=== PATIENT | male | born 1965 | race Caucasian/White ===

== ENCOUNTER 2023-05-14 12:41 | Outpatient (OUT) | payer OTHER, SELFPAY ==
[2023-05-14 12:50] LABS: Basophils Absolute Auto 0.1 10^3/uL (0.0-0.1); Eosinophils Absolute Auto 0.2 10^3/uL (0.0-0.7); Eosinophils Percent Auto 2.7 % (0.9-7.0); Hematocrit 35.5 % (42.0-54.0); Immature Granulocytes Abs Auto 0.01 10^3/uL (0.00-0.03); Immature Granulocytes Pct Auto 0.1 % (0.0-0.5); Lymphocytes Absolute Auto 2.5 10^3/uL (1.2-3.8); Lymphocytes Percent Auto 32.6 % (20.5-60.0); Mean Corpuscular Hemoglobin 24.7 pg (25.9-34.0); Mean Corpuscular Volume 79.6 fL (80.0-94.0); Mean Platelet Volume 9.4 fL (9.5-13.5); Monocytes Absolute Auto 0.9 10^3/uL (0.3-0.8); Monocytes Percent Auto 11.7 % (1.7-12.0); Neutrophils Absolute Auto 4.1 10^3/uL (1.4-6.5); Neutrophils Percent Auto 51.9 % (43.0-75.0); Platelet Count 313 10^3/uL (150-450); Red Blood Count 4.46 10^6/uL (4.70-6.10); Red Cell Distribution Width 18.4 % (11.0-15.0); White Blood Count 7.8 10^3/uL (4.0-11.0)
[2023-05-14 13:48] LABS: Alanine Aminotransferase 63 U/L (16-63); Albumin Level 3.6 g/dL (3.4-5.0); Alkaline Phosphatase 57 U/L (46-116); Anion Gap 9.1; Aspartate Amino Transferase 36 U/L (15-37); Bilirubin Total 0.4 mg/dL (0.2-1.0); Calcium 9.4 mg/dL (8.5-10.1); Carbon Dioxide 30.9 mmol/L (21.0-32.0); Chloride 102 mmol/L (98-107); Chol HDL Ratio 2.3; Cholesterol 114 mg/dL (<=200); Estimated GFR (African America >60 (>=60); Estimated GFR (Non-African Ame 57 (>=60); Globulin 3.7 g/dL; Glucose 104 mg/dL (74-106); HDL Cholesterol 50 mg/dL (40-60); Sodium 138 mmol/L (136-145); Total Protein 7.3 g/dL (6.4-8.2); Triglycerides 60 mg/dL (<=150)
== END 2023-05-14 12:42 | disposition home or self-care (01) ==
LOC: LAB 12:41
PROVIDERS: PCP Family Medicine; Visit Provider Nurse Practitioner Acute Care
DX: I25.10 Atherosclerotic heart disease of native coronary artery without angina pectoris (principal); I73.9 Peripheral vascular disease, unspecified
CPT/HCPCS: 36415; 80053; 80061; 85025

== ENCOUNTER 2023-06-03 07:36 | Outpatient (OUT) | payer OTHER, SELFPAY ==
--- NOTE | 2023-06-03 08:43 | CA_ITS ---
The [facility] Test Date: 2023-06-03 Pat Name: YOGI SPEARS Department: Room: - Gender: Male Hand Grinder: Shaniqua Allen : 1965 Requested By: [id number] Order Number: [id number] Reading MD: AIRAM BAPTISTE Interpretive Statements Biphasic doppler waveforms PVR waveforms with delayed upstroke, blunted amplitude and loss of dicrotic notch Right: - no significant pressure gradient between cuffs - abnormal KEISHA Left: - significant pressure gradient between the thigh and calf cuff - abnormal KEISHA Impression - significant arterial disease of the right lower extremity with mild hemodynamic impairment of the right lower extremity at rest (right KEISHA 0.94) - significant left femoropopliteal arterial disease with mild hemodynamic impairment of the left lower extremity at rest (left KEISHA 0.94) Electronically Signed On 06-04-2023 7:28:13 EDT by AIRAM BAPTISTE
== END 2023-06-03 07:37 | disposition home or self-care (01) ==
LOC: CARD 07:37
PROVIDERS: PCP Family Medicine; Visit Provider Nurse Practitioner Acute Care
DX: I73.9 Peripheral vascular disease, unspecified (principal)
CPT/HCPCS: 93924

== ENCOUNTER 2023-06-24 08:59 | Outpatient (OUT) | payer OTHER, SELFPAY ==
[2023-06-24 09:14] LABS: Estimated GFR (African America 59 (>=60); Estimated GFR (Non-African Ame 48 (>=60)
--- NOTE | 2023-06-24 10:00 | CT_ITS ---
The [address] [address] Patient Name: YOGI SPEARS MRN: [id number] date: 1965 Sex: M Assigned Patient Location: LAB Current Patient Location: LAB Accession/Order Number: [id number] Exam Date: 06/24/2023 09:35 Report Date: 06/24/2023 11:36 At the request of: TUYET LANGSTON Procedure: CT angio LE BI CT angio LE BI, 06/24/2023 9:35 AM EDT INDICATION: Peripheral Vacular Disease I73.9 COMPARISON: CT of chest and abdomen and pelvis of the same date. Technique: Axial images of 2 millimeters are obtained from the hepatic dome to feet with IV injection with MIP sagittal and coronal reconstructions. 3-D images were obtained with MIP reconstructions. Dose reduction techniques were achieved by using automated exposure control and/or adjustment of mA and/or kV according to patient size and/or use of iterative reconstruction technique. FINDINGS: Lung: The base of lungs are clear. No pleural effusion is noted. Liver and gallbladder: Unremarkable Kidneys and urinary bladder: Unremarkable The adrenal glands, pancreas, and spleen are unremarkable. Aorta: Mild atherosclerotic changes within the aorta with no significant stenosis. The celiac SMA and DIEGO and renal arteries are patent. There is one renal artery for each kidney. On the right: Moderate atherosclerotic changes within the right iliac arteries with no significant stenosis. The right common femoral shows mild stenosis. The stent within the proximal portion of the right superficial femoral artery is noted. There is mild focal stenosis in the distal right superficial femoral artery. The popliteal artery shows moderate focal stenosis in the distal portion. There is three-vessel runoff to the ankle. On the left: Mild atherosclerotic changes within the left iliac arteries. There is a focal stenosis in the midportion of the left external iliac artery. The left common femoral artery is unremarkable. There is a stent within the left superficial femoral artery. Moderate focal stenosis distal to the stent in the left superficial femoral artery is noted. There is mild focal stenosis in the proximal left popliteal artery. There is three-vessel runoff to the left ankle. Lymph node: There is no free fluid or lymph node enlargement by size criteria in the abdomen and pelvis. Bowel: No abnormality of small or large bowel is noted. Bone: There is no suspicious osteolytic or osteoblastic lesion. Mild soft tissue swelling within the both calves. IMPRESSION: 1. Mild focal stenosis in the distal right superficial femoral artery. Moderate focal stenosis in the distal left popliteal artery. 2. Mild focal stenosis within the mid left external iliac artery. Mild focal stenosis within the distal left superficial femoral artery. Bilateral three-vessel runoff to the ankles. Arterial stenosis reference: Mild = <50% stenosis. Moderate = 50-69% stenosis. Severe = >70% stenosis. Electronically authenticated by: FAYE WEN Date: 06/24/2023 11:36
== END 2023-06-24 09:00 | disposition home or self-care (01) ==
LOC: LAB 08:59
PROVIDERS: PCP Family Medicine; Visit Provider Family Medicine
DX: I73.9 Peripheral vascular disease, unspecified (principal)
CPT/HCPCS: 36415; 73706; 82565; Q9967

== ENCOUNTER 2023-11-01 14:00 | Outpatient (OUT) | payer OTHER, SELFPAY ==
[2023-11-01 14:33] LABS: Basophils Absolute Auto 0.1 10^3/uL (0.0-0.1); Basophils Percent Auto 0.4 % (0.2-2.0); Eosinophils Absolute Auto 0.2 10^3/uL (0.0-0.7); Eosinophils Percent Auto 1.2 % (0.9-7.0); Hematocrit 34.1 % (42.0-54.0); Hemoglobin 10.2 g/dL (14.0-18.0); Immature Granulocytes Abs Auto 0.05 10^3/uL (0.00-0.03); Immature Granulocytes Pct Auto 0.3 % (0.0-0.5); Lymphocytes Absolute Auto 3.5 10^3/uL (1.2-3.8); Lymphocytes Percent Auto 21.4 % (20.5-60.0); Mean Corpuscular HGB Conc 29.9 g/dL (29.9-35.2); Mean Corpuscular Hemoglobin 23.2 pg (25.9-34.0); Mean Corpuscular Volume 77.7 fL (80.0-94.0); Mean Platelet Volume 9.7 fL (9.5-13.5); Monocytes Absolute Auto 1.4 10^3/uL (0.3-0.8); Monocytes Percent Auto 8.5 % (1.7-12.0); Neutrophils Absolute Auto 11.2 10^3/uL (1.4-6.5); Neutrophils Percent Auto 68.2 % (43.0-75.0); Platelet Count 305 10^3/uL (150-450); Red Blood Count 4.39 10^6/uL (4.70-6.10); Red Cell Distribution Width 21.1 % (11.0-15.0); White Blood Count 16.4 10^3/uL (4.0-11.0)
[2023-11-01 14:45] LABS: Estimated Average Glucose 134 mg/dL; Glycohemoglobin A1C 6.3 % (4.5-6.2)
[2023-11-01 15:24] LABS: Prostate Specific Antigen Scrn 0.49 ng/mL (<=4.00)
[2023-11-01 15:28] LABS: Alanine Aminotransferase 23 U/L (16-63); Albumin Globulin Ratio 0.8; Albumin Level 3.1 g/dL (3.4-5.0); Alkaline Phosphatase 59 U/L (46-116); Aspartate Amino Transferase 11 U/L (15-37); BUN Creatinine Ratio 26.1; Bilirubin Total 0.4 mg/dL (0.2-1.0); Calcium 8.8 mg/dL (8.5-10.1); Carbon Dioxide 26.5 mmol/L (21.0-32.0); Chloride 106 mmol/L (98-107); Chol HDL Ratio 2.2; Cholesterol 123 mg/dL (<=200); Estimated GFR (African America >60 (>=60); Estimated GFR (Non-African Ame >60 (>=60); Free T3 1.65 pg/mL (2.18-3.98); Globulin 3.9 g/dL; Glucose 96 mg/dL (74-106); HDL Cholesterol 55 mg/dL (40-60); LDL Cholesterol Calculated 60.8 mg/dL; Potassium 4.5 mmol/L (3.5-5.1); Sodium 139 mmol/L (136-145); Triglycerides 36 mg/dL (<=150); VLDL CHOLESTEROL 7.2 mg/dL
== END 2023-11-01 14:01 | disposition home or self-care (01) ==
LOC: LAB 14:01
PROVIDERS: PCP Family Medicine; Visit Provider Family Medicine
DX: Z00.00 Encounter for general adult medical examination without abnormal findings (principal); I10 Essential (primary) hypertension
CPT/HCPCS: 36415; 80053; 80061; 83036; 84436; 84443; 84481; 85025; G0103

== ENCOUNTER 2024-01-04 09:52 | Outpatient (OUT) | payer OTHER, SELFPAY ==
--- NOTE | 2024-01-04 10:36 | CT_ITS ---
[address] [address] Patient Name: YOGI SPEARS MRN: [id number] date: 1965 Sex: M Assigned Patient Location: CT Current Patient Location: CARD Accession/Order Number: [id number] Exam Date: 01/04/2024 10:40 Report Date: 01/04/2024 15:34 At the request of: TUYET LANGSTON Procedure: CT lung screening low-dose EXAMINATION: CT lung screening low-dose HISTORY: Nicotine Dependence F17.200 COMPARISON: No relevant comparison available. TECHNIQUE: Multi-planar CT images were obtained without and/or with IV contrast as indicated by examination type. Axial, Coronal, and Sagittal images. Dose reduction techniques were achieved by using automated exposure control and/or adjustment of mA and/or kV according to patient size and/or use of iterative reconstruction technique. FINDINGS: LUNGS: Large calcified granuloma within right lung. No appreciable infiltrates or suspicious mass. PLEURA: No mass, effusion, or pneumothorax. VASCULATURE: No abnormality. FELICIA: A few calcified lymph nodes suggestive of chronic granulomatous disease. MEDIASTINUM: A few calcified lymph nodes. CARDIAC: No enlargement, pericardial thickening, or significant calcification. Coronary artery calcifications: Mild. AORTA: No aneurysm or dissection. CHEST WALL: No mass or axillary adenopathy. BONES: No bone lesion or fracture. LIMITED ABDOMEN: No suspicious findings Limited images of the upper abdomen. OTHER: Negative. CT/CT lung screening low-dose IMPRESSION: 1. Lung-RADS Category 1 Negative. No nodules and definitely benign nodules. Continue annual screening with LDCT in 12 months. Electronically authenticated by: ROSEY GATES Date: 01/04/2024 15:34
== END 2024-01-04 09:53 | disposition home or self-care (01) ==
LOC: CT 09:53
PROVIDERS: PCP Family Medicine; Visit Provider Family Medicine
DX: J20.9 Acute bronchitis, unspecified (principal); F17.200 Nicotine dependence, unspecified, uncomplicated
CPT/HCPCS: 71271

== ENCOUNTER 2024-01-04 09:54 | Outpatient (OUT) | payer OTHER, SELFPAY ==
--- NOTE | 2024-01-04 10:00 | CA_ITS ---
Patient Name: YOGI SPEARS MR#: [id number] : 1965 Exam Date: 01/04/2024 Ordering Doctor: DR LEANNE MAIN M.D. ECHOCARDIOGRAM REPORT PROCEDURE: CA ECHO DOPPLER COMPLETE INDICATIONS: Edema, smoker, hypertension, diabetes, h/o CVA, COMPARISON: None. DESCRIPTION: COMPLETE ECHOCARDIOGRAM Real-time transthoracic echocardiography with 2D, M-mode, spectral and color flow Doppler performed. QUALITY: Technical quality was good. 64 , 175#, BSA 1.85 m2, BP 112/70 LEFT VENTRICLE: Normal chamber size. Normal left ventricular wall thickness. LV EF: Global left ventricular systolic function is normal; visually estimated ejection fraction is 60 to 65%. No obvious wall motion abnormalities. DIASTOLIC: Normal diastolic function. ATRIAL SEPTUM: Visually appears intact. LEFT ATRIUM: Normal chamber size. RIGHT ATRIUM: Normal chamber size. RIGHT VENTRICLE: Normal chamber size. Normal right ventricular systolic function. TRICUSPID VALVE: Normal mobility and thickness. No stenosis with trivial regurgitation. Unable to assess right-sided pressures due to lack of measurable tricuspid regurgitation. MITRAL VALVE: Normal mobility and thickness. No evidence of mitral valve stenosis. There is no mitral annular calcification. No mitral regurgitation. AORTIC VALVE: Normal trileaflet appearance. No visible sclerosis. Normal leaflet mobility. No evidence of aortic valve stenosis. No aortic regurgitation. AORTIC ROOT: Normal diameter and appearance. Ascending aorta is normal in size. PULMONIC VALVE: Normal thickness and mobility. No stenosis. No regurgitation. PERICARDIUM: No evidence of pericardial effusion. IVC: Collapses with inspirations. IVC is normal in size. CONCLUSION: 1. Global left ventricular systolic function is normal; visually estimated ejection fraction is 60 to 65% 2. Normal right ventricular size and systolic function 3. Normal diastolic function 4. No significant valvular abnormalities Adult Echocardiography Procedure Report Left Ventricle LVEDD (3.7 - 5.6 cm): 4.40 cm LVESD (2.2 - 4.0 cm): 3.41 cm LVIVS thickness (0.6 - 1.2 cm): 1.01 cm LVPW thickness (0.5 - 1.0 cm): 0.94 cm e': 0.11 m/s E - e': 7.28 LVOT Max Gradient: 2.40 mm[Hg], 2.47 mm[Hg] LVOT Area (cm2): 0.78 m/s Peak Velocity (LVOT): 0.77 m/s, 0.79 m/s Mean Velocity (LVOT): 0.55 m/s LVOT Diameter 2.48 cm Left Atrium LA Volume Index (2D A2C): 36.07 ml/m2 Left Atrium Systolic Dimension: 3.66 cm Mitral Valve MV E to A Ratio: 1.14 Mitral Valve A-Wave Peak Velocity: 0.69 m/s Mitral Valve E-Wave Peak Velocity: 0.79 m/s Right Ventricle Aorta AO Root Diam: 3.35 cm Ascending Ao Diam: 2.62 cm Aortic Valve AoV Area (Peak Ehsan): 3.02 cm2, 2.99 cm2 AoV Area (VTI): 3.04 cm2, 2.92 cm2 Peak Velocity(Antegrade Flow): 1.25 m/s Peak Gradient(Antegrade Flow): 6.23 mm[Hg] Mean Velocity(Antegrade Flow): 0.89 m/s Mean Gradient(Antegrade Flow): 3.52 mm[Hg] Velocity Time Integral: 31.69 cm Tricuspid Valve Pulmonic Valve Mean Gradient: 1.75 mm[Hg] Mean Velocity: 0.63 m/s Peak Velocity: 0.84 m/s, 0.83 m/s Peak Gradient: 2.77 mm[Hg], 2.80 mm[Hg] Right Atrium Right Atrium Systolic Pressure: 30.28 ml, 30.28 ml Dictated by: Leanne Main M.D. on 01/04/2024 at 14:12 Approved by: Leanne Main M.D. on 01/04/2024 at 14:14
== END 2024-01-04 09:55 | disposition home or self-care (01) ==
LOC: CARD 09:55
PROVIDERS: PCP Family Medicine; Visit Provider Internal Medicine Interventional Cardiology
DX: R60.0 Localized edema (principal); J20.9 Acute bronchitis, unspecified; F17.200 Nicotine dependence, unspecified, uncomplicated
CPT/HCPCS: 71271; 93306

== ENCOUNTER 2024-11-29 13:20 | Outpatient (OUT) | payer OTHER, SELFPAY ==
[2024-11-29 14:20] LABS: Basophils Absolute Auto 0.1 10^3/uL (0.0-0.1); Basophils Percent Auto 0.9 % (0.2-2.0); Eosinophils Absolute Auto 0.3 10^3/uL (0.0-0.7); Eosinophils Percent Auto 3.4 % (0.9-7.0); Hematocrit 36.4 % (42.0-54.0); Hemoglobin 11.2 g/dL (14.0-18.0); Immature Granulocytes Abs Auto 0.03 10^3/uL (0.00-0.03); Immature Granulocytes Pct Auto 0.4 % (0.0-0.5); Lymphocytes Absolute Auto 2.6 10^3/uL (1.2-3.8); Lymphocytes Percent Auto 32.3 % (20.5-60.0); Mean Corpuscular HGB Conc 30.8 g/dL (29.9-35.2); Mean Corpuscular Hemoglobin 22.7 pg (25.9-34.0); Mean Corpuscular Volume 73.8 fL (80.0-94.0); Monocytes Absolute Auto 0.9 10^3/uL (0.3-0.8); Monocytes Percent Auto 10.8 % (1.7-12.0); Neutrophils Absolute Auto 4.3 10^3/uL (1.4-6.5); Neutrophils Percent Auto 52.2 % (43.0-75.0); Platelet Count 263 10^3/uL (150-450); Red Blood Count 4.93 10^6/uL (4.70-6.10); Red Cell Distribution Width 20.4 % (11.0-15.0); White Blood Count 8.1 10^3/uL (4.0-11.0)
[2024-11-29 14:49] LABS: Alanine Aminotransferase 46 U/L (16-63); Albumin Globulin Ratio 0.9; Albumin Level 3.4 g/dL (3.4-5.0); Alkaline Phosphatase 63 U/L (46-116); Anion Gap 10.2; Aspartate Amino Transferase 29 U/L (15-37); BUN Creatinine Ratio 15.6; Bilirubin Total 0.4 mg/dL (0.2-1.0); Chloride 104 mmol/L (98-107); Chol HDL Ratio 2.2; Cholesterol 102 mg/dL (<=200); Estimated GFR (African America >60 (>=60 mL/min/1.73m^2); Estimated GFR (Non-African Ame >60 (>=60 mL/min/1.73m^2); Free T3 2.64 pg/mL (2.18-3.98); Globulin 3.8 g/dL; Glucose 95 mg/dL (74-106); HDL Cholesterol 46 mg/dL (40-60); LDL Cholesterol Calculated 47.4 mg/dL; Potassium 4.2 mmol/L (3.5-5.1); Sodium 140 mmol/L (136-145); Thyroid Stimulating Hormone 1.176 uIU/mL (0.358-3.740); Total Protein 7.2 g/dL (6.4-8.2); Triglycerides 43 mg/dL (<=150); VLDL CHOLESTEROL 8.6 mg/dL
[2024-11-29 15:08] LABS: Estimated Average Glucose 128 mg/dL; Glycohemoglobin A1C 6.1 % (4.5-6.2)
== END 2024-11-29 13:21 | disposition home or self-care (01) ==
LOC: LAB 13:21
PROVIDERS: PCP Family Medicine; Visit Provider Family Medicine
DX: Z00.00 Encounter for general adult medical examination without abnormal findings (principal)
CPT/HCPCS: 36415; 80053; 80061; 83036; 84436; 84443; 84481; 85025; G0103

== ENCOUNTER 2024-11-30 12:59 | Outpatient (REF) | payer OTHER, SELFPAY ==
[2024-11-30 14:43] LABS: Internal Control Within Normal Limits; Occult Blood Negative
== END 2024-11-30 13:00 | disposition home or self-care (01) ==
LOC: LAB 12:59
PROVIDERS: PCP Family Medicine; Visit Provider Family Medicine
DX: Z00.00 Encounter for general adult medical examination without abnormal findings (principal)
CPT/HCPCS: G0328

== ENCOUNTER 2024-12-28 13:13 | Outpatient (OUT) | payer OTHER, SELFPAY ==
[2024-12-28 14:44] LABS: Free T3 2.36 pg/mL (2.18-3.98); Thyroid Stimulating Hormone 1.726 uIU/mL (0.358-3.740)
== END 2024-12-28 13:14 | disposition home or self-care (01) ==
LOC: LAB 13:14
PROVIDERS: PCP Family Medicine; Visit Provider Family Medicine
DX: E05.90 Thyrotoxicosis, unspecified without thyrotoxic crisis or storm (principal)
CPT/HCPCS: 36415; 84436; 84443; 84481

== ENCOUNTER 2024-12-29 12:58 | Outpatient (OUT) | payer OTHER, SELFPAY ==
--- NOTE | 2024-12-29 13:00 | CT_ITS ---
The [address] [address] Patient Name: YOGI SPEARS MRN: [id number] date: 1965 Sex: M Assigned Patient Location: CT Current Patient Location: CT Accession/Order Number: [id number] Exam Date: 12/29/2024 14:37 Report Date: 12/29/2024 14:40 At the request of: TUYET LANGSTON MD Procedure: CT chest wo con CT CHEST WITHOUT IV CONTRAST: CLINICAL HISTORY: Aspiration Pneumonia COMPARISON: CT chest 01/04/2024 TECHNIQUE: Spiral images were obtained through the chest without IV contrast. This CT exam was performed using one or more following dose reduction techniques: Automated exposure control, adjustment of the mA and/or kV according to patient size, or use of iterative reconstruction technique. FINDINGS: Mediastinum:Thoracic aorta is normal in caliber. Pulmonary trunk appears nondilated. No pericardial effusion. Partially calcified mediastinal and hilar lymph nodes. The esophagus is grossly unremarkable. Lungs:Emphysema. No consolidation pneumothorax or pleural effusion. Calcified granuloma right upper lobe. Abd:Splenic granulomas. Soft tissues/Bones: No acute findings. Osseous structures demonstrate degenerative change. CT/CT chest wo con IMPRESSION: No acute findings. Impression dictated by: Altaf Vega Jr., D.O. 12/29/2024 2:40 PM Dictation Location: [place] [address] Electronically authenticated by: [id number] Y Date: 12/29/2024 14:40
== END 2024-12-29 12:59 | disposition home or self-care (01) ==
LOC: CT 12:58
PROVIDERS: PCP Family Medicine; Visit Provider Family Medicine
DX: J69.0 Pneumonitis due to inhalation of food and vomit (principal)
CPT/HCPCS: 71250

== ENCOUNTER 2025-03-13 10:37 | Outpatient (OUT) | payer OTHER, SELFPAY ==
--- NOTE | 2025-03-13 10:45 | NM_ITS ---
Patient Name: YOGI SPEARS MR#: [id number] : 1965 Exam Date: 03/13/2025 Ordering Doctor: DR LEANNE MELO M.D. RADIOLOGY REPORT PROCEDURE: NM TARIK PERF SPECT REST STR COMPARISON: None. INDICATIONS: CORONARY ARTERY DISEASE, SILENT MYOCARDIAL ISCHEMIA TECHNIQUE: Exam Description: Stress/Rest one day protocol gated SPECT Rest Imagin.9 mCi Tc-99m Cardiolite IV on 03/13/2025 Stress Imaging 30.9 mCi Tc-99m Cardiolite IV on 03/13/2025 Exercise Protocol: 0.4 mg Lexiscan given IV Heart Rate (bpm): Rest: 90 Max: 114 PMHR: 70 Blood Pressure: Rest: 140/86 Max: 144/82 Symptoms: Rest and peak stress ECG findings were pending and the EKG portion of the study was pending per attending physician [facility] [[email or web address]] . For more details please see separate cardiac stress test report. FINDINGS: QUALITY OF STUDY: Good PERFUSION DEFECT: LOCATION: Inferolateral SIZE: Small SEVERITY: Mild TYPE: Reversible WALL MOTION: LV SIZE: End-diastolic volume 105 mL. TID / TCD: 1.0 LVEF: Calculated EF 57%. SUMMARY: Abnormal myocardial perfusion imaging study CONCLUSION: Abnormal myocardial perfusion stress test showing small area of mild inferolateral ischemia Normal left ventricle systolic function, ejection fraction 57% No evidence of transient ischemic dilatation, TID 1.0 EKG portion of stress test is reported separately Dictated by: Ventura Pierce MD on 03/13/2025 at 18:58 Approved by: Ventura Pierce MD on 03/13/2025 at 19:02
[2025-03-13] MEDS: REGADENOSON 0.4 MG/5 ML SYRINGE IV (13:10)
--- NOTE | 2025-03-13 17:00 | PM.STRESS ---
Stress Test Stress Test Requesting physician: Benedicto Main Procedure: <del>Vasodilator</del> <del>stress</del> <del>test</del> General Information: Reason for Stress Test: [Chest pain] Cardiac History and Risk Factors: [Tobacco use, prior history of stroke, family history of CAD, hypertension] Resting 12 - Lead Electrocardiogram: Baseline resting EKG showed sinus rhythm with normal intervals normal R wave progression Stress Test: Protocol: [Lexiscan] Blood Pressure Response: Blood pressure is noted to be 140/86 mmHg at baseline and increased to 144 over 82 mm with infusion of vasodilator Rhythm: Baseline rhythm was sinus rhythm and the patient remained in sinus with heart rate increasing up to 114 bpm which is notable at 70% of expected heart rate for the age. ST - Response: No evidence of ischemia noted Patient Response: Patient stated some heaviness that resolved within 3 minutes Interpretation: 1. No EKG evidence of ischemia seen 2. Baseline EKG reveals sinus rhythm with a rate infusion no arrhythmias were noted 3. Nuclear portion of the study to be dictated separately by radiology
== END 2025-03-13 10:38 | disposition home or self-care (01) ==
LOC: NM 10:38
PROVIDERS: PCP Family Medicine; Visit Provider Internal Medicine Interventional Cardiology
DX: I25.10 Atherosclerotic heart disease of native coronary artery without angina pectoris (principal); I25.6 Silent myocardial ischemia
CPT/HCPCS: 78452; 93017; A9500; J2785

== ENCOUNTER 2025-04-03 14:19 | Outpatient (OUT) | payer OTHER, SELFPAY ==
--- OUTSIDE RECORDS SUMMARY | 2025-04-03 14:37 | XMS_ITS | CCD ---
Author Organization [facility] Care Team Providers Care Perl Developer Name Role Phone ELTAHAWY, EHAB A Admitting Unavailable ELTAHAWY, EHAB A Attending Unavailable SELF, REFERRED Referring Unavailable TUYET BURNS Primary Care Unavailable ELTAHAWY, EHAB A Admitting Unavailable ELTAHAWY, EHAB A Attending Unavailable SELF, REFERRED Referring Unavailable TUYET BURNS Primary Care Unavailable ELTAHAWY, EHAB A Admitting Unavailable ELTAHAWY, EHAB A Attending Unavailable TUYET BURNS Primary Care Unavailable SELF, REFERRED Referring Unavailable YAJAIRA, DR ROSEY Gregg Consulting Unavailable KATELYNN .JENNIFER Attending Unavailable KATELYNN ., JENNIFER Admitting Unavailable HOY ., DR BENZ Primary Care Unavailable KATELYNN ., JENNIFER Consulting Unavailable KATY ., DR BENZ Primary Care Unavailable KATELYNN ., JENNIFER Admitting Unavailable RICARDO WAGNER Consulting Unavailable KATELYNN ., JENNIFER Attending Unavailable KATELYNN ., JENNIFER Consulting Unavailable MARY EDWARD Consulting Unavailable TRUDI LAGOS Consulting Unavailable JOE, DR DAVID Martínez Attending Unavailbishop DIAZ, DR DAVID Martínez Admitting Unavailbishop e STEVE .ANKUSH Consulting Unavailable KATY ., DR BENZ Primary Care Unavailable PAULIE NEWMAN Consulting Unavailable KATY ., DR BENZ Primary Care Unavailable NILL ., DR HERNANDEZ Consulting Unavailable NILL ., DR HERNANDEZ Attending Unavailable NILL ., DR HERNANDEZ Admitting Unavailable NANI II, GIL Consulting Unavailable ALONDRA VALENTE Consulting Unavailable KATY ., DR BENZ Attending Unavailable HOY ., DR BENZ Admitting Unavailable HOY ., DR BENZ Primary Care Unavailable KATY ., DR BENZ Consulting Unavailable TAYLOR .DR INÉS Consulting Unavailable WM, DR TRUDI Hector Consulting Unavailable YAJAIRA, DR ROSEY Gregg Consulting Unavailable LINCOLN RADER Consulting Unavailable SARA HERNANDEZ Consulting Unavailable ANN MARIE ALAVRADO Consulting Unavailable KATELYNN ., JENNIFER Attending Unavailable KATELYNN ., JENNIFER Admitting Unavailable KATELYNN ., JENNIFER Consulting Unavailable HOY ., DR BENZ Primary Care Unavailable HOY ., DR BENZ Consulting Unavailable HOY ., DR BENZ Attending Unavailable HOY ., DR BENZ Admitting Unavailable HOY ., DR BENZ Primary Care Unavailable HOY ., DR BENZ Primary Care Unavailable MISC, DOCTOR Consulting Unavailable MISC, DOCTOR Attending Unavailable MISC, DOCTOR Admitting Unavailable HOY ., DR BENZ Consulting Unavailable HOY ., DR BENZ Attending Unavailable HOY ., DR BENZ Admitting Unavailable HOY ., DR BENZ Primary Care Unavailable HOY ., DR BENZ Consulting Unavailable HOY ., DR BENZ Attending Unavailable HOY ., DR BENZ Admitting Unavailable HOY ., DR BENZ Primary Care Unavailable ZIEBER, DR ROSEY Gregg Consulting Unavailable NILL, Mary R Attending Unavailable Hoy, Tuyet Referring Unavailable NILL, Mary R Attending Unavailable ELTAHAWY, EHAB Attending Unavailable Problems Active Problems Problem Classification Problem Date Documented Date Episodic/Chronic Acute and unspecified renal failure (3 sources) Acute kidney failure, unspecified; Translations: [ACUTE KIDNEY FAILURE UNSPECIFIED] Onset: 3 Episodic Anxiety disorders (1 source) Anxiety disorder, unspecified; Translations: [ANXIETY DISORDER UNSPECIFIED] Onset: 3 Chronic Asthma (1 source) Unspecified asthma with status asthmaticus; Translations: [UNS ASTHMA W/STATUS ASTHMATICUS] Onset: 3 Chronic Coronary atherosclerosis and other heart disease (6 sources) Atherosclerotic heart disease of [place] coronary artery without angina pectoris; Translations: [Old myocardial infarction] Onset: 3 Chronic Diabetes mellitus without complication (1 source) Type 2 diabetes mellitus without complications; Translations: [TYPE 2 DM WITHOUT COMPLICATIONS] Onset: 3 Chronic Disorders of lipid metabolism (1 source) Pure hypercholesterolemia, unspecified; Translations: [PURE HYPERCHOLESTEROLEMIA UNSPEC] Onset: 3 Chronic Diverticulosis and diverticulitis (2 sources) Diverticulosis of large intestine without perforation or abscess without bleeding; Translations: [Diverticulitis of large intestine without perforation or abscess without bleeding] Onset: 3 Chronic Esophageal disorders (1 source) Gastro-esophageal reflux disease without esophagitis; Translations: [GERD WITHOUT ESOPHAGITIS] Onset: 3 Chronic Essential hypertension (3 sources) Essential (primary) hypertension; Translations: [ESSENTIAL PRIMARY HYPERTENSION] Onset: 2 Chronic Fluid and electrolyte disorders (1 source) Hypo-osmolality and hyponatremia; Translations: [HYPO-OSMOLALITY AND HYPONATREMIA] Onset: 3 Episodic Hypertension with complications and secondary hypertension (1 source) Hypertensive heart disease without heart failure; Translations: [HTN HEART DISEASE W/O HEART FAIL] Onset: 3 Chronic Influenza (1 source) Influenza due to other identified influenza virus with other respiratory manifestations; Translations: [FLU D/T OTH ID FLU VIR OTH RSP MANF] Onset: 3 Episodic Melanomas of skin (1 source) Personal history of malignant melanoma of skin; Translations: [PERSONAL HX MALIGNANT MELANOMA SKIN] Onset: 3 Episodic Menopausal disorders (1 source) Hormone replacement therapy; Translations: [HORMONE REPLACEMENT THERAPY] Onset: 3 Episodic Miscellaneous mental health disorders (1 source) Psychophysiologic insomnia; Translations: [PSYCHOPHYSIOLOGIC INSOMNIA] Onset: 3 Chronic Other aftercare (1 source) ferry terminal supervisor (current) use of aspirin; Translations: [BIOFUELS MANAGER CURRENT USE OF ASPIRIN] Onset: 3 Episodic Other aftercare (1 source) [facility] (current) use of oral hypoglycemic drugs; Translations: [CORRECTION USE ORAL HYPOGLYCEMIC DX] Onset: 3 Episodic Other aftercare (1 source) Other assistant terminal manager (current) drug therapy; Translations: [OTH CORRECTION CURRENT DRUG THERAPY] Onset: 3 Episodic Other aftercare (1 source) [facility] (current) use of antithrombotics/antiplate lets; Translations: [CORRECTION ANTITHROMBOT/ANTIPLATLETS ] Onset: 3 Episodic Other circulatory disease (3 sources) Personal history of transient ischemic attack (TIA), and cerebral infarction without residual deficits; Translations: [PERS HX TIA AND CI NO RESID DEFICIT] Onset: 3 Episodic Other circulatory disease (1 source) Hypotension, unspecified; Translations: [HYPOTENSION UNSPECIFIED] Onset: 3 Episodic Other injuries and conditions due to external causes (4 sources) Encounter for examination and observation following transport accident; Translations: [ENC EXAM AND OBSERV FLW TRANSPORT ACC] Onset: 3 Episodic Other nervous system disorders (1 source) Other chronic pain; Translations: [OTHER CHRONIC PAIN] Onset: 3 Chronic Other screening for suspected conditions (not mental disorders or infectious disease) (5 sources) Encounter for screening for malignant neoplasm of colon; Translations: [Encounter for screening for malignant neoplasm of prostate] Onset: 2 Episodic Joseline-; endo-; and myocarditis; cardiomyopathy (except that caused by tuberculosis or sexually transmitted disease) (1 source) Cardiomyopathy in diseases classified elsewhere; Translations: [CARDIOMYOPATHY DZ CLASSIFIED ELSW] Onset: 3 Chronic Peripheral and visceral atherosclerosis (7 sources) Peripheral vascular disease, unspecified; Translations: [PERIPHERAL VASCULAR DISEASE UNS] Onset: 3 Chronic Residual codes; unclassified (1 source) Family history of diabetes mellitus; Translations: [FAMILY HISTORY OF DIABETES MELLITUS] Onset: 3 Episodic Residual codes; unclassified (1 source) Family history of ischemic heart disease and other diseases of the circulatory system; Translations: [FAM HX ISCHEMIC HRT DZ OTH DZ CIRC] Onset: 3 Episodic Substance-related disorders (3 sources) Nicotine dependence, cigarettes, uncomplicated; Translations: [Nicotine dependence, unspecified, uncomplicated] Onset: 3 Chronic Substance-related disorders (1 source) Poisoning by heroin, accidental (unintentional), initial encounter; Translations: [POISON HEROIN ACCIDENTAL INIT ENC] Onset: 3 Episodic Thyroid disorders (1 source) Hypothyroidism, unspecified; Translations: [HYPOTHYROIDISM UNSPECIFIED] Onset: 3 Chronic Unclassified (4 sources) LOW BACK PAIN, UNSPECIFIED; Translations: [LOW BACK PAIN, UNSPECIFIED] Onset: 2 Unclassified (1 source) CONTACT W/AND (SUSP) EXPOS COVID-19; Translations: [CONTACT W/AND (SUSP) EXPOS COVID-19] Onset: 3 Past or Other Problems Problem Classification Problem Date Documented Da te Episodic/Chronic Genitourinary symptoms and ill-defined conditions (1 source) Other difficulties with micturition; Translations: [OTHER DIFFICULTIES WITH MICTURITION] Onset: 07-06-2022 Episodic Other gastrointestinal disorders (4 sources) Diarrhea, unspecified; Translations: [DIARRHEA UNSPECIFIED] Onset: 06-22-2022 Episodic Other injuries and conditions due to external causes (1 source) History of falling; Translations: [HISTORY OF FALLING] Onset: 06-16-2022 Episodic Other nervous system disorders (1 source) Paresthesia of skin; Translations: [PARESTHESIA OF SKIN] Onset: 06-16-2022 Episodic Unclassified (1 source) LOW BACK PAIN, UNSPECIFIED; Translations: [LOW BACK PAIN, UNSPECIFIED] Onset: 07-02-2022 Urinary tract infections (4 sources) Urinary tract infection, site not specified; Translations: [UTI SITE NOT SPECIFIED] Onset: 07-06-2022 Episodic Results Test Name Value Interpretation Reference Range Facility Orders Onlyon 03-16-2025 Orders Only [id number] George Mclean F 1965 Date Provider Department Center 03/16/2025 [id number], DAYNA Marte Family History Problem Relation Age of Onset Diabetes Mother Heart attack Father Family Status - Relation Status Age at Mother Alive Father [facility] 36on 03-15-[address]'s office. Per Dr. Burns's nurse he is wanting to know what we are doing with Yogi due to his stress testing being abnormal. Stress test was reviewed by Connie Hi CNP, per Connie set patient up with a heart cath. Advised Dr. Burns's office we would be setting patient up with a cath. Order placed for cardiac cath. Advised patient of stress testing findings and he would need a cath, advised patient CA will be calling him to schedule cath. Advised patient Dr. Burns is aware that we are setting him up with a cath. Patient verbalized understanding and agreed with plan of care [facility] Orders Onlyon 03-15-2025 Orders Only [id number] George Mclean F 1965 Provider Department Center 03/15/2025 [id number] Family History Problem Relation Age of Onset Diabetes Mother Heart attack Father Family Status - Relation Status Age at Mother Alive Father [facility] Office Visiton 02-22-2025 Follow-up visit [id number] George Mclean 1965 M Date Provider Department Center 02/22/2025 [facility] Family History Problem Relation Age of Onset Diabetes Mother Heart attack Father Family Status - Relation Status Age at Mother Alive Father Level of Service:62323 [place] OFFICE/OUTPATIENT ESTABLISHED MOD MDM 30 MIN Normal [facility] Group Home Documentson 03-31-2023 Group Home Documents [id number] 1.00CD:127 Normal [facility] Outside Colonoscopyon 2022 Outside Colonoscopy [id number] .00CD:127 [facility] Reminderson 11-26-2022 Reminders - From: Erma Glass LPN To: GSN - Clinical; Sent: 11/26/2022 14:02:54 EDT Show up: 10/25/2032 07:00:00 EST Subject: colonoscopy recall Due Date/Time: 11/25/2032 07:00:00 EDT Reminder/Recall Patient is due for screening colonoscopy 11/25/2032. Normal [facility] POINT OF CARE GLUCOSEon Glucose [Mass/Vol] 130 mg/dL Critically high 74-106 [facility] Comment on above: Performed By: #### P OCGLUC #### [facility] [address] [address] [address] Brianda Renee Facesheeton 11-03-2022 Facesheet [id number] .00CD:127 [facility] Consent for Procedure/Surger yon 11-02-2022 Consent for Procedure/Surgery [id number] .00CD:127 [facility] Ambulatory Visit Summaryon 0 10-30-2022 Ambulatory Visit Summary YOGI MCLEAN :1965 Visit Date:10/30/2022 Ambulatory Visit Instructions Your Diagnosis Screening for malignant neoplasm of colon Tobacco abuse Your Care Team Attending Physician - ISABEL GRIMM, Mary Gregg Primary Care Physician - Katy GRIMM, Tyuet Referring Physician - Tuyet Burns MD This Is Your Medications List Contact prescribing physician if questions or concerns aspirin (aspirin 81 mg Chew Tab) atorvastatin (atorvastatin 80 mg Tab) carvedilol (carvedilol 25 mg Tab) clonidine (cloNIDine 0.1 mg tab) clopidogrel (Plavix 75 mg Tab) diltiazem (diltiazem 120 mg oral capsule, extended release) empagliflozin (Jardiance 10 mg oral tablet) hydrochlorothiazide-v alsartan (hydrochlorothiazide- valsartan 12.5 mg-320 mg oral tablet) levothyroxine (levothyroxine 75 mcg (0.075 mg) Tab) metformin (metformin 500 mg Tab) pantoprazole (Pantoprazole [address] Tab) pioglitazone (Actos 30 mg Tab) polyethylene glycol 3350 (MiraLax) quetiapine (quetiapine 50 mg oral tablet) temazepam (Restoril 15 mg Cap) trazodone (traZODONE 100 mg Tab) Procedures Performed Excision of malignant neoplasm (08/31/2019), Umbilical hernia (05/03/2017), Cardiac catheterization, Insertion of stent into femoral artery, orif rt great and second toes. Discharge Vitals Heart Rate (Peripheral) 70 Respiratory Rate 16 Blood Pressure 118/66 Height 162.5 cm Height 64 in Weight 70.8 kg Weight 155.76 lb BMI 26.81 Medications What How Much When Instructions Unchanged aspirin (aspirin 81 mg Chew Tab) 1 Tablets Chewed Every day Contact prescribing physician if questions or concerns Unchanged atorvastatin (atorvastatin 80 mg Tab) 1 Tablets By Mouth Every day Contact prescribing physician if questions or concerns Unchanged carvedilol (carvedilol 25 mg Tab) 1 Tablets By Mouth 2 times a day Contact prescribing physician if questions or concerns Unchanged clonidine (cloNIDine 0.1 mg tab) 1 Tablets By Mouth 2 times a day Contact prescribing physician if questions or concerns Unchanged clopidogrel (Plavix 75 mg Tab) 1 Tablets By Mouth Every day Contact prescribing physician if questions or concerns Unchanged diltiazem (diltiazem 120 mg oral capsule, extended release) 1 Capsules By Mouth Every day Contact prescribing physician if questions or concerns Unchanged empagliflozin (Jardiance 10 mg oral tablet) 1 Tablets By Mouth Once a day (in the morning) Contact prescribing physician if questions or concerns Unchanged hydrochlorothiazide-v alsartan (hydrochlorothiazide- valsartan 12.5 mg-320 mg oral tablet) 1 Tablets By Mouth Every day Contact prescribing physician if questions or concerns Unchanged levothyroxine (levothyroxine 75 mcg (0.075 mg) Tab) 1 Tablets By Mouth Every day Contact prescribing physician if questions or concerns Unchanged metformin (metformin 500 mg Tab) 1 Tablets By Mouth 2 times a day Contact prescribing physician if questions or concerns Unchanged pantoprazole (Pantoprazole [address] Tab) 1 Tablets By Mouth 2 times a day Contact prescribing physician if questions or concerns Unchanged pioglitazone (Actos 30 mg Tab) 1 Tablets By Mouth Every day Contact prescribing physician if questions or concerns Unchanged polyethylene glycol 3350 (MiraLax) 17 Gram By Mouth Every day Contact prescribing physician if questions or concerns Unchanged quetiapine (quetiapine 50 mg oral tablet) 1 Tablets By Mouth At bedtime Contact prescribing physician if questions or concerns Unchanged temazepam (Restoril 15 mg Cap) 1 Capsules By Mouth Once a day (at bedtime) Contact prescribing physician if questions or concerns Unchanged trazodone (traZODONE 100 mg Tab) 1 Tablets By Mouth Once a day (at bedtime) Contact prescribing physician if questions or concerns Medications and Immunizations Administered Not Given influenza virus vaccine, inactivated, Patient Refuses Allergies No Known Allergies Problems Ongoing - Any problem that you are currently receiving treatment for. Anxiety BMI 26.0-26.9,adult CAD (coronary artery disease) Cardiomyopathy Chronic low back pain Chronic pharyngitis Diabetes Dysplastic nevus of trunk Embolic stroke Erectile dysfunction Essential hypertension Gastroesophageal reflux disease Heroin abuse Hyperlipidemia Hypertensive disorder Hypothyroidism Insomnia Jaundice Laryngopharyngeal reflux Lumbar radiculopathy Lung mass LVH (left ventricular hypertrophy) Malignant melanoma Malignant melanoma of flank PVD (peripheral vascular disease) Screening for malignant neoplasm of colon Smoker Tachycardia Tobacco abuse Historical - Any problem that you are no longer receiving treatment for. HTN (hypertension) Hypercholesteremia Thyroid Normal [facility] CBC AUTO DIFFon 10-19-2022 BASO # 0.1 103/ul Normal 0.0-0.1 [facility] Comment on above: Performed By: #### C MP #### [facility] [address] [address] [address] Brianda Renee Basophils/100 WBC (Bld) 0.6 % Normal 0.2-2.0 [facility] Comment on above: Performed By: #### C MP #### [facility] [address] [address] [address] Brianda Renee EO # 0.1 103/ul Normal 0.0-0.7 [facility] Comment on above: Performed By: #### C MP #### [facility] [address] [address] [address] Brianda Renee Eosinophils/100 WBC (Bld) 1.3 % Normal 0.9-7.0 [facility] Comment on above: Performed By: #### C MP #### [facility] [address] [place] [address] Dr. Brianda Renee Erythrocyte distribution width (RBC) [Ratio] 15.9 % Critically high 11.0-15.0 [facility] Comment on above: Performed By: #### C MP #### [facility] [address] [place] [address] Dr. Brianda Renee Hematocrit (Bld) [Volume fraction] 35.2 % Critically low 42.0-54.0 [facility] Comment on above: Performed By: #### C MP #### [facility] [address] [place] [address] Dr. Brianda Renee Hemoglobin (Bld) [Mass/Vol] 11.5 g/dL Critically low 14.0-18.0 [facility] Comment on above: Performed By: #### C MP #### [facility] [address] [place] [address] Dr. Brianda Renee IG # 0.05 10e3/ul Critically high 0.00-0.03 [facility] Comment on above: Performed By: #### C MP #### [facility] [address] [place] [address] Dr. Brianda Renee IG % 0.6 % Critically high 0.0-0.5 [facility] Comment on above: Performed By: #### C MP #### [facility] [address] [place] [address] Dr. Brianda Renee LYMPH # 2.6 103/ul Normal 1.2-3.8 [facility] Comment on above: Performed By: #### C MP #### [facility] [address] [place] [address] Dr. Brianda Renee Lymphocytes/100 WBC (Bld) 28.7 % Normal 20.5-60.0 [facility] Comment on above: Performed By: #### C MP #### [facility] [address] [place] [address] Dr. Brianda Renee MANUAL DIFF REQ NO Normal [facility] Comment on above: Performed By: #### C MP #### [facility] [address] [place] [address] Dr. Brianda Renee MCH (RBC) [Entitic mass] 30.3 pg Normal 25.9-34.0 [facility] Comment on above: Performed By: #### C MP #### [facility] [address] [place] [address] Dr. Brianda Renee MCHC (RBC) [Mass/Vol] 32.7 g/dL Normal 29.9-35.2 [facility] Comment on above: Performed By: #### C MP #### [facility] [address] [place] [address] Dr. Brianda Renee MCV (RBC) [Entitic vol] 92.6 fL Normal 80.0-94.0 [facility] Comment on above: Performed By: #### C MP #### [facility] [address] [place] [address] Dr. Brianda Renee MONO # 0.8 103/ul Normal 0.3-0.8 [facility] Comment on above: Performed By: #### C MP #### [facility] [address] [place] [address] Dr. Brianda Renee Monocytes/100 WBC (Bld) 8.6 % Normal 1.7-12.0 [facility] Comment on above: Performed By: #### C MP #### [facility] [address] [place] [address] Dr. Brianda Renee NEUT # 5.5 103/ul Normal 1.4-6.5 [facility] Comment on above: Performed By: #### C MP #### [facility] [address] [place] [address] Dr. Brianda Renee Neutrophils/100 WBC (Bld) 60.2 % Normal 43.0-75.0 [facility] Comment on above: Performed By: #### C MP #### [facility] [address] [place] [address] Dr. Brianda Renee Platelet mean volume (Bld) [Entitic vol] 9.0 fL Critically low 9.5-13.5 [facility] Comment on above: Performed By: #### C MP #### [facility] [address] [place] [address] Dr. Brianda Renee PLT 246 103/ul Normal 150-450 [facility] Comment on above: Performed By: #### C MP #### [facility] [address] [place] [address] Dr. Brianda Renee RBC 3.80 106/ul Critically low 4.70-6.10 [facility] Comment on above: Performed By: #### C MP #### [facility] [address] [place] [address] Dr. Brianda Renee WBC 9.1 103/ul Normal 4.0-11.0 [facility] Comment on above: Performed By: #### C MP #### [facility] [address] [place] [address] Dr. Brianda Renee LIPID PROFILEon 10-19-2022 CHOL-HDL RATIO NORM SEE BELOW Normal [facility] Comment on above: Result Comment: 3.3 - 4.4 LOW RISK 4.4 - 7.1 AVERAGE RISK 7.1 - 11.0 MODERATE RISK >11.0 HIGH RISK Performed By: #### C MP #### [facility] [address] [place] [address] Dr. Brianda Renee Cholesterol [Mass/Vol] 130 mg/dL Normal <=200 [facility] Comment on above: Performed By: #### C MP #### [facility] [address] [address] [address] Brianda Renee Cholesterol in HDL [Mass/Vol] 50 mg/dL Normal 40-60 [facility] Comment on above: Performed By: #### C MP #### [facility] [address] [address] [address] Brianda Renee Cholesterol in LDL [Mass/Vol] 65.8 mg/dL Normal [facility] Comment on above: Performed By: #### C MP #### [facility] [address] [address] [address] Brianda Renee Cholesterol.total/Ch olesterol in HDL [Mass ratio] 2.6 {ratio} Normal [facility] Comment on above: Performed By: #### C MP #### [facility] [address] [address] [address] Brianda Renee HDL NORMAL > or = 60 mg/dl - LO W CARDIOVASCULAR RISK <40 mg/dl - HIGH CARDIOVASCULAR RISK Normal [facility] Comment on above: Performed By: #### C MP #### [facility] [address] [address] [address] Brianda Renee LDL CALC NORMAL SEE BELOW Normal [facility] Comment on above: Result Comment: <100 mg/dl OPTIMAL 100 - 129 mg/dl NEAR OR ABOVE OPTIMAL 130 - 159 mg/dl BORDERLINE HIGH 160 - 189 mg/dl HIGH >190 mg/dl VERY HIGH Performed By: #### C MP #### [facility] [address] [address] [address] Brianda Renee Triglyceride [Mass/Vol] 71 mg/dL Normal <=150 [facility] Comment on above: Performed By: #### C MP #### [facility] [address] [address] [address] Brianda Renee VLDL CALC 14.2 mg/dL Normal [facility] Comment on above: Performed By: #### C MP #### [facility] [address] [address] [address] Brianda Renee PROF 14(COMP METB)on 023 Albumin [Mass/Vol] 3.4 g/dL Normal 3.4-5.0 [facility] Comment on above: Performed By: #### C MP #### [facility] [address] [address] [address] Brianda Renee Albumin/Globulin [Mass ratio] 1.1 {ratio} Normal [facility] Comment on above: Performed By: #### C MP #### [facility] [address] [address] Dr. Brianda Renee ALP [Catalytic activity/Vol] 63 U/L Normal 46-116 [facility] Comment on above: Performed By: #### C MP #### [facility] [address] [address] [address] Brianda Renee ALT [Catalytic activity/Vol] 98 U/L Critically high 16-63 [facility] Comment on above: Performed By: #### C MP #### [facility] [address] [place] [address] Dr. Brianda Renee Anion gap [Moles/Vol] 10.5 mmol/L Normal [facility] Comment on above: Performed By: #### C MP #### [facility] [address] [address] [address] Brianda Renee AST [Catalytic activity/Vol] 41 U/L Critically high 15-37 [facility] Comment on above: Performed By: #### C MP #### [facility] [address] [address] [address] Brianda Renee Bilirubin [Mass/Vol] 0.3 mg/dL Normal 0.2-1.0 [facility] Comment on above: Performed By: #### C MP #### [facility] [address] [address] [address] Brianda Renee Calcium [Mass/Vol] 9.3 mg/dL Normal 8.5-10.1 [facility] Comment on above: Performed By: #### C MP #### [facility] [address] [address] [address] Brianda Renee Chloride [Moles/Vol] 105 mmol/L Normal 98-107 [facility] Comment on above: Performed By: #### C MP #### [facility] [address] [address] [address] Brianda Renee CO2 [Moles/Vol] 29.8 mmol/L Normal 21.0-32.0 [facility] Comment on above: Performed By: #### C MP #### [facility] [address] [address] [address] Brianda Renee Creatinine [Mass/Vol] 1.15 mg/dL Normal 0.70-1.30 [facility] Comment on above: Performed By: #### C MP #### [facility] [address] [address] [address] Brianda Renee EGFR-AF INDIAN >60 Normal >=60 [facility] Comment on above: Performed By: #### C MP #### [facility] [address] [place] [address] Dr. Brianda Renee EGFR-NON AF INDIAN >60 Normal >=60 [facility] Comment on above: Performed By: #### C MP #### [facility] [address] [place] [address] Dr. Brianda Renee Globulin (S)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 MARMOLEJO UMICRO #### [facility] [address] [place] [address] Dr. Brianda Renee Neutrophils/100 WBC (Bld) 83.7 % Critically high 43.0-75.0 [facility] Comment on above: Performed By: #### ARRON DARLINGRO #### [facility] [address] [place] [address] Dr. Brianda Renee Platelet mean volume (Bld) [Entitic vol] 9.9 fL Normal 9.5-13.5 [facility] Comment on above: Performed By: #### ARRON DARLINGRO #### [facility] [address] [place] [address] Dr. Brianda Renee PLT 243 103/ul Normal 150-450 [facility] Comment on above: Performed By: #### JUNIOR DARLINGICRO #### [facility] [address] [place] [address] Dr. Brianda Renee RBC 3.50 106/ul Critically low 4.70-6.10 [facility] Comment on above: Performed By: #### ARRON DARLINGRO #### [facility] [address] [place] [address] Dr. Brianda Renee WBC 11.6 103/ul Critically high 4.0-11.0 [facility] Comment on above: Performed By: #### ARRON DARLINGRO #### [facility] [address] [place] [address] Dr. Brianda Renee POINT OF CARE GLUCOSEon Glucose [Mass/Vol] 210 mg/dL Critically high 74-106 [facility] Comment on above: Performed By: #### C MP #### [facility] [address] [place] [address] Dr. Brianda Renee PROF CHEM 8 (BAS METB)on Anion gap [Moles/Vol] 13.9 mmol/L Normal [facility] Comment on above: Performed By: #### C MP #### [facility] [address] [place] [address] Dr. Brianda Renee Calcium [Mass/Vol] 8.9 mg/dL Normal 8.5-10.1 [facility] Comment on above: Performed By: #### C MP #### [facility] [address] [place] [address] Dr. Brianda Renee Chloride [Moles/Vol] 100 mmol/L Normal 98-107 [facility] Comment on above: Performed By: #### C MP #### [facility] [address] [address] [address] Brianda Renee CO2 [Moles/Vol] 26.3 mmol/L Normal 21.0-32.0 [facility] Comment on above: Performed By: #### C MP #### [facility] [address] [address] [address] Brianda Renee Creatinine [Mass/Vol] 1.07 mg/dL Normal 0.70-1.30 [facility] Comment on above: Performed By: #### C MP #### [facility] [address] [address] [address] Brianda Renee EGFR-AF INDIAN >60 Normal >=60 [facility] Comment on above: Performed By: #### C MP #### [facility] [address] [address] [address] Brianda Renee EGFR-NON AF INDIAN >60 Normal >=60 [facility] Comment on above: Performed By: #### C MP #### [facility] [address] [address] [address] Brianda Renee Glucose [Mass/Vol] 176 mg/dL Critically high 74-106 [facility] Comment on above: Performed By: #### C MP #### [facility] [address] [address] [address] Brianda Renee Potassium [Moles/Vol] 3.2 mmol/L Critically low 3.5-5.1 [facility] Comment on above: Performed By: #### C MP #### [facility] [address] [address] [address] Brianda Renee Sodium [Moles/Vol] 137 mmol/L Normal 136-145 [facility] Comment on above: Performed By: #### C MP #### [facility] [address] [address] [address] Brianda Renee Urea nitrogen [Mass/Vol] 39.0 mg/dL Critically high 7.0-18.0 [facility] Comment on above: Performed By: #### C MP #### [facility] [address] [place] [address] Dr. Brianda Renee Urea nitrogen/Creatinine [Mass ratio] 36.4 mg/mg Normal [facility] Comment on above: Performed By: #### C MP #### [facility] [address] [place] [address] Dr. Brianda Renee CBC AUTO DIFFon 08-26-2022 BASO # 0.0 103/ul Normal 0.0-0.1 [facility] Comment on above: Performed By: #### P SASC #### [facility] [address] [place] [address] Dr. Brianda Renee Basophils/100 WBC (Bld) 0.1 % Critically low 0.2-2.0 [facility] Comment on above: Performed By: #### P SASC #### [facility] [address] [place] [address] Dr. Brianda Renee EO # 0.0 103/ul Normal 0.0-0.7 [facility] Comment on above: Performed By: #### P SASC #### [facility] [address] [place] [address] Dr. Brianda Renee Eosinophils/100 WBC (Bld) 0.0 % Critically low 0.9-7.0 [facility] Comment on above: Performed By: #### P SASC #### [facility] [address] [place] [address] Dr. Brianda Renee Erythrocyte distribution width (RBC) [Ratio] 15.9 % Critically high 11.0-15.0 [facility] Comment on above: Performed By: #### P SASC #### [facility] [address] [place] [address] Dr. Brianda Renee Hematocrit (Bld) [Volume fraction] 30.9 % Critically low 42.0-54.0 [facility] Comment on above: Performed By: #### P SASC #### [facility] [address] [place] [address] Dr. Brianda Renee Hemoglobin (Bld) [Mass/Vol] 10.5 g/dL Critically low 14.0-18.0 [facility] Comment on above: Performed By: #### P SASC #### [facility] [address] [place] [address] Dr. Brianda Renee IG # 0.03 10e3/ul Normal 0.00-0.03 [facility] Comment on above: Performed By: #### P SASC #### [facility] [address] [place] [address] Dr. Brianda Renee IG % 0.4 % Normal 0.0-0.5 [facility] Comment on above: Performed By: #### P SASC #### [facility] [address] [place] [address] Dr. Brianda Renee LYMPH # 0.7 103/ul Critically low 1.2-3.8 [facility] Comment on above: Performed By: #### P SASC #### [facility] [address] [place] [address] Dr. Brianda Renee Lymphocytes/100 WBC (Bld) 9.5 % Critically low 20.5-60.0 [facility] Comment on above: Performed By: #### P SASC #### [facility] [address] [place] [address] Dr. Brianda Renee MANUAL DIFF REQ NO Normal [facility] Comment on above: Performed By: #### P SASC #### [facility] [address] [place] [address] Dr. Brianda Renee MCH (RBC) [Entitic mass] 30.1 pg Normal 25.9-34.0 [facility] Comment on above: Performed By: #### P SASC #### [facility] [address] [address] [address] Brianda Renee MCHC (RBC) [Mass/Vol] 34.0 g/dL Normal 29.9-35.2 [facility] Comment on above: Performed By: #### P SASC #### [facility] [address] [place] [address] Dr. Brianda Renee MCV (RBC) [Entitic vol] 88.5 fL Normal 80.0-94.0 [facility] Comment on above: Performed By: #### P SASC #### [facility] [address] [place] [address] Dr. Brianda Renee MONO # 0.3 103/ul Normal 0.3-0.8 [facility] Comment on above: Performed By: #### P SASC #### [facility] [address] [place] [address] Dr. Brianda Renee Monocytes/100 WBC (Bld) 4.4 % Normal 1.7-12.0 [facility] Comment on above: Performed By: #### P SASC #### [facility] [address] [place] [address] Dr. Brianda Renee NEUT # 6.0 103/ul Normal 1.4-6.5 [facility] Comment on above: Performed By: #### P SASC #### [facility] [address] [place] [address] Dr. Brianda Renee Neutrophils/100 WBC (Bld) 85.6 % Critically high 43.0-75.0 [facility] Comment on above: Performed By: #### P SASC #### [facility] [address] [place] [address] Dr. Brianda Renee Platelet mean volume (Bld) [Entitic vol] 9.9 fL Normal 9.5-13.5 [facility] Comment on above: Performed By: #### P SASC #### [facility] [address] [place] [address] Dr. Brianda Renee PLT 215 103/ul Normal 150-450 [facility] Comment on above: Performed By: #### P SASC #### [facility] [address] [address] [address] Brianda Renee RBC 3.49 106/ul Critically low 4.70-6.10 [facility] Comment on above: Performed By: #### P SASC #### [facility] [address] [place] [address] Dr. Brianda Renee WBC 7.0 103/ul Normal 4.0-11.0 [facility] Comment on above: Performed By: #### P SASC #### [facility] [address] [address] [address] Brianda Renee POINT OF CARE GLUCOSEon Glucose [Mass/Vol] 298 mg/dL Critically high 74-106 [facility] Comment on above: Performed By: #### P OCGLUC #### [facility] [address] [place] [address] Dr. Brianda Renee Glucose [Mass/Vol] 277 mg/dL Critically high -106 [facility] Comment on above: Performed By: #### P OCGLUC #### [facility] [address] [place] [address] Dr. Brianda Renee Glucose [Mass/Vol] 315 mg/dL Critically high -106 [facility] Comment on above: Performed By: #### C MP #### [facility] [address] [place] [address] Dr. Brianda Renee PROF CHEM 8 (BAS METB)on Anion gap [Moles/Vol] 14.8 mmol/L Normal [facility] Comment on above: Performed By: #### C MP #### [facility] [address] [place] [address] Dr. Brianda Renee Calcium [Mass/Vol] 8.6 mg/dL Normal 8.5-10.1 [facility] Comment on above: Performed By: #### C MP #### [facility] [address] [place] [address] Dr. Brianda Renee Chloride [Moles/Vol] 100 mmol/L Normal 98-107 [facility] Comment on above: Performed By: #### C MP #### [facility] [address] [place] [address] Dr. Brianda Renee CO2 [Moles/Vol] 24.8 mmol/L Normal 21.0-32.0 [facility] Comment on above: Performed By: #### C MP #### [facility] [address] [place] [address] Dr. Brianda Renee Creatinine [Mass/Vol] 1.07 mg/dL Normal 0.70-1.30 [facility] Comment on above: Performed By: #### C MP #### [facility] [address] [address] [address] Brianda Renee EGFR-AF INDIAN >60 Normal >=60 [facility] Comment on above: Performed By: #### C MP #### [facility] [address] [address] [address] Brianda Renee EGFR-NON AF INDIAN >60 Normal >=60 [facility] Comment on above: Performed By: #### C MP #### [facility] [address] [address] [address] Brianda Renee Glucose [Mass/Vol] 205 mg/dL Critically high 74-106 [facility] Comment on above: Performed By: #### C MP #### [facility] [address] [place] [address] Dr. Brianda Renee Potassium [Moles/Vol] 3.6 mmol/L Normal 3.5-5.1 [facility] Comment on above: Performed By: #### C MP #### [facility] [address] [address] [address] Brianda Renee Sodium [Moles/Vol] 136 mmol/L Normal 136-145 [facility] Comment on above: Performed By: #### C MP #### [facility] [address] [place] [address] Dr. Brianda Renee Urea nitrogen [Mass/Vol] 28.0 mg/dL Critically high 7.0-18.0 [facility] Comment on above: Performed By: #### C MP #### [facility] [address] [address] [address] Brianda Renee Urea nitrogen/Creatinine [Mass ratio] 26.2 mg/mg Normal [facility] Comment on above: Performed By: #### C MP #### [facility] [address] [place] [address] Dr. Brianda Renee CULTURE SPUTUMon 08-25-2022 CULTURE SPUTUM Isolate 1 Marti albicans Light growth of Normal [facility] Comment on above: Performed By: #### O BSCRN #### [facility] [address] [place] [address] Dr. Brianda Renee D-DIMERon 08-25-2022 D-DIMER 1.63 mg/L FEU Critically high <=0.59 [facility] Comment on above: Performed By: #### E ARRON MARMOLEJORO #### [facility] [address] [place] [address] Dr. Brianda Renee D-DIMER COMMENTS SEE BELOW Normal [facility] Comment on above: Result Comment: Incr eases in D-Dimer concentration observed with thromboembolic events can be variable due to localization, size, and age of the thrombus. Therefore, a thromboembolic event cannot be diagnosed with certainty on the basis of the reference range. D-Dimers may also be elevated for a variety of disorders including: advanced age, , coronary disease, cancer, liver disease, infection, inflammation, hematoma, DIC, trauma, post-surgery, diabetes, thrombolytic or anticoagulant therapy, stress, and generalized hospitalization. Performed By: #### E KARIN MARMOLEJO #### [facility] [address] [place] [address] Dr. Brianda Renee GLYCOHEMOGLOBIN A1Con 2022 ADA RECOMMENDATION SEE BELOW Normal [facility] Comment on above: Result Comment: ADA RECOMMENDED LIMIT 4.0 - 6.0 ADA THERAPEUTIC TARGET < 7.0 ACTION SUGGESTED > 7.0 Performed By: #### C MP #### [facility] [address] [place] [address] Dr. Brianda Renee Glucose [Mass/Vol] 143 mg/dL Normal [facility] Comment on above: Performed By: #### C MP #### [facility] [address] [place] [address] Dr. Brianda Renee HbA1c (Bld) [Mass fraction] 6.6 % Critically high 4.5-6.2 [facility] Comment on above: Performed By: #### C MP #### [facility] [address] [place] [address] Dr. Brianda Renee NM LUNG VENT_PERFon 08-25-19 23 NM LUNG VENT_PERF EXAMINATION: NM LUNG VENT_PERF HISTORY: SHORTNESS OF BREATH ; history of DVT COMPARISON: No relevant comparison available. TECHNIQUE: After obtaining the patient's consent, a ventilation/perfusion scan was obtained in the usual manner. FINDINGS: VENTILATION: Numerous subsegmental defects throughout the lungs. PERFUSION: Numerous subsegmental defects throughout the lungs, but better than seen during ventilation imaging. V/Q MISMATCH: None significant. IMPRESSION: 1. No significant ventilation/perfusion mismatch to suggest pulmonary embolism, however, there is extensive subsegmental defects throughout the lungs; ventilation more pronounced than perfusion. While this suggests chronic lung disease or acute infiltrates, yesterday's chest x-ray does not demonstrate significant infiltrates. Probability of pulmonary embolism is low to moderate. Ultrasound of lower extremities for deep vein thrombus is recommended. Electronically authenticated by: ROSEY GATES Date: 2022-08-25 07:56 Normal [facility] POINT OF CARE GLUCOSEon Glucose [Mass/Vol] 320 mg/dL Critically high [address] [place] [address] Comment on above: Performed By: #### E KARIN MARMOLEJO #### [facility] [address] [place] [address] Dr. Brianda Renee Glucose [Mass/Vol] 257 mg/dL Critically high [address] [place] [address] Comment on above: Performed By: #### O BSCRN #### [facility] [address] [place] [address] Dr. Brianda Renee Glucose [Mass/Vol] 263 mg/dL Critically high [address] [place] [address] Comment on above: Performed By: #### C MP #### [facility] [address] [place] [address] Dr. Brianda Renee Glucose [Mass/Vol] 229 mg/dL Critically high [address] [place] [address] Comment on above: Performed By: #### P SASC #### [facility] [address] [place] [address] Dr. Brianda Renee PROF CHEM 8 (BAS METB)on Anion gap [Moles/Vol] 10.0 mmol/L Normal [facility] Comment on above: Performed By: #### C MP #### [facility] [address] [address] [address] Brianda Renee Calcium [Mass/Vol] 8.1 mg/dL Critically low 8.5-10.1 [facility] Comment on above: Performed By: #### C MP #### [facility] [address] [address] [address] Brianda Renee Chloride [Moles/Vol] 101 mmol/L Normal 98-107 [facility] Comment on above: Performed By: #### C MP #### [facility] [address] [address] [address] Brianda Renee CO2 [Moles/Vol] 26.9 mmol/L Normal 21.0-32.0 [facility] Comment on above: Performed By: #### C MP #### [facility] [address] [address] [address] Brianda Renee Creatinine [Mass/Vol] 1.47 mg/dL Critically high 0.70-1.30 [facility] Comment on above: Performed By: #### C MP #### [facility] [address] [address] [address] Brianda Renee EGFR-AF INDIAN 60 mL/min/1.73m2 Normal >=60 [facility] Comment on above: Performed By: #### C MP #### [facility] [address] [address] [address] Brianda Renee EGFR-NON AF INDIAN 50 mL/min/1.73m2 Critically low >=60 [facility] Comment on above: Performed By: #### C MP #### [facility] [address] [address] [address] Brianda Renee Glucose [Mass/Vol] 179 mg/dL Critically high 74-106 [facility] [facility] Comment on above: Performed By: #### C MP #### [facility] [address] [address] [address] Brianda Renee Potassium [Moles/Vol] 3.9 mmol/L Normal 3.5-5.1 [facility] Comment on above: Performed By: #### C MP #### [facility] [address] [place] [address] Dr. Brianda Renee Sodium [Moles/Vol] 134 mmol/L Critically low 136-145 [facility] Comment on above: Performed By: #### C MP #### [facility] [address] [place] [address] Dr. Brianda Renee Urea nitrogen [Mass/Vol] 37.0 mg/dL Critically high 7.0-18.0 [facility] Comment on above: Performed By: #### C MP #### [facility] [address] [place] [address] Dr. Brianda Renee Urea nitrogen/Creatinine [Mass ratio] 25.2 mg/mg Normal [facility] Comment on above: Performed By: #### C MP #### [facility] [address] [place] [address] Dr. Brianda Renee RESPIRATORY PANEL PLUSon Adenovirus Not detected Normal NOT DETECTED [facility] Comment on above: Performed By: #### P SASC #### [facility] [address] [place] [address] Dr. Brianda Renee B. Parapertusis Not detected Normal NOT DETECTED [facility] Comment on above: Performed By: #### P SASC #### [facility] [address] [place] [address] Dr. Brianda Malhotra. Pertussis Not detected Normal NOT DETECTED The [facility] Comment on above: Performed By: #### P SASC #### [facility] [address] [place] [address] Dr. Brianda Renee Chlamydia Pneumoniae Not detected Normal NOT DETECTED [facility] Comment on above: Performed By: #### P SASC #### [facility] [address] [place] [address] Dr. Brianda Renee Coronavirus 229E Not detected Normal NOT DETECTED [facility] Comment on above: Performed By: #### P SASC #### [facility] [address] [place] [address] Dr. Brianda Renee Coronavirus HKU1 Not detected Normal NOT DETECTED [facility] Comment on above: Performed By: #### P SASC #### [facility] [address] [address] [address] Brianda Renee Coronavirus NL63 Not detected Normal NOT DETECTED [facility] Comment on above: Performed By: #### P SASC #### [facility] [address] [address] [address] Brianda Renee Coronavirus OC43 Not detected Normal NOT DETECTED [facility] Comment on above: Performed By: #### P SASC #### [facility] [address] [address] [address] Brianda Renee Influenza A H1 2009 Not detected Normal NOT DETECTED [facility] Comment on above: Performed By: #### P SASC #### [facility] [address] [address] [address] Brianda Renee Influenza A H3 Detected Abnormal NOT DETECTED The [facility] Comment on above: Performed By: #### P SASC #### [facility] [address] [address] [address] Brianda Renee Influenza B Not detected Normal NOT DETECTED [facility] Comment on above: Performed By: #### P SASC #### [facility] [address] [address] [address] Brianda Renee Metapneumovirus Not detected Normal NOT DETECTED [facility] Comment on above: Performed By: #### P SASC #### [facility] [address] [address] [address] Brianda Renee Mycoplas. Pneumoniae Not detected Normal NOT DETECTED [facility] Comment on above: Performed By: #### P SASC #### [facility] [address] [address] [address] Brianda Renee Parainfluenza 1 Not detected Normal NOT DETECTED [facility] Comment on above: Performed By: #### P SASC #### [facility] [address] [address] [address] Brianda Renee Parainfluenza 2 Not detected Normal NOT DETECTED [facility] Comment on above: Performed By: #### P SASC #### [facility] [address] [address] [address] Brianda Renee Parainfluenza 3 Not detected Normal NOT DETECTED [facility] Comment on above: Performed By: #### P SASC #### [facility] [address] [place] [address] Dr. Brianda Renee Parainfluenza 4 Not detected Normal NOT DETECTED [facility] Comment on above: Performed By: #### P SASC #### [facility] [address] [place] [address] Dr. Brianda Renee Rhino/Enterovirus Not detected Normal NOT DETECTED [facility] Comment on above: Performed By: #### P SASC #### [facility] [address] [place] [address] Dr. Brianda Renee RP2 Header 1 RESPIRATORY PANEL: VIRUSES Normal [facility] Comment on above: Performed By: #### P SASC #### [facility] [address] [place] [address] Dr. Brianda Renee RP2 Header 2 RESPIRATORY PANEL: BACTERIA Normal [facility] Comment on above: Performed By: #### P SASC #### [facility] [address] [place] [address] Dr. Brianda Renee RSV Not detected Normal NOT DETECTED [facility] Comment on above: Performed By: #### P SASC #### [facility] [address] [place] [address] Dr. Brianda Renee SARS-CoV-2 (COVID-19) RNA JEREMIAH+probe Ql (Unsp spec) Not detected Normal NOT DETECTED [facility] Comment on above: Performed By: #### P SASC #### [facility] [address] [place] [address] Dr. Brianda Renee TSHon 08-25-2022 TSH 0.226 uIU/mL Critically low 0.358-3.740 [facility] Comment on above: Performed By: #### C MP #### [facility] [address] [place] [address] Dr. Brianda Renee UA RANDOM W/MICROSCOPICon BACTERIA TRACE Abnormal NONE SEEN [facility] Comment on above: Performed By: #### P SASC #### [facility] [address] [address] [address] Brianda Renee Bilirubin Ql (U) Negative Normal NEGATIVE [facility] Comment on above: Performed By: #### P SASC #### [facility] [address] [address] [address] Brianda Renee CAST NONE SEEN Normal NONE SEEN [facility] Comment on above: Performed By: #### P SASC #### [facility] [address] [address] [address] Brianda Renee Clarity (U) CLEAR Normal CLEAR [facility] Comment on above: Performed By: #### P SASC #### [facility] [address] [address] [address] Brianda Renee Color (U) LT. YELLOW Normal YELLOW [facility] Comment on above: Performed By: #### P SASC #### [facility] [address] [address] [address] Brianda Renee Crystals LM Nom (Urine sed) NONE SEEN Normal NONE SEEN [facility] Comment on above: Performed By: #### P SASC #### [facility] [address] [address] [address] Brianda Renee Epithelial cells LM Ql (Urine sed) NONE SEEN Normal NONE SEEN /RARE [facility] Comment on above: Performed By: #### P SASC #### [facility] [address] [address] [address] Brianda Renee Glucose Ql (U) 500 mg/dl Abnormal NEGATIVE [facility] Comment on above: Performed By: #### P SASC #### [facility] [address] [address] [address] Brianda Renee Hemoglobin Ql (U) SMALL Abnormal NEGATIVE [facility] Comment on above: Performed By: #### P SASC #### [facility] [address] [address] [address] Brianda Renee Ketones Ql (U) Negative Normal NEGATIVE [facility] Comment on above: Performed By: #### P SASC #### [facility] [address] [address] [address] Brianda Renee LEUKOCYTES Negative Normal NEGATIVE [facility] Comment on above: Performed By: #### P SASC #### [facility] [address] [address] [address] Brianda Renee MUCOUS NONE SEEN Normal NONE SEEN [facility] Comment on above: Performed By: #### P SASC #### [facility] [address] [address] [address] Brianda Renee Nitrite Ql (U) Negative Normal NEGATIVE [facility] Comment on above: Performed By: #### P SASC #### [facility] [address] [address] [address] Brianda Renee pH (U) 5.5 [pH] Normal 5-9 [facility] Comment on above: Performed By: #### P SASC #### [facility] [address] [place] [address] Dr. Brianda Renee RBC 0-2 Normal 0-2 [facility] Comment on above: Performed By: #### P SASC #### [facility] [address] [place] [address] Dr. Brianda Renee SPEC GRAVITY 1.025 Normal 1.005-<=1.025 [facility] Comment on above: Performed By: #### P SASC #### [facility] [address] [place] [address] Dr. Brianda Renee UA PROTEIN 30 mg/dl Abnormal NEGATIVE/ TRACE [facility] Comment on above: Performed By: #### P SASC #### [facility] [address] [place] [address] Dr. Brianda Renee Urobilinogen Qn (U) 1.0 {Anisa'U}/dL Normal 0.2 - 1. 0 [facility] Comment on above: Performed By: #### P SASC #### [facility] [address] [place] [address] Dr. Brianda Renee WBC NONE SEEN Normal NONE SEEN [facility] Comment on above: Performed By: #### P SASC #### [facility] [address] [address] [address] Brianda Renee US REJI DOP LEG BILon 023 US REJI DOP LEG ROBERTO EXAMINATION: US REJI DOP LEG ROBERTO HISTORY: SHORTNESS OF BREATH , bilateral leg pain COMPARISON: No relevant comparison available. FINDINGS: REGION: Bilateral lower extremities THROMBI: None. COMPRESSIBILITY: Normal compressibility. FLOW: Normal waveform and antegrade flow between 5 and 20 cm/s. OTHER: None. IMPRESSION: 1. No deep vein thrombus within the right or left lower extremity. Electronically authenticated by: ROSEY GATES Date: 2022-08-25 07:58 Normal [facility] XR CHEST 2 Von 08-25-2022 XR CHEST 2 V EXAMINATION: XR CHES T 2 V HISTORY: Dyspnea COMPARISON: XR chest 08/24/2022, nuclear medicine lung ventilation-perfusion scan on 323 FINDINGS: LUNGS: Mild haziness and stranding within medial right lung base. VASCULATURE: No increased pulmonary vasculature. PLEURA: No pneumothorax, effusion, or pleural thickening. CARDIAC: No cardiomegaly or cardiac silhouette abnormality. MEDIASTINUM: No visible mass or adenopathy. BONES: No fracture or visible bone lesion. OTHER: Negative. IMPRESSION: 1. Trace amount of right basilar infiltrates versus atelectasis; new since prior study. Electronically authenticated by: ROSEY GATES Date: 2022-08-25 09:22 Normal [facility] BNPon 08-24-2022 Natriuretic peptide B (Bld) [Mass/Vol] 1118.0 pg/mL Critically high <=900.0 [facility] Comment on above: Performed By: #### KARIN DARLING #### [facility] [address] [address] [address] Brianda Renee CBC AUTO DIFFon 08-24-2022 BASO # 0.0 103/ul Normal 0.0-0.1 [facility] Comment on above: Performed By: #### KARIN DARLING #### [facility] [address] [address] [address] Brianda Renee Basophils/100 WBC (Bld) 0.4 % Normal 0.2-2.0 [facility] Comment on above: Performed By: #### KARIN DARLING #### [facility] [address] [place] [address] Dr. Brianda Renee EO # 0.0 103/ul Normal 0.0-0.7 [facility] Comment on above: Performed By: #### ARRON DARLINGRO #### [facility] [address] [place] [address] Dr. Brianda Renee Eosinophils/100 WBC (Bld) 0.2 % Critically low 0.9-7.0 [facility] Comment on above: Performed By: #### ARRON DARLINGRO #### [facility] [address] [place] [address] Dr. Brianda Renee Erythrocyte distribution width (RBC) [Ratio] 16.0 % Critically high 11.0-15.0 [facility] Comment on above: Performed By: #### ARRON DARLINGRO #### [facility] [address] [place] [address] Dr. Brianda Renee Hematocrit (Bld) [Volume fraction] 35.2 % Critically low 42.0-54.0 [facility] Comment on above: Performed By: #### ARRON DARLINGRO #### [facility] [address] [place] [address] Dr. Brianda Renee Hemoglobin (Bld) [Mass/Vol] 11.7 g/dL Critically low 14.0-18.0 [facility] Comment on above: Performed By: #### ARRON DARLINGRO #### [facility] [address] [place] [address] Dr. Brianda Renee IG # 0.03 10e3/ul Normal 0.00-0.03 [facility] Comment on above: Performed By: #### ARRON DARLINGRO #### [facility] [address] [place] [address] Dr. Brianda Renee IG % 0.3 % Normal 0.0-0.5 [facility] Comment on above: Performed By: #### ARRON DARLINGRO #### [facility] [address] [place] [address] Dr. Brianda Renee LYMPH # 0.9 103/ul Critically low 1.2-3.8 [facility] Comment on above: Performed By: #### ARRON DARLINGRO #### [facility] [address] [place] [address] Dr. Brianda Renee Lymphocytes/100 WBC (Bld) 9.1 % Critically low 20.5-60.0 [facility] Comment on above: Performed By: #### ARRON DARLINGRO #### [facility] [address] [place] [address] Dr. Brianda Renee MANUAL DIFF REQ NO Normal [facility] Comment on above: Performed By: #### ARRON DARLINGRO #### [facility] [address] [place] [address] Dr. Brianda Renee MCH (RBC) [Entitic mass] 29.9 pg Normal 25.9-34.0 [facility] Comment on above: Performed By: #### ARRON DARLINGRO #### [facility] [address] [place] [address] Dr. Brianda Renee MCHC (RBC) [Mass/Vol] 33.2 g/dL Normal 29.9-35.2 [facility] Comment on above: Performed By: #### ARRON DARLINGRO #### [facility] [address] [place] [address] Dr. Brianda Renee MCV (RBC) [Entitic vol] 90.0 fL Normal 80.0-94.0 [facility] Comment on above: Performed By: #### ARRON DARLINGRO #### [facility] [address] [place] [address] Dr. Brianda Renee MONO # 0.8 103/ul Normal 0.3-0.8 [facility] Comment on above: Performed By: #### ARRON DARLINGRO #### [facility] [address] [place] [address] Dr. Brianda Renee Monocytes/100 WBC (Bld) 7.6 % Normal 1.7-12.0 [facility] Comment on above: Performed By: #### Mariela MARMOLEJO UMICRO #### [facility] [address] [place] [address] Dr. Brianda Renee NEUT # 8.4 103/ul Critically high 1.4-6.5 [facility] Comment on above: Performed By: #### E FRANCIE, UMICRO #### [facility] [address] [place] [address] Dr. Brianda Renee Neutrophils/100 WBC (Bld) 82.4 % Critically high 43.0-75.0 [facility] Comment on above: Performed By: #### E FRANCIE UMICRO #### [facility] [address] [place] [address] Dr. Brianda Renee Platelet mean volume (Bld) [Entitic vol] 9.4 fL Critically low 9.5-13.5 [facility] Comment on above: Performed By: #### Mariela MARMOLEJO UMICRO #### [facility] [address] [place] [address] Dr. Brianda Renee PLT 215 103/ul Normal 150-450 [facility] Comment on above: Performed By: #### Mariela MARMOLEJO UMICRO #### [facility] [address] [place] [address] Dr. Brianda Renee RBC 3.91 106/ul Critically low 4.70-6.10 [facility] Comment on above: Performed By: #### Mariela MARMOLEJO UMICRO #### [facility] [address] [place] [address] Dr. Brianda Renee WBC 10.1 103/ul Normal 4.0-11.0 [facility] Comment on above: Performed By: #### Mariela MARMOLEJO, UMICRO #### [facility] [address] [place] [address] Dr. Brianda Renee Covid-19 PCR ([facility])on SARS-CoV-2 (COVID-19) RNA JEREMIAH+probe Ql (Unsp spec) Not detected Normal NOT DETECTED [facility] Comment on above: Result Comment: When diagnostic testing is negative, the possibility of a false negative should be considered in the context of a patient's recent exposures and the presence of clinical signs and symptoms consistent with SARS-CoV-2. This test is not yet approved or cleared by the [place] FDA. When there are no FDA-approved or cleared tests available, and other criteria are met, FDA can make tests available under an emergency access mechanism called an Emergency Use Authorization (EUA). The EUA for this test is supported by the [place] of Health and Human Service's declaration that circumstances exist to justify the emergency use of in vitro diagnostics for the detection and/or diagnosis of the virus that causes COVID-19. This EUA will remain in effect for the duration of the COVID-19 declaration justifying emergency of IVDs, unless it is terminated or revoked by the FDA (after which the test may no longer be used). Performed By: #### C MP #### [facility] [address] [place] [address] Dr. Brianda Renee INFLUENZA A AND B [facility] 08-24 [facility] SEE BELOW Normal [facility] Comment on above: Result Comment: Nega tive for Flu A protein angiten. Infection due to Flu A cannot be ruled out. Flu A angiten in the sample may be below the detection limit of the test. Performed By: #### P SASC #### [facility] [address] [place] [address] Dr. Brianda Renee [facility] SEE BELOW Normal [facility] Comment on above: Result Comment: Nega tive for Flu B protein antigen. Infection due to Flu B cannot be ruled out. Flu B antigen in the sample may be below the detection limit of the test. Performed By: #### P SASC #### [facility] [address] [place] [address] Dr. Brianda Renee INFLUENZA A AG Negative Normal NEGATIVE SEE COMMENT [facility] Comment on above: Performed By: #### P SASC #### [facility] [address] [place] [address] Dr. Brianda Renee INFLUENZA B AG Negative Normal NEGATIVE SEE COMMENT [facility] Comment on above: Performed By: #### P SASC #### [facility] [address] [place] [address] Dr. Brianda Renee PROF CHEM 8 (BAS METB)on Anion gap [Moles/Vol] 10.9 mmol/L Normal [facility] Comment on above: Performed By: #### Mariela MARMOLEJO UMICRO #### [facility] [address] [address] [address] Brianda Renee Calcium [Mass/Vol] 8.9 mg/dL Normal 8.5-10.1 [facility] Comment on above: Performed By: #### Mariela MARMOLEJO, UMICRO #### [facility] [address] [address] [address] Brianda Renee Chloride [Moles/Vol] 95 mmol/L Critically low 98-107 [facility] Comment on above: Performed By: #### Mariela MARMOLEJO, UMICRO #### [facility] [address] [address] [address] Brianda Renee CO2 [Moles/Vol] 29.3 mmol/L Normal 21.0-32.0 [facility] Comment on above: Performed By: #### Mariela MARMOLEJO, UMICRO #### [facility] [address] [address] [address] Brianda Renee Creatinine [Mass/Vol] 2.48 mg/dL Critically high 0.70-1.30 [facility] Comment on above: Performed By: #### Mariela MARMOLEJO, UMICRO #### [facility] [address] [address] [address] Brianda Renee EGFR-AF INDIAN 33 mL/min/1.73m2 Critically low >=60 [facility] Comment on above: Performed By: #### Mariela MARMOLEJO, UMICRO #### [facility] [address] [address] [address] Brianda Renee EGFR-NON AF INDIAN 27 mL/min/1.73m2 Critically low >=60 [facility] Comment on above: Performed By: #### Mariela MARMOLEJO, UMICRO #### [facility] [address] [address] [address] Brianda Renee Glucose [Mass/Vol] 180 mg/dL Critically high 74-106 [facility] Comment on above: Performed By: #### ARRON DARLINGRO #### [facility] [address] [address] [address] Brianda Renee Potassium [Moles/Vol] 4.2 mmol/L Normal 3.5-5.1 [facility] Comment on above: Performed By: #### ARRON DARLINGRO #### [facility] [address] [place] [address] Dr. Brianda Renee Sodium [Moles/Vol] 131 mmol/L Critically low 136-145 [facility] Comment on above: Performed By: #### ARRON DARLINGRO #### [facility] [address] [place] [address] Dr. Brianda Renee Urea nitrogen [Mass/Vol] 55.0 mg/dL Critically high 7.0-18.0 [facility] Comment on above: Performed By: #### ARRON DARLINGRO #### [facility] [address] [place] [address] Dr. Brianda Renee Urea nitrogen/Creatinine [Mass ratio] 22.2 mg/mg Normal [facility] Comment on above: Performed By: #### ARRON DARLINGRO #### [facility] [address] [place] [address] Dr. Brianda Renee TROPONIN, HIGH SENSITIVITYon 08-24-2022 HSTROP 11.6 pg/mL Normal 4.0-76.1 [facility] Comment on above: Result Comment: CUT- OFF POINTS HAVE BEEN ESTABLISHED BASED ON THE FOURTH UNIVERSAL DEFINITIONS OF MYOCARDIAL INFARCTION. THE UPPER REFERENCE LIMIT (URL) OF TROPONIN, DEFINED THE 99TH PERCENTILE OF cTnI DISTRIBUTION IN A REFERENCE POPULATION, HAS BEEN CONFIRMED THE DECISION THRESHOLD FOR MD DIAGNOSIS. Performed By: #### ARRON DARLINGRO #### [facility] [address] [place] [address] Dr. Brianda Renee XR CHEST 1 Von 08-24-2022 XR CHEST 1 V EXAMINATION: XR CHES T 1 V HISTORY: SHORTNESS OF BREATH COMPARISON: 06/17/2022 TECHNIQUE: AP portable erect FINDINGS: LUNGS: No significant pulmonary parenchymal abnormalities. Stable right mid lung nodule, granuloma is favored VASCULATURE: No increased pulmonary vasculature. PLEURA: No pneumothorax, effusion, or pleural thickening. CARDIAC: No cardiomegaly or cardiac silhouette abnormality. MEDIASTINUM: No visible mass or adenopathy. BONES: No fracture or visible bone lesion. OTHER: Negative. IMPRESSION: No acute disease. Electronically authenticated by: TRUDI BURK Date: 2022-08-24 16:42 Normal [facility] CULTURE URINEon 07-06-2022 CULTURE URINE Culture Observations : NO GROWTH. Normal [facility] Comment on above: Performed By: #### O BSCRN #### [facility] [address] [place] [address] Dr. Brianda Renee UA RANDOM W/MICROSCOPICon BACTERIA NONE SEEN Normal NONE SEEN [facility] Comment on above: Performed By: #### U AMIC #### [facility] [address] [place] [address] Dr. Brianda Renee Bilirubin Ql (U) Negative Normal NEGATIVE [facility] Comment on above: Performed By: #### U AMIC #### [facility] [address] [place] [address] Dr. Brianda Renee CAST NONE SEEN Normal NONE SEEN [facility] Comment on above: Performed By: #### U AMIC #### [facility] [address] [place] [address] Dr. Brianda Renee Clarity (U) CLEAR Normal CLEAR [facility] Comment on above: Performed By: #### U AMIC #### [facility] [address] [place] [address] Dr. Brianda Renee Color (U) YELLOW Normal YELLOW [facility] Comment on above: Performed By: #### U AMIC #### [facility] [address] [place] [address] Dr. Brianda Renee Crystals LM Nom (Urine sed) NONE SEEN Normal NONE SEEN [facility] Comment on above: Performed By: #### U AMIC #### [facility] [address] [place] [address] Dr. Brianda Renee Epithelial cells LM Ql (Urine sed) NONE SEEN Normal NONE SEEN /RARE [facility] Comment on above: Performed By: #### U AMIC #### [facility] [address] [address] [address] Brianda Renee Glucose Ql (U) Negative Normal NEGATIVE [facility] Comment on above: Performed By: #### U AMIC #### [facility] [address] [address] [address] Brianda Renee Hemoglobin Ql (U) Negative Normal NEGATIVE The [facility] Comment on above: Performed By: #### U AMIC #### [facility] [address] [address] [address] Brianda Renee Ketones Ql (U) Negative Normal NEGATIVE [facility] Comment on above: Performed By: #### U AMIC #### [facility] [address] [address] [address] Brianda Renee LEUKOCYTES Negative Normal NEGATIVE [facility] Comment on above: Performed By: #### U AMIC #### [facility] [address] [address] [address] Brainda Renee MUCOUS NONE SEEN Normal NONE SEEN [facility] Comment on above: Performed By: #### U AMIC #### [facility] [address] [address] [address] Brianda Renee Nitrite Ql (U) Negative Normal NEGATIVE [facility] Comment on above: Performed By: #### U AMIC #### [facility] [address] [address] [address] Brianda Renee pH (U) 5.5 [pH] Normal 5-9 [facility] Comment on above: Performed By: #### U AMIC #### [facility] [address] [address] [address] Brianda Renee RBC NONE SEEN Abnormal 0-2 [facility] Comment on above: Performed By: #### U AMIC #### [facility] [address] [address] [address] Brianda Renee SPEC GRAVITY 1.030 Abnormal 1.005-<=1.025 The [facility] Comment on above: Performed By: #### U AMIC #### [facility] [address] [address] [address] Brianda Renee UA PROTEIN TRACE Normal NEGATIVE/ TRACE [facility] Comment on above: Performed By: #### U AMIC #### [facility] [address] [address] [address] Brianda Renee Urobilinogen Qn (U) 0.2 {Anisa'U}/dL Normal 0.2 - 1. 0 [facility] Comment on above: Performed By: #### U AMIC #### [facility] [address] [address] [address] Brianda Renee WBC 0-2 Abnormal NONE SEEN [facility] Comment on above: Performed By: #### U AMIC #### [facility] [address] [address] [address] Brianda Renee XR KUB 1 VIEWon 07-03-2022 XR KUB 1 VIEW EXAMINATION: XR KUB 1 VIEW HISTORY: Low back pain ; difficulty urinating COMPARISON: XR abdomen with PA chest 06/17/2022 FINDINGS: KIDNEY/URETER - RIGHT: No visible renal or ureteral calcifications. KIDNEY/URETER - LEFT: No visible renal or ureteral calcifications. PELVIS: No visible ureteral stones. BOWEL: No abnormal dilation or deviation. BONES: No acute abnormality. OTHER: Negative. No abnormal gaseous collections. IMPRESSION: 1. No visible urinary tract calculi. 2. Normal bowel gas pattern. No suspicious findings. Electronically authenticated by: ROSEY GATES Date: 2022-07-03 06:53 Normal [facility] XR LSPINE MIN 4 VIEWSon 06-23 XR LSPINE MIN 4 VIEWS EXAMINATION: XR LSPINE MIN 4 VIEWS HISTORY: Low back pain , acute since falling one week ago COMPARISON: XR L-spine 08/05/2020 FINDINGS: BONES: No significant spondylosis, scoliosis, fracture, or visible bony lesion. DISC SPACES: Moderate narrowing L5-S1. PARASPINOUS: Negative. No paraspinous abnormality is seen. OTHER: Negative. IMPRESSION: 1. L5-S1 moderate degenerative disc disease; stable to minimally progressed compared to 08/05/2020. 2. No appreciable acute abnormality. Electronically authenticated by: ROSEY GATES Date: 2022-07-03 06:55 Normal [facility] GI PANEL (PCR)on 06-19-2022 Adenovirus F 40/41 Not detected Normal NOT DETECTED [facility] Comment on above: Performed By: #### O BSCRN #### [facility] [address] [place] [address] Dr. Brianda Renee Astrovirus Not detected Normal NOT DETECTED [facility] Comment on above: Performed By: #### O BSCRN #### [facility] [address] [place] [address] Dr. Brianda Renee C. Diff toxin A/B Not detected Normal NOT DETECTED [facility] Comment on above: Performed By: #### O BSCRN #### [facility] [address] [place] [address] Dr. Brianda Reene Campylobacter Not detected Normal NOT DETECTED [facility] Comment on above: Performed By: #### O BSCRN #### [facility] [address] [place] [address] Dr. Brianda Renee Cryptosporidium Not detected Normal NOT DETECTED [facility] Comment on above: Performed By: #### O BSCRN #### [facility] [address] [place] [address] Dr. Brianda Renee Cyclos. Cayetanensis Not detected Normal NOT DETECTED [facility] Comment on above: Performed By: #### O BSCRN #### [facility] [address] [place] [address] Dr. Brianda Renee E. Coli O157 Not Applicable Normal Not Applicable [facility] Comment on above: Performed By: #### O BSCRN #### [facility] [address] [place] [address] Dr. Brianda Renee E. histolytica Not detected Normal NOT DETECTED The [facility] Comment on above: Performed By: #### O BSCRN #### [facility] [address] [place] [address] Dr. Brianda Renee EAEC Not detected Normal NOT DETECTED [facility] Comment on above: Performed By: #### O BSCRN #### [facility] [address] [place] [address] Dr. Brianda Renee EIEC Not detected Normal NOT DETECTED [facility] Comment on above: Performed By: #### O BSCRN #### [facility] [address] [place] [address] Dr. Brianda Renee EPEC Detected Abnormal NOT DETECTED [facility] Comment on above: Performed By: #### O BSCRN #### [facility] [address] [address] [address] Brianda Renee ETEC Not detected Normal NOT DETECTED [facility] Comment on above: Performed By: #### O BSCRN #### [facility] [address] [place] [address] Dr. Brianda Bhardwajlievita Not detected Normal NOT DETECTED [facility] Comment on above: Performed By: #### O BSCRN #### [facility] [address] [place] [address] Dr. Brianda FERRELL CONTROLS PASSED Normal The [facility] Comment on above: Performed By: #### O BSCRN #### [facility] [address] [place] [address] Dr. Brianda COSTA ROSA MARIA HEADER GI PANEL BACTERIA Normal [facility] Comment on above: Performed By: #### O BSCRN #### [facility] [address] [place] [address] Dr. Brianda GRAJEDA ECOLI GI PANEL DIARRHEAGENIC E.COLI / SHIGELLA Normal [facility] Comment on above: Performed By: #### O BSCRN #### [facility] [address] [place] [address] Dr. Brianda GRAJEDA INFO SEE BELOW Normal [facility] Comment on above: Result Comment: EAEC - Enteroaggregative E. Coli EPEC- Enteropathogenic E. Coli ETEC- Enterotoxigenic E. Coli lt/st STEC- Shigella-like toxin-producing E. Coli stx1/stx2 EIEC- Shigella/Enteroinvasive E. Coli Performed By: #### O BSCRN #### [facility] [address] [place] [address] Dr. Brianda GRAJEDA PARASITES GI PANEL PARASITES Normal [facility] Comment on above: Performed By: #### O BSCRN #### [facility] [address] [address] [address] Brianda GRAJEDA VIRUS GI PANEL VIRUSES Normal [facility] Comment on above: Performed By: #### O BSCRN #### [facility] [address] [address] [address] Brianda Renee Norovirus GI/GII Not detected Normal NOT DETECTED [facility] Comment on above: Performed By: #### O BSCRN #### [facility] [address] [address] [address] Brianda Renee P. Shigelloides Not detected Normal NOT DETECTED [facility] Comment on above: Performed By: #### O BSCRN #### [facility] [address] [address] [address] Brianda Renee Rotavirus A Not detected Normal NOT DETECTED [facility] Comment on above: Performed By: #### O BSCRN #### [facility] [address] [address] [address] Brianda Renee Salmonella Not detected Normal NOT DETECTED [facility] Comment on above: Performed By: #### O BSCRN #### [facility] [address] [address] [address] Brianda Renee Sapovirus Not detected Normal NOT DETECTED [facility] Comment on above: Performed By: #### O BSCRN #### [facility] [address] [address] [address] Brianda Renee STEC Not detected Normal NOT DETECTED [facility] Comment on above: Performed By: #### O BSCRN #### [facility] [address] [address] [address] Brianda Renee Vibrio Not detected Normal NOT DETECTED [facility] Comment on above: Performed By: #### O BSCRN #### [facility] [address] [address] [address] Brianda Renee Vibrio Cholera Not detected Normal NOT DETECTED [facility] Comment on above: Performed By: #### O BSCRN #### [facility] [address] [place] [address] Dr. Brianda Renee Y. Enterocolitica Not detected Normal NOT DETECTED [facility] Comment on above: Performed By: #### O BSCRN #### [facility] [address] [place] [address] Dr. Brianda Renee AMYLASEon 06-17-2022 Amylase [Catalytic activity/Vol] 78 U/L Normal 25-115 [facility] Comment on above: Performed By: #### C MP #### [facility] [address] [place] [address] Dr. Brianda Renee CBC AUTO DIFFon 06-17-2022 BASO # 0.1 103/ul Normal 0.0-0.1 [facility] Comment on above: Performed By: #### O BSCRN #### [facility] [address] [place] [address] Dr. Brianda Renee Basophils/100 WBC (Bld) 0.4 % Normal 0.2-2.0 [facility] Comment on above: Performed By: #### O BSCRN #### [facility] [address] [place] [address] Dr. Brianda Renee EO # 0.2 103/ul Normal 0.0-0.7 [facility] Comment on above: Performed By: #### O BSCRN #### [facility] [address] [place] [address] Dr. Brianda Renee Eosinophils/100 WBC (Bld) 1.6 % Normal 0.9-7.0 [facility] Comment on above: Performed By: #### O BSCRN #### [facility] [address] [place] [address] Dr. Brianda Renee Erythrocyte distribution width (RBC) [Ratio] 13.7 % Normal 11.0-15.0 [facility] Comment on above: Performed By: #### O BSCRN #### [facility] [address] [place] [address] Dr. Brianda Rneee Hematocrit (Bld) [Volume fraction] 42.2 % Normal 42.0-54.0 [facility] Comment on above: Performed By: #### O BSCRN #### [facility] [address] [place] [address] Dr. Brianda Renee Hemoglobin (Bld) [Mass/Vol] 14.2 g/dL Normal 14.0-18.0 [facility] Comment on above: Performed By: #### O BSCRN #### [facility] [address] [place] [address] Dr. Brianda Renee IG # 0.16 10e3/ul Critically high 0.00-0.03 [facility] Comment on above: Performed By: #### O BSCRN #### [facility] [address] [place] [address] Dr. Brianda Renee IG % 1.2 % Critically high 0.0-0.5 [facility] Comment on above: Performed By: #### O BSCRN #### [facility] [address] [place] [address] Dr. Brianda Renee LYMPH # 4.0 103/ul Critically high 1.2-3.8 [facility] Comment on above: Performed By: #### O BSCRN #### [facility] [address] [place] [address] Dr. Brianda Renee Lymphocytes/100 WBC (Bld) 29.8 % Normal 20.5-60.0 [facility] Comment on above: Performed By: #### O BSCRN #### [facility] [address] [place] [address] Dr. Brianda Renee MANUAL DIFF REQ NO Normal [facility] Comment on above: Performed By: #### O BSCRN #### [facility] [address] [place] [address] Dr. Brianda Renee MCH (RBC) [Entitic mass] 30.0 pg Normal 25.9-34.0 [facility] Comment on above: Performed By: #### O BSCRN #### [facility] [address] [place] [address] Dr. Brianda Renee MCHC (RBC) [Mass/Vol] 33.6 g/dL Normal 29.9-35.2 [facility] Comment on above: Performed By: #### O BSCRN #### [facility] [address] [place] [address] Dr. Brianda Renee MCV (RBC) [Entitic vol] 89.2 fL Normal 80.0-94.0 [facility] Comment on above: Performed By: #### O BSCRN #### [facility] [address] [place] [address] Dr. Brianda Renee MONO # 1.4 103/ul Critically high 0.3-0.8 [facility] Comment on above: Performed By: #### O BSCRN #### [facility] [address] [place] [address] Dr. Brianda Renee Monocytes/100 WBC (Bld) 10.4 % Normal 1.7-12.0 [facility] Comment on above: Performed By: #### O BSCRN #### [facility] [address] [place] [address] Dr. Brianda Renee NEUT # 7.5 103/ul Critically high 1.4-6.5 [facility] Comment on above: Performed By: #### O BSCRN #### [facility] [address] [place] [address] Dr. Brianda Renee Neutrophils/100 WBC (Bld) 56.6 % Normal 43.0-75.0 [facility] Comment on above: Performed By: #### O BSCRN #### [facility] [address] [place] [address] Dr. Brianda Renee Platelet mean volume (Bld) [Entitic vol] 9.2 fL Critically low 9.5-13.5 [facility] Comment on above: Performed By: #### O BSCRN #### [facility] [address] [place] [address] Dr. Brianda Renee PLT 316 103/ul Normal 150-450 [facility] Comment on above: Performed By: #### O BSCRN #### [facility] [address] [place] [address] Dr. Brianda Renee RBC 4.73 106/ul Normal 4.70-6.10 [facility] Comment on above: Performed By: #### O BSCRN #### [facility] [address] [place] [address] Dr. Brianda Renee WBC 13.3 103/ul Critically high 4.0-11.0 [facility] Comment on above: Performed By: #### O BSCRN #### [facility] [address] [place] [address] Dr. Brianda Renee ER URINE PROFILEon 2 Bilirubin Ql (U) Negative Normal NEGATIVE [facility] Comment on above: Performed By: #### C MP #### [facility] [address] [place] [address] Dr. Brianda Renee Clarity (U) CLEAR Normal CLEAR [facility] Comment on above: Performed By: #### C MP #### [facility] [address] [place] [address] Dr. Brianda Renee Color (U) YELLOW Normal YELLOW [facility] Comment on above: Performed By: #### C MP #### [facility] [address] [place] [address] Dr. Brianda HEIN A micrscopic examination will be performed if indicated. Normal [facility] Comment on above: Performed By: #### C MP #### [facility] [address] [place] [address] Dr. Brianda Renee Glucose Ql (U) 100 mg/dl Abnormal NEGATIVE [facility] Comment on above: Performed By: #### C MP #### [facility] [address] [place] [address] Dr. Brianda Renee Hemoglobin Ql (U) Negative Normal NEGATIVE [facility] Comment on above: Performed By: #### C MP #### [facility] [address] [place] [address] Dr. Brianda Renee Ketones Ql (U) Negative Normal NEGATIVE [facility] Comment on above: Performed By: #### C MP #### [facility] [address] [place] [address] Dr. Brianda Renee LEUKOCYTES Negative Normal NEGATIVE [facility] Comment on above: Performed By: #### C MP #### [facility] [address] [place] [address] Dr. Brianda Renee Nitrite Ql (U) Negative Normal NEGATIVE [facility] Comment on above: Performed By: #### C MP #### [facility] [address] [place] [address] Dr. Brianda Renee pH (U) 5.5 [pH] Normal 5-9 [facility] Comment on above: Performed By: #### C MP #### [facility] [address] [place] [address] Dr. Brianda Renee SPEC GRAVITY 1.025 Normal 1.005-<=1.025 [facility] Comment on above: Performed By: #### C MP #### [facility] [address] [place] [address] Dr. Brianda Renee UA PROTEIN Negative Normal NEGATIVE/ TRACE [facility] Comment on above: Performed By: #### C MP #### [facility] [address] [place] [address] Dr. Brianda Renee UR MICRO IND NOT INDICATED Normal [facility] Comment on above: Performed By: #### C MP #### [facility] [address] [place] [address] Dr. Brianda Renee Urobilinogen Qn (U) 0.2 {Anisa'U}/dL Normal 0.2 - 1. 0 [facility] Comment on above: Performed By: #### C MP #### [facility] [address] [place] [address] Dr. Brianda Renee LIPASEon 06-17-2022 Lipase [Catalytic activity/Vol] 185.0 U/L Normal 73.0-393.0 [facility] Comment on above: Performed By: #### C MP #### [facility] [address] [place] [address] Dr. Brianda Renee PROF 14(COMP METB)on 022 Albumin [Mass/Vol] 3.4 g/dL Normal 3.4-5.0 [facility] Comment on above: Performed By: #### C MP #### [facility] [address] [address] [address] Brianda Renee Albumin/Globulin [Mass ratio] 0.8 {ratio} Normal [facility] Comment on above: Performed By: #### C MP #### [facility] [address] [address] [address] Brianda Renee ALP [Catalytic activity/Vol] 87 U/L Normal 46-116 [facility] Comment on above: Performed By: #### C MP #### [facility] [address] [address] [address] Brianda Renee ALT [Catalytic activity/Vol] 179 U/L Critically high 16-63 [facility] Comment on above: Performed By: #### C MP #### [facility] [address] [place] [address] Dr. Brianda Renee Anion gap [Moles/Vol] 9.6 mmol/L Normal [facility] Comment on above: Performed By: #### C MP #### [facility] [address] [place] [address] Dr. Brianda Renee AST [Catalytic activity/Vol] 78 U/L Critically high 15-37 [facility] Comment on above: Performed By: #### C MP #### [facility] [address] [place] [address] Dr. Brianda Renee Bilirubin [Mass/Vol] 0.3 mg/dL Normal 0.2-1.0 [facility] Comment on above: Performed By: #### C MP #### [facility] [address] [place] [address] Dr. Brianda Renee Calcium [Mass/Vol] 9.4 mg/dL Normal 8.5-10.1 [facility] Comment on above: Performed By: #### C MP #### [facility] [address] [place] [address] Dr. Brianda Renee Chloride [Moles/Vol] 99 mmol/L Normal 98-107 [facility] Comment on above: Performed By: #### C MP #### [facility] [address] [place], [place] [id number] Dr. Brianda Renee CO2 [Moles/Vol] 30.6 mmol/L Normal 21.0-32.0 [facility] Comment on above: Performed By: #### C MP #### [facility] [address] [place] [address] Dr. Brianda Renee Creatinine [Mass/Vol] 1.56 mg/dL Critically high 0.70-1.30 [facility] Comment on above: Performed By: #### C MP #### [facility] [address] [place] [address] Dr. Brianda Renee EGFR-AF INDIAN 56 mL/min/1.73m2 Critically low >=60 [facility] Comment on above: Performed By: #### C MP #### [facility] [address] [place] [address] Dr. Brianda Renee EGFR-NON AF INDIAN 46 mL/min/1.73m2 Critically low >=60 [facility] Comment on above: Performed By: #### C MP #### [facility] [address] [place] [address] Dr. Brianda Renee Globulin (S) [Mass/Vol] 4.4 g/dL Normal [facility] Comment on above: Performed By: #### C MP #### [facility] [address] [place] [address] Dr. Brianda Renee Glucose [Mass/Vol] 118 mg/dL Critically high 74-106 [facility] Comment on above: Performed By: #### C MP #### [facility] [address] [address] [address] Brianda Renee Potassium [Moles/Vol] 4.2 mmol/L Normal 3.5-5.1 [facility] Comment on above: Performed By: #### C MP #### [facility] [address] [place] [address] Dr. Brianda Renee Protein [Mass/Vol] 7.8 g/dL Normal 6.4-8.2 [facility] Comment on above: Performed By: #### C MP #### [facility] [address] [place] [address] Dr. Brianda Renee Sodium [Moles/Vol] 135 mmol/L Critically low 136-145 [facility] Comment on above: Performed By: #### C MP #### [facility] [address] [address] [address] Brianda Renee Urea nitrogen [Mass/Vol] 44.0 mg/dL Critically high 7.0-18.0 [facility] Comment on above: Performed By: #### C MP #### [facility] [address] [address] [address] Brianda Renee Urea nitrogen/Creatinine [Mass ratio] 28.2 mg/mg Normal [facility] Comment on above: Performed By: #### C MP #### [facility] [address] [address] [address] Brianda Renee XR ABD FLAT UP_PA González 06-17 XR ABD FLAT UP_PA CH EXAMINATION: XR ABD FLAT UP_PA CH HISTORY: Pain , acute diarrhea COMPARISON: XR chest 03/11/2021, 2016 FINDINGS: LUNGS: Stable chronic calcified granuloma within right upper lung. No acute infiltrates or suspicious findings. MEDIASTINUM: No abnormal widening. BOWEL GAS PATTERN: Multiple fluid levels throughout the colon without abnormal dilation. Unremarkable small bowel. FREE AIR: None. CALCIFICATIONS: None significant. BONES: No fracture or visible bone lesion. OTHER: Negative. IMPRESSION: 1. No acute cardiopulmonary process. 2. Findings compatible with history of diarrhea. No bowel obstruction or suspicious findings. Electronically authenticated by: ROSYE GATES Date: 2022-06-17 10:06 Normal [facility] CBC AUTO DIFFon 06-14-2022 BASO # 0.0 103/ul Normal 0.0-0.1 [facility] Comment on above: Performed By: #### KARIN DARLING #### [facility] [address] [address] [address] Brianda Renee Basophils/100 WBC (Bld) 0.4 % Normal 0.2-2.0 [facility] Comment on above: Performed By: #### KARIN DARLING #### [facility] [address] [address] [address] Brianda Renee EO # 0.1 103/ul Normal 0.0-0.7 [facility] Comment on above: Performed By: #### ARRON DARLINGRO #### [facility] [address] [place] [address] Dr. Brianda Renee Eosinophils/100 WBC (Bld) 1.5 % Normal 0.9-7.0 [facility] Comment on above: Performed By: #### ARRON DARLINGRO #### [facility] [address] [place] [address] Dr. Brianda Renee Erythrocyte distribution width (RBC) [Ratio] 13.6 % Normal 11.0-15.0 [facility] Comment on above: Performed By: #### ARRON DARLINGRO #### [facility] [address] [place] [address] Dr. Brianda Renee Hematocrit (Bld) [Volume fraction] 41.1 % Critically low 42.0-54.0 [facility] Comment on above: Performed By: #### ARRON DARLINGRO #### [facility] [address] [place] [address] Dr. Brianda Renee Hemoglobin (Bld) [Mass/Vol] 14.0 g/dL Normal 14.0-18.0 [facility] Comment on above: Performed By: #### JUNIOR DARLINGICRO #### [facility] [address] [place] [address] Dr. Brianda Renee IG # 0.03 10e3/ul Normal 0.00-0.03 [facility] Comment on above: Performed By: #### Mariela MARMOLEJO UMICRO #### [facility] [address] [place] [address] Dr. Brianda Renee IG % 0.4 % Normal 0.0-0.5 [facility] Comment on above: Performed By: #### Mariela MARMOLEJO UMICRO #### [facility] [address] [place] [address] Dr. Brianda Renee LYMPH # 1.9 103/ul Normal 1.2-3.8 [facility] Comment on above: Performed By: #### JUNIOR DARLINGICRO #### [facility] [address] [place] [address] Dr. Brianda Renee Lymphocytes/100 WBC (Bld) 24.4 % Normal 20.5-60.0 [facility] Comment on above: Performed By: #### Mariela MARMOLEJO UMICRO #### [facility] [address] [place] [address] Dr. Brianda Renee MANUAL DIFF REQ NO Normal [facility] Comment on above: Performed By: #### Mariela MARMOLEJO UMICRO #### [facility] [address] [place] [address] Dr. Brianda Renee MCH (RBC) [Entitic mass] 29.9 pg Normal 25.9-34.0 [facility] Comment on above: Performed By: #### Mariela MARMOLEJO UMICRO #### [facility] [address] [place] [address] Dr. Brianda Renee MCHC (RBC) [Mass/Vol] 34.1 g/dL Normal 29.9-35.2 [facility] Comment on above: Performed By: #### Mariela MARMOLEJO UMICRO #### [facility] [address] [place] [address] Dr. Brianda Renee MCV (RBC) [Entitic vol] 87.6 fL Normal 80.0-94.0 [facility] Comment on above: Performed By: #### JUNIOR DARLINGICRO #### [facility] [address] [place] [address] Dr. Brianda Renee MONO # 0.8 103/ul Normal 0.3-0.8 [facility] Comment on above: Performed By: #### JUNIOR DARLINGICRO #### [facility] [address] [place] [address] Dr. Brianda Renee Monocytes/100 WBC (Bld) 10.4 % Normal 1.7-12.0 [facility] Comment on above: Performed By: #### Mariela MARMOLEJO UMICRO #### [facility] [address] [place] [address] Dr. Brianda Renee NEUT # 5.0 103/ul Normal 1.4-6.5 [facility] Comment on above: Performed By: #### ARRON DARLINGRO #### [facility] [address] [address] [address] Brianda Renee Neutrophils/100 WBC (Bld) 62.9 % Normal 43.0-75.0 [facility] Comment on above: Performed By: #### ARRON DARLINGRO #### [facility] [address] [address] [address] Brianda Renee Platelet mean volume (Bld) [Entitic vol] 9.5 fL Normal 9.5-13.5 [facility] Comment on above: Performed By: #### ARRON DARLINGRO #### [facility] [address] [address] [address] Brianda Renee PLT 297 103/ul Normal 150-450 [facility] Comment on above: Performed By: #### ARRON DARLINGRO #### [facility] [address] [address] [address] Brianda Renee RBC 4.69 106/ul Critically low 4.70-6.10 [facility] Comment on above: Performed By: #### ARRON DARLINGRO #### [facility] [address] [address] [address] Brianda Renee WBC 7.9 103/ul Normal 4.0-11.0 [facility] Comment on above: Performed By: #### ARRON DARLINGRO #### [facility] [address] [place] [address] LSPINE WO CONon 2 [address] LSPINE WO CON CT LUMBAR SPINE WITHOUT CONTRAST. HISTORY: DORSALGIA, UNSPECIFIED COMPARISON: X-ray lumbar spine dated 08/05/2020 TECHNIQUE: CT of the lumbar spine without contrast. Sagittal and coronal reformatted images created. FINDINGS: BONY ALIGNMENT: There is normal lumbar lordosis. No spondylolisthesis. VERTEBRAL BODY: No acute fracture of the lumbar vertebral bodies. There is mild to moderate L5-S1 degenerative spondylosis. CENTRAL CANAL/NEURAL FORAMINA: There is moderate to severe L5-S1 central canal stenosis and effacement of the bilateral lateral recesses, left greater than right, secondary to disc osteophyte complex.. There is a residual thecal sac diameter of approximately 6 mm. There is mild bilateral L5-S1 neural foraminal stenosis. SOFT TISSUE: No mass or inflammation. VISUALIZED ABDOMEN/PELVIS: Right nephrolithiasis. IMPRESSION: 1. Moderate to severe L5-S1 central canal stenosis and effacement of the bilateral lateral recesses secondary to disc osteophyte complex.. Correlate for bilateral S1 radiculopathy, left greater than right. Consider MRI lumbar spine. 2. No acute osseous abnormality of the lumbar spine. 3. Mild to moderate L5-S1 degenerative spondylosis. Electronically authenticated by: PAULIE NEWMAN Date: 2022-06-14 19:54 Normal [facility] Covid-19 PCR (CVDTBH)on 05-24 SARS-CoV-2 (COVID-19) RNA JEREMIAH+probe Ql (Unsp spec) Not detected Normal NOT DETECTED [facility] Comment on above: Result Comment: When diagnostic testing is negative, the possibility of a false negative should be considered in the context of a patient's recent exposures and the presence of clinical signs and symptoms consistent with SARS-CoV-2. This test is not yet approved or cleared by the [place] FDA. When there are no FDA-approved or cleared tests available, and other criteria are met, FDA can make tests available under an emergency access mechanism called an Emergency Use Authorization (EUA). The EUA for this test is supported by the Administrative Representative of Health and Human Service's declaration that circumstances exist to justify the emergency use of in vitro diagnostics for the detection and/or diagnosis of the virus that causes COVID-19. This EUA will remain in effect for the duration of the COVID-19 declaration justifying emergency of IVDs, unless it is terminated or revoked by the FDA (after which the test may no longer be used). Performed By: #### C MP #### [facility] [address] [place] [address] Dr. Brianda ERNANDEZ URINE PROFILEon 2 Bilirubin Ql (U) Negative Normal NEGATIVE [facility] Comment on above: Performed By: #### Mariela MARMOLEJO UMICRO #### [facility] [address] [place] [address] Dr. Brianda Renee Clarity (U) CLEAR Normal CLEAR [facility] Comment on above: Performed By: #### Mariela MARMOLEJO UMICRO #### [facility] [address] [place] [address] Dr. Brianda Renee Color (U) LT. YELLOW Normal YELLOW [facility] Comment on above: Performed By: #### Mariela MARMOLEJO UMICRO #### [facility] [address] [place] [address] Dr. Brianda HEIN A micrscopic examination will be performed if indicated. Normal [facility] Comment on above: Performed By: #### Mariela MARMOLEJO UMICRO #### [facility] [address] [place] [address] Dr. Brianda Renee Glucose Ql (U) >1000 Abnormal NEGATIVE [facility] Comment on above: Performed By: #### Mariela MARMOLEJO UMICRO #### [facility] [address] [place] [address] Dr. Brianda Renee Hemoglobin Ql (U) TRACE-INTACT Abnormal NEGATIVE [facility] Comment on above: Performed By: #### Mariela MARMOLEJO UMICRO #### [facility] [address] [place] [address] Dr. Brianda Renee Ketones Ql (U) Negative Normal NEGATIVE [facility] Comment on above: Performed By: #### JUNIOR DARLINGICRO #### [facility] [address] [place] [address] Dr. Brianda Renee LEUKOCYTES Negative Normal NEGATIVE [facility] Comment on above: Performed By: #### Mariela MARMOLEJO UMICRO #### [facility] [address] [place] [address] Dr. Brianda Renee Nitrite Ql (U) Negative Normal NEGATIVE [facility] Comment on above: Performed By: #### Mariela MARMOLEJO UMICRO #### [facility] [address] [place] [address] Dr. Brianda Renee pH (U) 6.0 [pH] Normal 5-9 [facility] Comment on above: Performed By: #### ARRON DARLINGRO #### [facility] [address] [place] [address] Dr. Brianda Renee SPEC GRAVITY 1.015 Normal 1.005-<=1.025 [facility] Comment on above: Performed By: #### JUNIOR DARLINGICRO #### [facility] [address] [place] [address] Dr. Brianda Renee UA PROTEIN Negative Normal NEGATIVE/ TRACE [facility] Comment on above: Performed By: #### ARRON DARLINGRO #### [facility] [address] [place] [address] Dr. Brianda Renee UR MICRO IND INDICATED Normal [facility] Comment on above: Performed By: #### ARRON DARLINGRO #### [facility] [address] [place] [address] Dr. Brianda Renee Urobilinogen Qn (U) 0.2 {Anisa'U}/dL Normal 0.2 - 1. 0 [facility] Comment on above: Performed By: #### ARRON DARLINGRO #### [facility] [address] [place] [address] Dr. Brianda Renee PROF 14(COMP METB)on 022 Albumin [Mass/Vol] 3.1 g/dL Critically low 3.4-5.0 [facility] Comment on above: Performed By: #### C MP #### [facility] [address] [place] [address] Dr. Brianda Renee Albumin/Globulin [Mass ratio] 0.7 {ratio} Normal [facility] Comment on above: Performed By: #### C MP #### [facility] [address] [place] [address] Dr. Brianda Renee ALP [Catalytic activity/Vol] 75 U/L Normal 46-116 [facility] Comment on above: Performed By: #### C MP #### [facility] [address] [place] [address] Dr. Brianda Renee ALT [Catalytic activity/Vol] 259 U/L Critically high 16-63 [facility] Comment on above: Performed By: #### C MP #### [facility] [address] [address] [address] Brianda Renee Anion gap [Moles/Vol] 8.9 mmol/L Normal [facility] Comment on above: Performed By: #### C MP #### [facility] [address] [address] [address] Brianda Renee AST [Catalytic activity/Vol] 161 U/L Critically high 15-37 [facility] Comment on above: Performed By: #### C MP #### [facility] [address] [address] [address] Brianda Renee Bilirubin [Mass/Vol] 0.4 mg/dL Normal 0.2-1.0 [facility] Comment on above: Performed By: #### C MP #### [facility] [address] [place] [address] Dr. Brianda Renee Calcium [Mass/Vol] 9.6 mg/dL Normal 8.5-10.1 [facility] Comment on above: Performed By: #### C MP #### [facility] [address] [address] [address] Brianda Renee Chloride [Moles/Vol] 96 mmol/L Critically low 98-107 [facility] Comment on above: Performed By: #### C MP #### [facility] [address] [address] [address] Brianda Renee CO2 [Moles/Vol] 31.8 mmol/L Normal 21.0-32.0 [facility] Comment on above: Performed By: #### C MP #### [facility] [address] [place] [address] Dr. Brianda Renee Creatinine [Mass/Vol] 2.05 mg/dL Critically high 0.70-1.30 [facility] Comment on above: Performed By: #### C MP #### [facility] [address] [place] [address] Dr. Brianda Renee EGFR-AF INDIAN 41 mL/min/1.73m2 Critically low >=60 [facility] Comment on above: Performed By: #### C MP #### [facility] [address] [address] [address] Brianda Renee EGFR-NON AF INDIAN 34 mL/min/1.73m2 Critically low >=60 [facility] Comment on above: Performed By: #### C MP #### [facility] [address] [address] [address] Brianda Renee Globulin (S) [Mass/Vol] 4.5 g/dL Normal [facility] Comment on above: Performed By: #### C MP #### [facility] [address] [address] [address] Brianda Renee Glucose [Mass/Vol] 267 mg/dL Critically high 74-106 [facility] Comment on above: Performed By: #### C MP #### [facility] [address] [address] [address] Brianda Renee Potassium [Moles/Vol] 3.7 mmol/L Normal 3.5-5.1 [facility] Comment on above: Performed By: #### C MP #### [facility] [address] [address] [address] Brianda Renee Protein [Mass/Vol] 7.6 g/dL Normal 6.4-8.2 [facility] Comment on above: Performed By: #### C MP #### [facility] [address] [address] [address] Brianda Renee Sodium [Moles/Vol] 133 mmol/L Critically low 136-145 [facility] Comment on above: Performed By: #### C MP #### [facility] [address] [address] [address] Brianda Renee Urea nitrogen [Mass/Vol] 58.0 mg/dL Critically high 7.0-18.0 [facility] Comment on above: Performed By: #### C MP #### [facility] [address] [address] [address] Brianda Renee Urea nitrogen/Creatinine [Mass ratio] 28.3 mg/mg Normal [facility] Comment on above: Performed By: #### C MP #### [facility] [address] [place] [address] Dr. Brianda Renee URINE MICROSCOPIC ONLYon BACTERIA TRACE Abnormal NONE SEEN [facility] Comment on above: Performed By: #### E RUR, UMICRO #### [facility] [address] [place] [address] Dr. Brianda Renee Bacteria identified Cx Nom (U) NOT INDICATED Normal [facility] Comment on above: Performed By: #### E RUR, UMICRO #### [facility] [address] [place] [address] Dr. Brianda Renee CAST SEEN Abnormal NONE SEEN [facility] Comment on above: Performed By: #### E RUR, UMICRO #### [facility] [address] [place] [address] Dr. Brianda Renee Crystals LM Nom (Urine sed) NONE SEEN Normal NONE SEEN [facility] Comment on above: Performed By: #### E RUR, UMICRO #### [facility] [address] [place] [address] Dr. Brianda Renee Epithelial cells LM Ql (Urine sed) RARE Normal NONE SEEN /RARE [facility] Comment on above: Performed By: #### E RUR, UMICRO #### [facility] [address] [place] [address] Dr. Brianda Renee HYALINE CAST RARE Normal [facility] Comment on above: Performed By: #### E RUR, UMICRO #### [facility] [address] [place] [address] Dr. Brianda Renee MUCOUS NONE SEEN Normal NONE SEEN [facility] Comment on above: Performed By: #### E RUR, UMICRO #### [facility] [address] [place] [address] Dr. Brianda Renee RBC 0-2 Normal 0-2 [facility] Comment on above: Performed By: #### E RUR, UMICRO #### [facility] [address] [place] [address] Dr. Brianda Renee WBC 0-2 Abnormal NONE SEEN [facility] Comment on above: Performed By: #### ARRON DARLINGRO #### [facility] [address] [place] [address] Dr. Brianda Renee CBC AUTO DIFFon 02-11-2022 BASO # 0.1 103/ul Normal 0.0-0.1 [facility] Comment on above: Performed By: #### ARRON DARLINGRO #### [facility] [address] [place] [address] Dr. Brianda Renee Basophils/100 WBC (Bld) 0.7 % Normal 0.2-2.0 [facility] Comment on above: Performed By: #### ARRON DARLINGRO #### [facility] [address] [place] [address] Dr. Brianda Renee EO # 0.2 103/ul Normal 0.0-0.7 [facility] Comment on above: Performed By: #### ARRON DARLINGRO #### [facility] [address] [place] [address] Dr. Brianda Renee Eosinophils/100 WBC (Bld) 2.0 % Normal 0.9-7.0 [facility] Comment on above: Performed By: #### ARRON DARLINGRO #### [facility] [address] [place] [address] Dr. Brianda Renee Erythrocyte distribution width (RBC) [Ratio] 13.6 % Normal 11.0-15.0 [facility] Comment on above: Performed By: #### ARRON DARLINGRO #### [facility] [address] [place] [address] Dr. Brianda Renee Hematocrit (Bld) [Volume fraction] 44.0 % Normal 42.0-54.0 [facility] Comment on above: Performed By: #### ARRON DARLINGRO #### [facility] [address] [place] [address] Dr. Brianda Renee Hemoglobin (Bld) [Mass/Vol] 14.7 g/dL Normal 14.0-18.0 [facility] Comment on above: Performed By: #### E RUR, UMICRO #### [facility] [address] [address] [address] Brianda Renee IG # 0.02 10e3/ul Normal 0.00-0.03 [facility] Comment on above: Performed By: #### E RUR, UMICRO #### [facility] [address] [address] [address] Brianda Renee IG % 0.2 % Normal 0.0-0.5 [facility] Comment on above: Performed By: #### E RUR, UMICRO #### [facility] [address] [place] [address] Dr. Brianda Renee LYMPH # 2.6 103/ul Normal 1.2-3.8 [facility] Comment on above: Performed By: #### E FRANCIE, UMICRO #### [facility] [address] [place] [address] Dr. Brianda Renee Lymphocytes/100 WBC (Bld) 25.2 % Normal 20.5-60.0 [facility] Comment on above: Performed By: #### Mariela MARMOLEJO, UMICRO #### [facility] [address] [place] [address] Dr. Brianda Renee MANUAL DIFF REQ NO Normal [facility] Comment on above: Performed By: #### E FRANCIE, UMICRO #### [facility] [address] [place] [address] Dr. Brianda Renee MCH (RBC) [Entitic mass] 29.5 pg Normal 25.9-34.0 [facility] Comment on above: Performed By: #### E RUMarysol, UMICRO #### [facility] [address] [place] [address] Dr. Brianda Renee MCHC (RBC) [Mass/Vol] 33.4 g/dL Normal 29.9-35.2 [facility] Comment on above: Performed By: #### E RUR, UMICRO #### [facility] [address] [place] [address] Dr. Brianda Renee MCV (RBC) [Entitic vol] 88.2 fL Normal 80.0-94.0 [facility] Comment on above: Performed By: #### KARIN DARLING #### [facility] [address] [place] [address] Dr. Brianda Renee MONO # 1.0 103/ul Critically high 0.3-0.8 [facility] Comment on above: Performed By: #### KARIN DARLING #### [facility] [address] [place] [address] Dr. Brianda eRnee Monocytes/100 WBC (Bld) 9.9 % Normal 1.7-12.0 [facility] Comment on above: Performed By: #### KARIN DARLING #### [facility] [address] [place] [address] Dr. Brianda Renee NEUT # 6.5 103/ul Normal 1.4-6.5 [facility] Comment on above: Performed By: #### KARIN DARLING #### [facility] [address] [place] [address] Dr. Brianda Renee Neutrophils/100 WBC (Bld) 62.0 % Normal 43.0-75.0 [facility] Comment on above: Performed By: #### KARIN DARLING #### [facility] [address] [place] [address] Dr. Brianda Renee Platelet mean volume (Bld) [Entitic vol] 9.2 fL Critically low 9.5-13.5 [facility] Comment on above: Performed By: #### ARRON DARLINGRO #### [facility] [address] [place] [address] Dr. Brianda Renee PLT 273 103/ul Normal 150-450 [facility] Comment on above: Performed By: #### KARIN DARLING #### [facility] [address] [place] [address] Dr. Brianda Renee RBC 4.99 106/ul Normal 4.70-6.10 [facility] Comment on above: Performed By: #### KARIN DARLING #### [facility] [address] [address] [address] Brianda Renee WBC 10.4 103/ul Normal 4.0-11.0 [facility] Comment on above: Performed By: #### E KARIN MARMOLEJO #### [facility] [address] [address] [address] Brianda Renee FREE T3on 02-11-2022 FREE T3 2.42 pg/mlL Normal 2.18-3.98 [facility] Comment on above: Performed By: #### P SASC #### [facility] [address] [place] [address] Dr. Brianda Renee GLYCOHEMOGLOBIN A1Con 2021 ADA RECOMMENDATION SEE BELOW Normal [facility] Comment on above: Result Comment: ADA RECOMMENDED LIMIT 4.0 - 6.0 ADA THERAPEUTIC TARGET < 7.0 ACTION SUGGESTED > 7.0 Performed By: #### C MP #### [facility] [address] [place] [address] Dr. Brianda Renee Glucose [Mass/Vol] 146 mg/dL Normal [facility] Comment on above: Performed By: #### C MP #### [facility] [address] [place] [address] Dr. Brianda Renee HbA1c (Bld) [Mass fraction] 6.7 % Critically high 4.5-6.2 [facility] Comment on above: Performed By: #### C MP #### [facility] [address] [place] [address] Dr. Brianda Renee LIPID PROFILEon 02-11-2022 CHOL-HDL RATIO NORM SEE BELOW Normal [facility] Comment on above: Result Comment: 3.3 - 4.4 LOW RISK 4.4 - 7.1 AVERAGE RISK 7.1 - 11.0 MODERATE RISK >11.0 HIGH RISK Performed By: #### P SASC #### [facility] [address] [place] [address] Dr. Brianda Renee Cholesterol [Mass/Vol] 135 mg/dL Normal <=200 [facility] Comment on above: Performed By: #### P SASC #### [facility] [address] [address] [address] Brianda Renee Cholesterol in HDL [Mass/Vol] 52 mg/dL Normal 40-60 [facility] Comment on above: Performed By: #### P SASC #### [facility] [address] [address] [address] Brianda Renee Cholesterol in LDL [Mass/Vol] 66.4 mg/dL Normal [facility] Comment on above: Performed By: #### P SASC #### [facility] [address] [address] [address] Brianda Renee Cholesterol.total/Ch olesterol in HDL [Mass ratio] 2.6 {ratio} Normal [facility] Comment on above: Performed By: #### P SASC #### [facility] [address] [place] [address] Dr. Brianda Renee HDL NORMAL > or = 60 mg/dl - LO W CARDIOVASCULAR RISK <40 mg/dl - HIGH CARDIOVASCULAR RISK Normal [facility] Comment on above: Performed By: #### P SASC #### [facility] [address] [place] [address] Dr. Brianda Renee LDL CALC NORMAL SEE BELOW Normal [facility] Comment on above: Result Comment: <100 mg/dl OPTIMAL 100 - 129 mg/dl NEAR OR ABOVE OPTIMAL 130 - 159 mg/dl BORDERLINE HIGH 160 - 189 mg/dl HIGH >190 mg/dl VERY HIGH Performed By: #### P SASC #### [facility] [address] [address] [address] Brianda Reene Triglyceride [Mass/Vol] 83 mg/dL Normal <=150 [facility] Comment on above: Performed By: #### P SASC #### [facility] [address] [address] [address] Brianda Renee VLDL CALC 16.6 mg/dL Normal [facility] Comment on above: Performed By: #### P SASC #### [facility] [address] [place] [address] Dr. Brianda Renee OCC BLD IMMUNO SCREENon 01-22 OCCULT BLOOD Negative Normal NEGATIVE [facility] Comment on above: Performed By: #### O BSCRN #### [facility] [address] [address] [address] Brianda Renee PROF 14(COMP METB)on 022 Albumin [Mass/Vol] 3.8 g/dL Normal 3.4-5.0 [facility] Comment on above: Performed By: #### P SASC #### [facility] [address] [address] [address] Brianda Renee Albumin/Globulin [Mass ratio] 1.0 {ratio} Normal [facility] Comment on above: Performed By: #### P SASC #### [facility] [address] [address] [address] Brianda Renee ALP [Catalytic activity/Vol] 64 U/L Normal 46-116 [facility] Comment on above: Performed By: #### P SASC #### [facility] [address] [address] [address] Brianda Renee ALT [Catalytic activity/Vol] 38 U/L Normal 16-63 [facility] Comment on above: Performed By: #### P SASC #### [facility] [address] [address] [address] Brianda Renee Anion gap [Moles/Vol] 13.0 mmol/L Normal [facility] Comment on above: Performed By: #### P SASC #### [facility] [address] [address] [address] Brianda Renee AST [Catalytic activity/Vol] 23 U/L Normal 15-37 [facility] Comment on above: Performed By: #### P SASC #### [facility] [address] [address] [address] Brianda Renee Bilirubin [Mass/Vol] 0.5 mg/dL Normal 0.2-1.0 [facility] Comment on above: Performed By: #### P SASC #### [facility] [address] [place] [address] Dr. Brianda Renee Calcium [Mass/Vol] 9.4 mg/dL Normal 8.5-10.1 [facility] Comment on above: Performed By: #### P SASC #### [facility] [address] [address] [address] Brianda Renee Chloride [Moles/Vol] 99 mmol/L Normal 98-107 [facility] Comment on above: Performed By: #### P SASC #### [facility] [address] [address] [address] Brianda Renee CO2 [Moles/Vol] 30.1 mmol/L Normal 21.0-32.0 [facility] Comment on above: Performed By: #### P SASC #### [facility] [address] [address] [address] Brianda Renee Creatinine [Mass/Vol] 1.13 mg/dL Normal 0.70-1.30 [facility] Comment on above: Performed By: #### P SASC #### [facility] [address] [address] [address] Brianda Renee EGFR-AF INDIAN >60 Normal >=60 [facility] Comment on above: Performed By: #### P SASC #### [facility] [address] [address] [address] Brianda Renee EGFR-NON AF INDIAN >60 Normal >=60 [facility] Comment on above: Performed By: #### P SASC #### [facility] [address] [address] [address] Brianda Renee Globulin (S) [Mass/Vol] 3.9 g/dL Normal [facility] Comment on above: Performed By: #### P SASC #### [facility] [address] [address] [address] Brianda Renee Glucose [Mass/Vol] 139 mg/dL Critically high 74-106 [facility] Comment on above: Performed By: #### P SASC #### [facility] [address] [address] [address] Brianda Renee Potassium [Moles/Vol] 4.1 mmol/L Normal 3.5-5.1 [facility] Comment on above: Performed By: #### P SASC #### [facility] [address] [address] [address] Brianda Renee Protein [Mass/Vol] 7.7 g/dL Normal 6.4-8.2 [facility] Comment on above: Performed By: #### P SASC #### [facility] [address] [address] [address] Brianda Renee Sodium [Moles/Vol] 138 mmol/L Normal 136-145 [facility] Comment on above: Performed By: #### P SASC #### [facility] [address] [address] [address] Brianda Renee Urea nitrogen [Mass/Vol] 20.0 mg/dL Critically high 7.0-18.0 [facility] Comment on above: Performed By: #### P SASC #### [facility] [address] [address] [address] Brianda Renee Urea nitrogen/Creatinine [Mass ratio] 17.7 mg/mg Normal [facility] Comment on above: Performed By: #### P SASC #### [facility] [address] [address] [address] Brianda Renee T4on 02-11-2022 T4 [Mass/Vol] 12.60 ug/dL Critically high 4.50-12.10 [facility] Comment on above: Performed By: #### P SASC #### [facility] [address] [address] [address] Brianda Renee TSHon 02-11-2022 TSH 1.198 uIU/mL Normal 0.358-3.740 [facility] Comment on above: Performed By: #### P SASC #### [facility] [address] [address] [address] Brianda Renee Cardiovascular Lab Reporton 06-05-2020 Cardiovascular Lab Report [facility] Patient Name: Caridad [facility] MR #: [id number] Physician: Benedicto Main, Department of M.D. Medicine Service Date: 06/04/2020 Division of Birthdate: 1965 Cardiology Room #: [id number] Adult Cardiovascular Services [address] [place], [place] [address] Cardiovascular Laboratory Report FINAL IMPRESSIONS: 1. Hazy, stenotic segment in a previously treated right superficial femoral artery successfully treated by Zilver bare metal stent placement. 2. Severe stenosis of the right popliteal artery successfully treated by balloon angioplasty. 3. Three vessel run off below the right knee. RECOMMENDATIONS: 1. Close clinical and laboratory monitoring for development of postprocedural complications. 2. Basic metabolic panel will be checked in 48 to 72 hours given the amount of contrast used. 3. Aspirin 81 mg lifelong. 4. Plavix 75 mg daily for a minimum of 1 month or 6 months after the last coronary stent. 5. Optimization of medical management; aspirin, high-intensity statin therapy, beta komal, and +/- an angiotensin converting enzyme inhibitor are indicated. 6. Arterial Dopplers will be obtained in the morning to establish a new postprocedural baseline. 7. Follow up with Dr. Main in the [facility] as scheduled. 8. Follow up with Dr. Burns as scheduled. PROCEDURES: Ultrasound-guided access to the left common femoral artery, catheter placement in the abdominal aorta, and right lower extremity angiography, balloon angioplasty of the popliteal artery, bare metal stent placement of the right superficial femoral artery, placement of a 6-Polish MynxGrip closure device. METHODS: After risks, benefits, and alternatives were explained, written informed consent was obtained. The patient was prepped and draped in usual sterile fashion over the left and right groins. Using 1% lidocaine solution, local infiltration anesthesia was achieved. Using modified Seldinger technique, a micropuncture kit under ultrasound guidance access to the left common femoral artery was obtained. A 5-Polish x 11 cm sheath was inserted without difficulty. A 5-Polish Uni-Flush catheter was advanced into the abdominal aorta. The aortic bifurcation was crossed using the Uni-Flush and a soft angled Glidewire. Angiography of the right lower extremity was performed. A 5-Polish sheath was exchanged out for a 6-Polish crossover Greg sheath. A V18 control wire was used to traverse the stenosis and positioned in the tibial vessels. Balloon angioplasty of the popliteal artery was performed sequentially using a 5 x 20 and a 6 x 40 balloon. Repeat imaging showed a satisfactory result. A hazy segment in the previously treated superficial femoral artery with presumed dissection flap was treated using placement of a 7 x 40 Zilver bare metal stent. Postdilation was performed using a 6 x 40 balloon. Repeat imaging showed an optimal result. The wire was removed. Final images showed excellent flow with no evidence of dissection over thrombus or dye extravasation. There is somewhat sluggish flow in the distal superficial femoral and proximal popliteal artery. There is a three-vessel runoff below the knee. Postprocedurally distal pulses are unchanged. FINDINGS: Hemodynamics. AO 111/65. ANGIOGRAPHY: Right lower extremity angiography: Superficial femoral artery. This shows a long segment of previously treated vessel with luminal irregularities and no high-grade stenosis. In the proximal portion of the vessel there is significantly sluggish flow, haziness and a suggestion of a dissection flap. This area was treated using a 7 x 40 Zilver bare metal stent with postdilation as described above. Final images show excellent flow with no evidence of dissection thrombus or distal wire trauma. Profunda femoral artery: This is widely patent. Popliteal artery: Baseline imaging shows an 80% stenosis in the P3 segment of the artery which was reduced to 20% to 30% by balloon angioplasty. Final images show no evidence of dissection thrombus or distal wire trauma. Below-knee vessels: There are three-vessel runoff with moderate stenosis at the ostium of the posterior tibial artery. INDICATIONS: The patient is a 54-year-old man, who presented with lifestyle limiting claudication. He underwent revascularization of the right lower extremity earlier today using a drug coated balloon. Postprocedurally, Dopplers suggested possible thrombus in the popliteal artery and confirmed a high-grade popliteal stenosis. He returned for repeat angiography. Findings and management strategy are outlined above. Electronically Signed by: Benedicto Main M.D. 06/06/2020 09:58 A Benedicto Main M.D. Date Dict: 06/04/2020/03:55 P/Benedicto Main M.D. Date Trans: 06/05/2020 05:44 A/tian [id number] cc: Tuyet Hoy, M.D. [address] [place] [address] Normal [facility] Cardiovascular Lab Reporton 06-04-2020 Cardiovascular Lab Report [facility] Patient Name: Yogi Mclean [facility] MR #: [id number] Physician: Benedicto Main, Department of M.D. Medicine Service Date: 06/04/2020 Division of Birthdate: 1965 Cardiology Room #: Adult Cardiovascular Services [address] [place] [address] Cardiovascular Laboratory Report FINAL IMPRESSIONS: 1. Severe stenoses of the right superficial femoral artery, successfully treated by balloon angioplasty and IN.PACT Admiral drug-coated balloon (DCB) angioplasty. 2. Severe focal stenosis of the right popliteal artery. 3. Three-vessel runoff on the right side with stenosis of the posterior tibial artery. RECOMMENDATIONS: 1. Aspirin 81 mg lifelong. 2. Plavix 75 mg daily for a minimum of a month. 3. Aggressive cardiovascular risk factor modification. 4. The patient will undergo arterial Dopplers to establish a baseline postprocedurely. 5. Should he remain symptomatic, elective revascularization of the right popliteal artery will be considered. 6. Follow up with Dr. Main in the [facility]. 7. Follow up with Dr. Burns as scheduled. PROCEDURES: Catheter placement in the abdominal aorta. Right lower extremity angiography, balloon angioplasty of the right superficial femoral artery, drug coated balloon angioplasty of the right superficial femoral artery, placement of a 6-Polish MynxGrip closure device in the left common femoral artery. METHODS: After risks, benefits, and alternatives were explained, written informed consent was obtained. The patient was prepped and draped in the usual sterile fashion over both groins. Using 1% lidocaine solution, local infiltration anesthesia was achieved. Using modified Seldinger technique and under ultrasound guidance, access of the left common femoral artery was obtained. Angiography via the inner cannula of the micropuncture kit was performed. This was exchanged out for a 5-Polish sheath. A 5-Polish Omniflush catheter was advanced in and positioned in the abdominal aorta. The aortic bifurcation was crossed using a combination of the 5-Polish Omniflush and a soft angled Glidewire. The Omniflush was positioned over the contralateral femoral head. Angiography of the right lower extremity was performed. At this point, it was elected to proceed with an interventional procedure. The 5-Polish sheath was exchanged out for a 6-Polish crossover Greg sheath. Magic torque wire was used to traverse the stenoses in the right superficial femoral artery. Balloon angioplasty was performed initially over the most severe stenotic segments using a 5 x 40 mm sports activities foul judge balloon. An inadequate result was treated using a 6 x 250 intact admiral drug-coated balloon. Repeat imaging showed an optimal result. The wire was removed. Final angiography showed excellent flow short segment of dissection flaps that were non-flow limiting. No evidence of dye extravasation or thrombosis. Angiography of the right below-knee vessels was performed using digital subtraction. At this point, it was elected to conclude the procedure. The Greg sheath was retracted into the abdominal aorta and exchanged out for a 6-Polish short sheath. A 6-Polish MynxGrip closure device was deployed per protocol achieving optimal hemostasis. Overall, the patient tolerated the procedure well. There were no overt complications. He was to be transferred to the holding area in stable condition. FINDINGS: Hemodynamics. AO 105/85. Right Lower Extremity Angiography: Common femoral artery: This shows mild plaque. Profunda femoral artery: This is patent. Superficial femoral artery: This shows multiple 50-80% stenoses in the proximal mid and distal portion of the vessel. There is diffuse plaque and luminal irregularities. The stenoses were reduced to 0% by balloon angioplasty and drug coated balloon angioplasty. Final images show no evidence of dye extravasation, vessel trauma, or thrombosis. Popliteal artery: This shows a discrete 70% stenosis in the P3 segment of the vessel. Below knee vessels: There is a 3-vessel run off. There is a 50% to 60% stenosis at the ostium of the posterior tibial artery. Limited left femoral angiography: shows mild plaque and anatomy suitable for closure device. The previously placed stent appears to be widely patent. INDICATIONS: Lifestyle limiting claudication. Electronically Signed by: Benedicto Main M.D. 06/04/2020 02:15 P Benedicto Main M.D. Date Dict: 06/04/2020/09:29 Evita/Benedicto Main M.D. Date Trans: 06/04/2020 09:59 Evita/tian [id number] cc: Tuyet Burns M.D. [address] [facility] [place] [address] Normal [facility] Cardiovascular Lab Reporton 05-13-2020 Cardiovascular Lab Report [facility] Patient Name: Yogi Mclean [facility] MR #: [id number] Physician: Benedicto Main, Department of M.D. Medicine Service Date: 05/13/2020 Division of Birthdate: 1965 Cardiology Room #: CC [facility] Cardiovascular Services [address] [place] [address] Cardiovascular Laboratory Report FINAL IMPRESSIONS: Aborted attempts at right common femoral artery antegrade access; inability to advance the sheath with subsequent bleeding. RECOMMENDATIONS: 1. Manual pressure will be held to obtain optimal hemostasis. 2. The patient will be closely monitored to assure absence of significant blood loss. 3. He will be scheduled in the next 2 to 3 weeks to return for a repeat attempt at elective revascularization of the right lower extremity. 4. Follow up with Dr. Main as scheduled. PROCEDURES: Ultrasound and fluoroscopic guided access to the right common femoral artery. Antegrade approach, inability to advance the sheath. METHODS: After risks, benefits, and alternatives were explained, written informed consent was obtained. The patient was prepped and draped in usual sterile fashion over both groins. Using 1% lidocaine solution, local infiltration anesthesia was achieved over the right groin. Using ultrasound and fluoroscopic guidance access to the right common femoral artery was obtained in an antegrade fashion. Fluoroscopic assurance of appropriate micropuncture kit positioning and wire position was obtained. A 5-Polish dilator was advanced without difficulty. Inability to advance the short 6-Polish sheath was encountered. The sheath was inadvertently displaced; manual pressure was held for hemostasis. At this point, it was elected to abort the procedure given the high risk of bleed if the patient were to be heparinized. Overall, the patient tolerated the procedure well. There were no overt complications. He was to be transferred to the holding area in stable condition. INDICATIONS: Lifestyle limiting claudication, known peripheral arterial disease. Electronically Signed by: Benedicto Main M.D. 05/13/2020 02:39 P Benedicto Main M.D. Date Dict: 05/13/2020/09:02 Evita/Benedicto Main M.D. Date Trans: 05/13/2020 09:13 Evita/tian [id number] cc: Tuyet Burns M.D. [address] [facility] [place] [facility] [address] [place] [facility] Cardiovascular Lab Reporton 04-12-2020 Cardiovascular Lab Report [facility] Patient Name: Caridad [facility] MR #: [id number] Physician: Benedicto Main, Department of M.D. Medicine Service Date: 04/11/2020 Division of Birthdate: 1965 Cardiology Room #: [id number] Adult Cardiovascular Services [place] [address] Cardiovascular Laboratory Report FINAL IMPRESSIONS: 1. 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 2. Severe disease of the right internal iliac artery. 3. Moderate to severe disease of the right superficial femoral and popliteal arteries. 4. Three-vessel runoff bilaterally. 5. Severe disease of the right renal artery. RECOMMENDATIONS: 1. Arterial Dopplers and ankle-brachial indices to establish post stent baselines. 2. Aggressive cardiovascular risk factor modification. 3. Optimization medical management; continue aspirin and Plavix, high-intensity statin therapy, beta komal, +/- an angiotensin-convertin g enzyme inhibitor are indicated. 4. He will return for elective revascularization of the right lower extremity in 4-6 weeks or sooner should symptoms worsen. 5. Follow up with Dr. Main as scheduled. 6. Follow up with his family physician as scheduled. PROCEDURES: Ultrasound-guided access to the right common femoral artery, bilateral lower extremity angiography, catheter placement in the abdominal aorta, abdominal aortography, catheter placement in the left external iliac artery, percutaneous balloon angioplasty and stent placement in the left superficial femoral artery, placement of a 6-Polish MynxGrip closure device over the right common femoral artery. METHODS: After risks, benefits, and alternatives were explained, written informed consent was obtained. The patient was prepped and draped in the usual sterile fashion over both groins. Using 1% lidocaine solution, local infiltration anesthesia was achieved. Using a modified Seldinger technique, and a micropuncture kit and under ultrasound guidance, access of the right common femoral artery was obtained. Angiography via the inner cannula of the sheath revealed a high position. Therefore the cannula was removed and manual pressure was held. Access was again obtained under ultrasound guidance. Angiography of the right common femoral artery was performed via the 5-Polish sheath. Angiography of the right lower extremity was performed by hand injection through the side arm of the sheath. During angiography, the 5-Polish sheath was inadvertently dislodged; hemostasis was held over the right common femoral artery. After appropriate hemostasis, access to the right common femoral artery was obtained using the micropuncture kit. A 5-Polish sheath was introduced. A 5-Polish Uniflush catheter was advanced and positioned in the abdominal aorta. Abdominal aortography was performed. Prior to this, angiography of the right iliac system was performed. The aortic bifurcation was crossed using the combination of the 5-Polish Uniflush and a soft angled Glidewire. The Uniflush was positioned at the level of the left femoral head. Angiography of the left lower extremity was performed. 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 At this juncture, it was elected to proceed with an interventional procedure. A 5-Polish sheath was exchanged out for a 6-Polish Greg sheath over an Amplatz Super Stiff wire. The occlusion in the superficial femoral was crossed using a combination of a NaviCross microcatheter and a V-18 control wire. The V-18 control was removed and confirmation of intraluminal positioning was performed through the NaviCross catheter. A Magic torque wire was advanced in and positioned distally. Balloon angioplasty was performed along the length of the occlusion sequentially using a 5 x 200, and a 6 x 100 balloon. An inadequate result was treated from distal to proximal with a 7 x 140, and a 7 x 80 Zilver PTX stent as well as a 7 x 40 Zilver bare-metal stent proximally. Attention was paid to assure overlap of stent margins. Postdilation was performed using the 6 x 100 mm balloon. The balloon was removed. Final images showed excellent flow, no evidence of extravasation, vessel trauma or thrombosis. The Greg sheath was retracted to the level of the left common iliac artery. Angiography of the left iliac system was performed. The Greg sheath was exchanged out for a 6-Polish sheath. A 6-Polish MynxGrip closure device was deployed per protocol achieving optimal hemostasis. Manual pressure was held for additional hemostasis. Overall, the patient tolerated the procedure well. There were no overt complications. He was to be transferred to the holding area in stable condition. Note at the completion of the case, distal pulses were palpable and Doppler palpable and unchanged. FINDINGS: Hemodynamics. AO 154/94. ANGIOGRAPHY: Abdominal aortography: this shows single renal arteries bilaterally. There is a 50% to 60% stenosis in the proximal portion of the right renal artery with a sluggish nephrogram. There is a brisk nephrogram on the left. The infrarenal abdominal aorta shows mild plaque and calcification with no significant stenosis or aneurysmal segments. Right lower extremity: Common iliac: this shows a 30% ostial stenosis. External iliac: this shows a 40% stenosis. Internal iliac: this shows an 80% ostial stenosis. Common femoral: this shows mild plaque and calcification. Profunda femoral: this shows a 30% ostial stenosis. Superficial femoral artery: this shows 60% and 50% stenosis in the midportion of the vessel. Popliteal artery: this shows a 60% to 70% distal stenosis in the P3 segment. Below-knee vessels: there is a three-vessel runoff with mild plaque in the posterior tibial peroneal and anterior tibial vessels. The posterior tibial shows a discrete 50% stenosis. Left lower extremity: Common iliac: this shows a 30% stenosis and plaque. There is a 40% stenosis in the distal portion of the common iliac artery. External iliac artery: this shows mild plaque. Internal iliac artery: this shows mild plaque. Common femoral artery: this shows plaque and calcification. Profunda femoral: this is patent and shows dense collateralization to the superficial femoral artery. Superficial femoral artery: baseline imaging shows a long segment occlusion. This was crossed, recanalized and reduced to 0% by balloon angioplasty, placement of overlapping 7 x 40 Zilver bare-stent proximally, and 7 x 80 and 7 x 140 Zilver PTX stents in the mid and distal portion. Attention was paid to assure overlap of stent margins. Postdilation was performed using a 6 x 100 balloon. Popliteal artery: this shows mild plaque. Below-knee vessels: there is a three-vessel runoff with no significant stenosis. INDICATIONS: Lifestyle limiting claudication. Electronically Signed by: Benedicto Main M.D. 04/18/2020 11:40 A Benedicto Main M.D. Date Dict: 04/11/2020/04:38 P/Benedicto Main M.D. Date Trans: 04/12/2020 12:49 A/tian [id number] cc: Tuyet Burns M.D. [address] [facility] [address] Normal [facility] POC GLUCOSE LABon 04-11-2020 Glucose [Mass/Vol] 198 mg/dL High 70-100 [facility] Comment on above: Performed By: #### [id number] #### [facility] [address] [facility]. [address] *SARS-CoV-2 COVID-19on 04-09 [id number] Not Detected Normal Not Detected [facility] Comment on above: Order Comment: The A ptima SARS-CoV-2 assay is a nucleic acid amplification test intended for the qualitative detection of RNA from SARS-CoV-2 isolated and purified from nasopharyngeal (TICKET COLLECTOR OR USHER),oropharyngeal (OP), nasal swab, sputum, and bronchoalveolar lavage (BAL) specimens from patients with signs and symptoms of infection who are suspected of COVID-19. Results are for the identification of SARS-CoV-2 RNA. The SARS-CoV-2 RNA is generally detectable during the acute phase of infection. The Aptima SARS-CoV-2 Assay on the [employer] system is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
[2025-04-03 14:45] LABS: Hematocrit 38.8 % (42.0-54.0); Hemoglobin 12.3 g/dL (14.0-18.0); Immature Granulocytes Abs Auto 0.01 10^3/uL (0.00-0.03); Immature Granulocytes Pct Auto 0.2 % (0.0-0.5); Lymphocytes Absolute Auto 2.3 10^3/uL (1.2-3.8); Mean Corpuscular HGB Conc 31.7 g/dL (29.9-35.2); Mean Corpuscular Hemoglobin 23.7 pg (25.9-34.0); Mean Corpuscular Volume 74.9 fL (80.0-94.0); Platelet Count 191 10^3/uL (150-450); Red Blood Count 5.18 10^6/uL (4.70-6.10); White Blood Count 6.2 10^3/uL (4.0-11.0)
[2025-04-03 15:33] LABS: Anion Gap 8.9; Blood Urea Nitrogen 22.0 mg/dL (7.0-18.0); Calcium 9.3 mg/dL (8.5-10.1); Carbon Dioxide 31.4 mmol/L (21.0-32.0); Chloride 100 mmol/L (98-107); Estimated GFR (African America >60 (>=60 mL/min/1.73m^2); Estimated GFR (Non-African Ame >60 (>=60 mL/min/1.73m^2); Glucose 94 mg/dL (74-106); Potassium 4.3 mmol/L (3.5-5.1); Sodium 136 mmol/L (136-145)
== END 2025-04-03 14:20 | disposition home or self-care (01) ==
LOC: LAB 14:21
PROVIDERS: PCP Family Medicine; Visit Provider Internal Medicine Interventional Cardiology
DX: R94.39 Abnormal result of other cardiovascular function study (principal)
CPT/HCPCS: 36415; 80048; 85025

== ENCOUNTER 2025-04-12 18:36 | Emergency (ER) | payer OTHER, SELFPAY ==
[2025-04-12 18:44] VITALS: BP 135/83; PULSE 67; TEMP 36.7; O2SAT 97; BMI 29.2
--- OUTSIDE RECORDS SUMMARY | 2025-04-12 18:45 | XMS_ITS | CCD ---
Author Organization [facility] Care Team Providers Care Glazing Superintendent Name Role Phone ELTAHAWY, EHAB A Admitting [...] Care Unavailable KATELYNN ., JENNIFER Consulting Unavailable IVIS ., DR BENZ Primary Care Unavailable KATELYNN ., JENNIFER Admitting Unavailable RICARDO WAGNER Consulting Unavailable KATELYNN ., JENNIFER Attending Unavailable KATELYNN ., JENNIFER Consulting Unavailable MARY EDWARD Consulting Unavailable TRUDI LAGOS Consulting Unavailable JOE, DR DAVID Martínez Attending Unavailbishop DIAZ, DR DAVID Martínez Admitting Unavailbishop e STEVE .ANKUSH Consulting Unavailable IVIS ., DR BENZ Primary Care Unavailable PAULIE NEWMAN Consulting Unavailable IVIS ., DR BENZ Primary Care Unavailable NILL ., DR HERNANDEZ Consulting Unavailable NILL ., DR HERNANDEZ Attending Unavailable NILL ., DR HERNANDEZ Admitting Unavailable NANI II, GIL Consulting Unavailable ALONDRA VALENTE Consulting Unavailable IVIS ., DR BENZ Attending Unavailable HOY ., DR BENZ Admitting Unavailable HOY ., DR BENZ Primary Care Unavailable IVIS ., DR BENZ Consulting Unavailable TAYLOR .DR INÉS Consulting Unavailable WM, DR TRUDI Hector Consulting Unavailable YAJAIRA, DR ROSEY Gregg Consulting Unavailable LINCOLN RADER Consulting Unavailable SARA HERNANDEZ Consulting Unavailable ANN MARIE ALVARADO Consulting Unavailable KATELYNN ., JENNIFER Attending Unavailable [...] Consulting Unavailable MISC, DOCTOR Attending Unavailable MISC, DR ABDALLA Admitting Unavailable HOY ., DR BENZ Consulting [...] NILL, Mary R Attending Unavailable ELTAHAWY, EHAB Referring Unavailable ELTAHAWY, EHAB Attending Unavailable ELTAHAWY, EHAB Admitting Unavailable ELTAHAWY, EHAB Attending Unavailable Problems Active [...] disease (6 sources) Atherosclerotic heart disease of [place] coronary artery without angina pectoris; Translations: [Old [...] Onset: 3 Chronic Other aftercare (1 source) computer terminal operator (current) use of aspirin; Translations: [HALFWAY CURRENT USE OF ASPIRIN] Onset: 3 Episodic Other aftercare (1 source) computer terminal operator (current) use of oral hypoglycemic drugs; Translations: [RETINA SUBSPECIALIST USE ORAL HYPOGLYCEMIC DX] Onset: 3 Episodic Other aftercare (1 source) Other termite treater (current) drug therapy; Translations: [OTH HALFWAY CURRENT DRUG THERAPY] Onset: 3 Episodic Other aftercare (1 source) senior living (current) use of antithrombotics/antiplate lets; Translations: [HALFWAY ANTITHROMBOT/ANTIPLATLETS ] Onset: 3 Episodic Other circulatory [...] conditions (not mental disorders or infectious disease) (7 sources) Encounter for screening for malignant neoplasm [...] Results Test Name Value Interpretation Reference Range [facility] 04-10-2025 [facility] - Attestation signed by Benedicto Melo MD at 04/10/2025 9:55 AM Benedicto Melo MD, MPH, [facility], [facility], [facility] Interventional Cardiology Pager Email: [email or web address] Patient: Yogi Mclean Pre-sedation Evaluation: Moderate sedation History of Present Illness: Yogi Mclean is a 59 y.o. year old male patient non-obstructive CAD on angiography (10/2017), PAD s/p SFA stents in 2019, type 2 diabetes mellitus, CVA, substance abuse, and tobacco dependence here for coronary angiography following abnormal stress test. Stress test done in February 2025 showed small area of mild inferolateral ischemia. Medical History[1] Principle problems: Patient Active Problem List Diagnosis Date Noted BMI 26.0-26.9,adult 05/03/2023 CAD (coronary artery disease) 05/03/2023 Cardiomyopathy ([facility]) 05/03/2023 Chronic low back pain 05/03/2023 Chronic pharyngitis 05/03/2023 Diabetes ([facility]) 05/03/2023 Dysplastic nevus of trunk 05/03/2023 Erectile dysfunction 05/03/2023 Heroin abuse ([facility]) 05/03/2023 Laryngopharyngeal reflux 05/03/2023 Lumbar radiculopathy 05/03/2023 Lung mass 05/03/2023 LVH (left ventricular hypertrophy) 05/03/2023 Malignant melanoma of skin of trunk ([facility]) 05/03/2023 Screening for malignant neoplasm of colon 05/03/2023 Tachycardia 05/03/2023 Umbilical hernia 05/03/2023 Fall, initial encounter 06/26/2022 Fall at home, initial encounter 06/25/2022 Bowel and bladder incontinence 06/25/2022 Controlled type 2 diabetes mellitus without complication, without long-term current use of insulin ([facility]) 06/25/2022 Peripheral vascular disease 06/25/2022 SHERON (acute kidney injury) 06/25/2022 Leukocytosis 06/25/2022 Jaundice 06/25/2022 Chest pain 04/07/2018 Anxiety 01/28/2018 GERD (gastroesophageal reflux disease) 01/28/2018 Hyperlipidemia 01/28/2018 Hypothyroidism 01/28/2018 Idiopathic insomnia 01/28/2018 Stroke, embolic ([facility]) 01/28/2018 Dyspnea 01/28/2018 Elevated glucose 01/28/2018 Fatigue 01/28/2018 Essential hypertension 05/09/2016 Facial droop due to stroke 05/09/2016 Right hemiparesis ([facility]) 05/09/2016 Tobacco abuse 05/09/2016 TIA (transient ischemic attack) 05/09/2016 Tissue plasminogen activator (tPA) administered at other facility within 24 hours before current admission 05/09/2016 Abnormal stress test 03/15/2025 Allergies: Allergies[2] CONSULTING PSYCHIATRIST/Current Medications: Prescriptions Prior to Admission[3] Current Medications[4] Past Surgical History: has a past surgical history that includes Leg Surgery; Colonoscopy; Umbilical hernia repair; and Cardiac catheterization. Recent sedation/surgery (24 hours) No Review of Systems: Please check all that apply: Peripheral arterial disease NPO guidelines met: Yes Physical Exam Airway Mallampati: III Cardiovascular Rhythm: regular Rate: normal (-) murmur, peripheral edema Dental Pulmonary (+) rhonchi, wheezes (-) decreased breath sounds Plan ASA 3 Moderate Consent for blood products obtained. Risks, benefits, and alternatives to procedure discussed with patient in detail who expressed understanding and agreed to proceed. Blayne Jiménez PGY-4 Compensation Advisor [facility] [1] Past Medical History: Diagnosis Date Anxiety 01/28/2018 Controlled type 2 diabetes mellitus without complication, without long-term current use of insulin ([facility]) 06/25/2022 Coronary artery disease Essential hypertension 05/09/2016 Facial droop due to stroke 05/09/2016 GERD (gastroesophageal reflux disease) 01/28/2018 Hyperlipidemia 01/28/2018 Hypothyroidism 01/28/2018 Idiopathic insomnia 01/28/2018 Peripheral vascular disease 06/25/2022 Right hemiparesis ([facility]) 05/09/2016 Smoker 05/09/2016 Stroke, embolic ([facility]) 01/28/2018 Transferred from [facility] with right hemiparesis, facial droop and double vision. A CT of the brain revealed no acute process so IV t-PA given for NIH stroke score of 6. He was transferred to [facility]. A MRI of the brain revealed an acute left pontine infarction and chronic ischemic changes. A CTA of the TIA (transient ischemic attack) 05/09/2016 [2] No Known Allergies [3] Medications Prior to Admission Medication Sig Dispense Refill Last Dose/Taking aspirin 81 mg EC tablet Take 1 tablet (81 mg) by mouth once daily as directed. 90 tablet 3 04/10/2025 Morning atorvastatin (Lipitor) 80 mg tablet TAKE 1 TABLET BY MOUTH EVERY DAY DIRECTED 90 tablet 3 04/10/2025 Morning carvedilol (Coreg) 25 mg tablet Take 1 tablet by mouth in the morning and at bedtime. 04/10/2025 Morning clopidogrel (Plavix) 75 mg tablet Take 1 tablet by m (more content not included)... [facility] HPon 04-10-2025 - Attestation signed by Benedicto Melo MD at 04/10/2025 9:55 AM Benedicto Melo MD, MPH, [facility], [facility], [facility] Interventional Cardiology Pager Email: [email or web address] History Of Present Illness Yogi Mclean is a 59 y.o. year old male patient non-obstructive CAD on angiography (10/2017), PAD s/p SFA stents in 2019, type 2 diabetes mellitus, CVA, substance abuse, and tobacco dependence here for coronary angiography following abnormal stress test. Stress test done in February 2025 showed small area of mild inferolateral ischemia. Past Medical History Medical History[1] Surgical History Surgical History[2] Social History Social History Socioeconomic History Marital status: Spouse name: Not on file Number of children: Not on file Years of education: Not on file Highest education level: Not on file Occupational History Not on file Tobacco Use Smoking status: Every Day Current packs/day: 1.00 Average packs/day: 1 pack/day for 15.0 years (15.0 ttl pk-yrs) Types: Cigarettes Smokeless tobacco: Never Vaping Use Vaping status: Never Used Substance and Sexual Activity Alcohol use: Yes Comment: occasional Drug use: Never Sexual activity: Defer Other Topics Concern Not on file Social History Narrative Not on file Social Drivers of Health Financial Resource Strain: Not on file Food Insecurity: No Food Insecurity (06/25/2022) Hunger Vital Sign Worried About Running Out of Food in the Last Year: Never true Ran Out of Food in the Last Year: Never true Transportation Needs: No Transportation Needs (06/25/2022) PRAPARE - Transportation Lack of Transportation (Medical): No Lack of Transportation (Non-Medical): No Physical Activity: Not on file Stress: Not on file Social Connections: Not on file Intimate Partner Violence: Unknown (10/14/2023) [place] Safety & Environment Fear of Current or Ex-Partner: Not on file Emotionally Abused: Not on file Physically Abused: Not on file Sexually Abused: Not on file Physically or Sexually Abused: Not on file Housing Stability: Unknown (06/25/2022) Housing Stability Vital Sign Unable to Pay for Housing in the Last Year: No Number of Places Lived in the Last Year: Not on file Unstable Housing in the Last Year: No Family History Family History[3] Allergies Allergies[4] Medications Prescriptions Prior to Admission[5] Review of Systems Constitutional: Negative for chills and fever. Respiratory: Negative for chest tightness and shortness of breath. Gastrointestinal: Negative for abdominal pain, nausea and vomiting. Genitourinary: Negative for difficulty urinating and dysuria. Neurological: Negative for dizziness and light-headedness. Last Recorded Vitals Visit Vitals Smoking Status Every Day Physical Exam Constitutional: General: He is not in acute distress. Appearance: Normal appearance. HENT: Right Ear: External ear normal. Left Ear: External ear normal. Nose: Nose normal. Eyes: Extraocular Movements: Extraocular movements intact. Cardiovascular: Rate and Rhythm: Normal rate and regular rhythm. Heart sounds: Normal heart sounds. Pulmonary: Breath sounds: Wheezing and rhonchi present. No rales. Abdominal: General: There is no distension. Palpations: Abdomen is soft. Tenderness: There is no abdominal tenderness. Musculoskeletal: Right lower leg: No edema. Left lower leg: No edema. Neurological: Mental Status: He is alert and oriented to person, place, and time. Psychiatric: Mood and Affect: Mood normal. Behavior: Behavior normal. Relevant Lab Results Lab Results Component Value Date NA 137 06/27/2022 K 4.4 06/27/2022 CL 105 06/27/2022 CO2 27 06/27/2022 BUN 29 (H) 06/27/2022 CREATININE 0.94 06/27/2022 GLUCOSE 119 (H) 06/27/2022 CALCIUM 8.4 (L) 06/27/2022 ANIONGAP 5 (L) 06/27/2022 EGFR 90.3 06/27/2022 BCR 30.85 06/27/[address] chest wo IV contrast Narrative: CT CHEST WO IV CONTRAST 06/25/2022 2:58 PM CLINICAL INDICATIONS: Fall, pain TECHNIQUE: Multidetector CT axial slices of the chest were obtained without IV contrast. Multiplanar reformats were performed and viewed on a separate workstation and reviewed to further define anatomy and possible pathology. All CT scans at this facility use dose modulation, iterative reconstruction, and/or weight based dosing when appropriate to reduce radiation dose to as low as reasonably achievable. COMPARISON: None.. FINDINGS: Mild a prominent right paratracheal partially calcified lymph node. A few nonenlarged right hilar lymph nodes appear to be calcified. Likely relates to old granulomatous disease. Three-vessel aortic arch. No additional dilatation the visualized thoracic aorta. Evaluation (more content not included)... Normal [facility] NURSNOTEon 04-10-2025 NURSNOTE RN educated pt on d/ c instructions. This included: site care, limited physical activity, resume normal diet, future appointments, medications, and moderate sedation instructions. RN educated pt on when to notify physician and when to go to the hospital. RN provided pt with arm sling and educated pt on importance of not using arm for 24 hours for radial sites. RN encouraged pt to voice any questions or concerns, and answered any questions or concerns if pt verbalized. Pt was wheeled off of unit with all of belongings. Normal [facility] Orders Onlyon 04-03-2025 Orders Only [id number] George Mclean 1965 M Date Provider Department Center 04/03/2025 KARLA CABRAL [facility] Family History Problem Relation Age of Onset Diabetes Mother Heart attack Father Family Status - Relation Status Age at Mother Alive Father Normal [facility] Orders Onlyon 03-16-2025 Orders Only [id number] George Mclean 1965 [facility] Department [place] 03/16/2025 [id number], HISTORICAL CARD [facility] Family History Problem Relation Age of Onset Diabetes Mother Heart attack Father Family Status - Relation Status Age at Mother Alive Father [facility] 36on 03-15-2025 [address] [...] he would need a cath, advised patient [facility] will be calling him to schedule cath. Advised patient Dr. Burns is aware that we are setting him up with a cath. Patient verbalized understanding and agreed with plan of care [facility] Orders Onlyon 03-15-2025 Orders Only [id number] George Mclean 1965 [facility] Department [place] 03/15/2025 [id number] PETTY MARIA LUISA [facility] Family History Problem Relation Age of Onset Diabetes Mother Heart attack Father Family Status - Relation Status Age at Mother Alive Father [facility] Office Visiton 02-22-2025 Follow-up visit [id number] George Mclean 1965 [facility] Department [place] 02/22/2025 [id number] EMLO CARD [facility] Family History Problem Relation Age of Onset Diabetes Mother Heart attack Father Family Status - Relation Status Age at Mother Alive Father Level of Service:16340 ME OFFICE/OUTPATIENT ESTABLISHED MOD MDM 30 MIN [facility] Skilled Nursing Documentson 03-31-2023 Skilled Nursing Documents [id number] 1.00CD:127 [facility] Outside Colonoscopyon 2022 Outside Colonoscopy [id number] .00CD:127 [facility] Reminderson 11-26-2022 Reminders - From: Erma Glass LPN To: N - Clinical; Sent: 11/26/2022 14:02:54 EDT Show up: 10/25/2032 07:00:00 EST Subject: colonoscopy recall Due Date/Time: 11/25/2032 07:00:00 EDT Reminder/Recall Patient is due for screening colonoscopy 11/25/2032. Normal [facility] POINT OF CARE GLUCOSEon Glucose [Mass/Vol] 130 mg/dL Critically high 74-106 [facility] Comment on above: Performed By: #### P OCGLUC #### [facility] [address] [address] [address] Brianda Renee Facesheeton 11-03-2022 Facesheet [id number] .00CD:127 Normal [facility] Consent for Procedure/Surger yon 11-02-2022 Consent for Procedure/Surgery [id number] .00CD:127 Normal [facility] Ambulatory Visit Summaryon 0 10-30-2022 Ambulatory Visit Summary YOGI MCLEAN :1965 Visit Date:10/30/2022 Ambulatory Visit Instructions Your Diagnosis Screening for malignant neoplasm of colon Tobacco abuse Your Care Team Attending Physician - Mary SILVA MD Primary Care Physician - Tuyet Burns MD Referring Physician - Tuyet Bursn MD This Is Your Medications List Contact [...] treatment for. HTN (hypertension) Hypercholesteremia Thyroid Normal [facility] CBC AUTO DIFFon 10-19-2022 BASO # 0.1 103/ul Normal 0.0-0.1 [facility] Comment on above: Performed By: #### C MP #### [facility] [address] [place] [address] Dr. Brianda Renee Basophils/100 WBC (Bld) 0.6 % Normal 0.2-2.0 [facility] Comment on above: Performed By: #### C MP #### [facility] [address] [place] [address] Dr. Brianda Renee EO # 0.1 103/ul Normal 0.0-0.7 [facility] Comment on above: Performed By: #### C MP #### [facility] [address] [place] [address] Dr. Brianda Renee Eosinophils/100 WBC (Bld) 1.3 % Normal 0.9-7.0 [facility] Comment on above: Performed By: #### C MP #### [facility] [address] [place] [address] Dr. Brianda Renee Erythrocyte distribution width (RBC) [Ratio] 15.9 % Critically high 11.0-15.0 [facility] Comment on above: Performed By: #### C MP #### [facility] [address] [place] [address] Dr. Brianda Renee Hematocrit (Bld) [Volume fraction] 35.2 % Critically low 42.0-54.0 [facility] Comment on above: Performed By: #### C MP #### [facility] [address] [place] [address] Dr. Brianda Renee Hemoglobin (Bld) [Mass/Vol] 11.5 g/dL Critically low 14.0-18.0 [facility] Comment on above: Performed By: #### C MP #### [facility] [address] [place] [address] Dr. Brianda Renee IG # 0.05 10e3/ul Critically high 0.00-0.03 [facility] Comment on above: Performed By: #### C MP #### [facility] [address] [place] [address] Dr. Brianda Renee IG % 0.6 % Critically high 0.0-0.5 [facility] Comment on above: Performed By: #### C MP #### [facility] [address] [place] [address] Dr. Brianda Renee LYMPH # 2.6 103/ul Normal 1.2-3.8 [facility] Comment on above: Performed By: #### C MP #### [facility] [address] [place] [address] Dr. Brianda Renee Lymphocytes/100 WBC (Bld) 28.7 % Normal 20.5-60.0 [facility] Comment on above: Performed By: #### C MP #### [facility] [address] [place] [address] Dr. Brianda Renee MANUAL DIFF REQ NO Normal [facility] Comment on above: Performed By: #### C MP #### [facility] [address] [place] [address] Dr. Brianda Renee MCH (RBC) [Entitic mass] 30.3 pg Normal 25.9-34.0 [facility] Comment on above: Performed By: #### C MP #### [facility] [address] [place] [address] Dr. Brianda Renee MCHC (RBC) [Mass/Vol] 32.7 g/dL Normal 29.9-35.2 [facility] Comment on above: Performed By: #### C MP #### [facility] [address] [place] [address] Dr. Brianda Renee MCV (RBC) [Entitic vol] 92.6 fL Normal 80.0-94.0 [facility] Comment on above: Performed By: #### C MP #### [facility] [address] [place] [address] Dr. Brianda Renee MONO # 0.8 103/ul Normal 0.3-0.8 [facility] Comment on above: Performed By: #### C MP #### [facility] [address] [place] [address] Dr. Brianda Renee Monocytes/100 WBC (Bld) 8.6 % Normal 1.7-12.0 [facility] Comment on above: Performed By: #### C MP #### [facility] [address] [place] [address] Dr. Brianda Renee NEUT # 5.5 103/ul Normal 1.4-6.5 [facility] Comment on above: Performed By: #### C MP #### [facility] [address] [place] [address] Dr. Brianda Renee Neutrophils/100 WBC (Bld) 60.2 % Normal 43.0-75.0 [facility] Comment on above: Performed By: #### C MP #### [facility] [address] [place] [address] Dr. Brianda Renee Platelet mean volume (Bld) [Entitic vol] 9.0 fL Critically low 9.5-13.5 [facility] Comment on above: Performed By: #### C MP #### [facility] [address] [place] [address] Dr. Brianda Renee PLT 246 103/ul Normal 150-450 [facility] Comment on above: Performed By: #### C MP #### [facility] [address] [address] [address] Brianda Renee RBC 3.80 106/ul Critically low 4.70-6.10 [facility] Comment on above: Performed By: #### C MP #### [facility] [address] [address] [address] Brianda Renee WBC 9.1 103/ul Normal 4.0-11.0 [facility] Comment on above: Performed By: #### C MP #### [facility] [address] [address] [address] Brianda Renee LIPID PROFILEon 10-19-2022 CHOL-HDL RATIO NORM SEE BELOW Normal [facility] Comment on above: Result Comment: 3.3 - 4.4 LOW RISK 4.4 - 7.1 AVERAGE RISK 7.1 - 11.0 MODERATE RISK >11.0 HIGH RISK Performed By: #### C MP #### [facility] [address] [address] [address] Brianda Renee Cholesterol [Mass/Vol] 130 mg/dL Normal <=200 [facility] Comment on above: Performed By: #### C MP #### [facility] [address] [place] [address] Dr. Brianda Renee Cholesterol in HDL [Mass/Vol] 50 mg/dL Normal 40-60 [facility] Comment on above: Performed By: #### C MP #### [facility] [address] [address] [address] Brianda Renee Cholesterol in LDL [Mass/Vol] 65.8 mg/dL Normal [facility] Comment on above: Performed By: #### C MP #### [facility] [address] [place] [address] Dr. Brianda Renee Cholesterol.total/Ch olesterol in HDL [Mass ratio] 2.6 {ratio} Normal [facility] Comment on above: Performed By: #### C MP #### [facility] [address] [address] [address] Brianda Renee HDL NORMAL > or = 60 mg/dl - LO W CARDIOVASCULAR RISK <40 mg/dl - HIGH CARDIOVASCULAR RISK Normal [facility] Comment on above: Performed By: #### C MP #### [facility] [address] [address] [address] Brianda Renee LDL CALC NORMAL SEE BELOW Normal [facility] Comment on above: Result Comment: <100 mg/dl OPTIMAL 100 - 129 mg/dl NEAR OR ABOVE OPTIMAL 130 - 159 mg/dl BORDERLINE HIGH 160 - 189 mg/dl HIGH >190 mg/dl VERY HIGH Performed By: #### C MP #### [facility] [address] [address] [address] Brianda Renee Triglyceride [Mass/Vol] 71 mg/dL Normal <=150 [facility] Comment on above: Performed By: #### C MP #### [facility] [address] [place] [address] Dr. Brianda Renee VLDL CALC 14.2 mg/dL Normal [facility] Comment on above: Performed By: #### C MP #### [facility] [address] [address] [address] Brianda Renee PROF 14(COMP METB)on 023 Albumin [Mass/Vol] 3.4 g/dL Normal 3.4-5.0 [facility] Comment on above: Performed By: #### C MP #### [facility] [address] [place] [address] Dr. Brianda Renee Albumin/Globulin [Mass ratio] 1.1 {ratio} Normal [facility] Comment on above: Performed By: #### C MP #### [facility] [address] [address] [address] Brianda Renee ALP [Catalytic activity/Vol] 63 U/L Normal 46-116 [facility] Comment on above: Performed By: #### C MP #### [facility] [address] [address] [address] Brianda Renee ALT [Catalytic activity/Vol] 98 U/L Critically high 16-63 [facility] Comment on above: Performed By: #### C MP #### [facility] [address] [address] [address] Brianda Renee Anion gap [Moles/Vol] 10.5 mmol/L Normal [facility] Comment on above: Performed By: #### C MP #### [facility] [address] [address] [address] Brianda Renee AST [Catalytic activity/Vol] 41 U/L Critically high 15-37 [facility] Comment on above: Performed By: #### C MP #### [facility] [address] [place] [address] Dr. Brianda Renee Bilirubin [Mass/Vol] 0.3 mg/dL Normal 0.2-1.0 [facility] Comment on above: Performed By: #### C MP #### [facility] [address] [place] [address] Dr. Brianda Renee Calcium [Mass/Vol] 9.3 mg/dL Normal 8.5-10.1 [facility] Comment on above: Performed By: #### C MP #### [facility] [address] [place] [address] Dr. Brianda Renee Chloride [Moles/Vol] 105 mmol/L Normal 98-107 [facility] Comment on above: Performed By: #### C MP #### [facility] [address] [place] [address] Dr. Brianda Renee CO2 [Moles/Vol] 29.8 mmol/L Normal 21.0-32.0 [facility] Comment on above: Performed By: #### C MP #### [facility] [address] [place] [address] Dr. Brianda Renee Creatinine [Mass/Vol] 1.15 mg/dL Normal 0.70-1.30 [facility] Comment on above: Performed By: #### C MP #### [facility] [address] [place] [address] Dr. Brianda Renee EGFR-AF COLOMBIAN >60 Normal >=60 [facility] Comment on above: Performed By: #### C MP #### [facility] [address] [address] [address] Brianda Renee EGFR-NON AF COLOMBIAN >60 Normal >=60 [facility] Comment on above: Performed By: #### C MP #### [facility] [address] [place] [address] Dr. Brianda Renee Globulin (S) [Mass/Vol] 3.2 g/dL Normal [facility] Comment on above: Performed By: #### C MP #### [facility] [address] [address] [address] Brianda Renee Glucose [Mass/Vol] 156 mg/dL Critically high 74-106 [facility] Comment on above: Performed By: #### C MP #### [facility] [address] [place] [address] Dr. Brianda Renee Potassium [Moles/Vol] 4.3 mmol/L Normal 3.5-5.1 [facility] Comment on above: Performed By: #### C MP #### [facility] [address] [place] [address] Dr. Brianda Renee Protein [Mass/Vol] 6.6 g/dL Normal 6.4-8.2 [facility] Comment on above: Performed By: #### C MP #### [facility] [address] [place] [address] Dr. Brianda Renee Sodium [Moles/Vol] 141 mmol/L Normal 136-145 [facility] Comment on above: Performed By: #### C MP #### [facility] [address] [place] [address] Dr. Brianda Renee Urea nitrogen [Mass/Vol] 27.0 mg/dL Critically high 7.0-18.0 [facility] Comment on above: Performed By: #### C MP #### [facility] [address] [place] [address] Dr. Brianda Renee Urea nitrogen/Creatinine [Mass ratio] 23.5 mg/mg Normal [facility] Comment on above: Performed By: #### C MP #### [facility] [address] [place] [address] CHEST W CONon [...] exclude. Correlate clinically. Electronically authenticated by: RICARDO WAGNER Date: 2022-10-03 22:07 Normal [facility] CARDIAC JOE ADMITon 023 CK [Catalytic activity/Vol] 46 U/L Normal 39-308 [facility] Comment on above: Performed By: #### C MP #### [facility] [address] [address] [address] Brianda Renee CK.MB [Mass/Vol] 0.95 ng/mL Normal <=3.60 [facility] Comment on above: Performed By: #### C MP #### [facility] [address] [address] [address] Brianda Renee HSTROP 5.8 pg/mL Normal 4.0-76.1 [facility] Comment on above: Result Comment: CUT- OFF POINTS HAVE BEEN ESTABLISHED BASED ON THE FOURTH UNIVERSAL DEFINITIONS OF MYOCARDIAL INFARCTION. THE UPPER REFERENCE LIMIT (URL) OF TROPONIN, DEFINED THE 99TH PERCENTILE OF cTnI DISTRIBUTION IN A REFERENCE POPULATION, HAS BEEN CONFIRMED THE DECISION THRESHOLD FOR RI DIAGNOSIS. Performed By: #### C MP #### [facility] [address] [place] [address] Dr. Brianda Renee TARIK 66 ng/mL Normal 16-96 [facility] Comment on above: Performed By: #### C MP #### [facility] [address] [place] [address] Dr. Brianda Renee CBC AUTO DIFFon 10-03-2022 BASO # 0.1 103/ul Normal 0.0-0.1 [facility] Comment on above: Performed By: #### O BSCRN #### [facility] [address] [place] [address] Dr. Brianda Renee Basophils/100 WBC (Bld) 0.6 % Normal 0.2-2.0 [facility] Comment on above: Performed By: #### O BSCRN #### [facility] [address] [place] [address] Dr. Brianda Renee EO # 0.2 103/ul Normal 0.0-0.7 [facility] Comment on above: Performed By: #### O BSCRN #### [facility] [address] [place] [address] Dr. Brianda Renee Eosinophils/100 WBC (Bld) 1.1 % Normal 0.9-7.0 [facility] Comment on above: Performed By: #### O BSCRN #### [facility] [address] [place] [address] Dr. Brianda Renee Erythrocyte distribution width (RBC) [Ratio] 16.1 % Critically high 11.0-15.0 [facility] Comment on above: Performed By: #### O BSCRN #### [facility] [address] [place] [address] Dr. Brianda Renee Hematocrit (Bld) [Volume fraction] 40.3 % Critically low 42.0-54.0 [facility] Comment on above: Performed By: #### O BSCRN #### [facility] [address] [place] [address] Dr. Brianda Renee Hemoglobin (Bld) [Mass/Vol] 13.0 g/dL Critically low 14.0-18.0 [facility] Comment on above: Performed By: #### O BSCRN #### [facility] [address] [address] [address] Brianda Renee IG # 0.19 10e3/ul Critically high 0.00-0.03 [facility] Comment on above: Performed By: #### O BSCRN #### [facility] [address] [address] [address] Brianda Renee IG % 1.2 % Critically high 0.0-0.5 [facility] Comment on above: Performed By: #### O BSCRN #### [facility] [address] [address] [address] Brianda Renee LYMPH # 4.9 103/ul Critically high 1.2-3.8 [facility] Comment on above: Performed By: #### O BSCRN #### [facility] [address] [address] [address] Brianda Renee Lymphocytes/100 WBC (Bld) 29.6 % Normal 20.5-60.0 [facility] Comment on above: Performed By: #### O BSCRN #### [facility] [address] [address] [address] Brianda Renee MANUAL DIFF REQ NO Normal [facility] Comment on above: Performed By: #### O BSCRN #### [facility] [address] [address] [address] Briadna Renee MCH (RBC) [Entitic mass] 30.3 pg Normal 25.9-34.0 [facility] Comment on above: Performed By: #### O BSCRN #### [facility] [address] [address] [address] Brianda Renee MCHC (RBC) [Mass/Vol] 32.3 g/dL Normal 29.9-35.2 [facility] Comment on above: Performed By: #### O BSCRN #### [facility] [address] [address] [address] Brianda Renee MCV (RBC) [Entitic vol] 93.9 fL Normal 80.0-94.0 [facility] Comment on above: Performed By: #### O BSCRN #### [facility] [address] [address] [address] Brianda Renee MONO # 1.5 103/ul Critically high 0.3-0.[address] [facility] Comment on above: Performed By: #### O BSCRN #### [facility] [address] [address] [address] Brianad Renee Monocytes/100 WBC (Bld) 9.1 % Normal 1.7-12.0 [facility] Comment on above: Performed By: #### O BSCRN #### [facility] [address] [address] [address] Brianda Renee NEUT # 9.6 103/ul Critically high 1.4-6.[address] [facility] Comment on above: Performed By: #### O BSCRN #### [facility] [address] [place] [address] Dr. Brianda Renee Neutrophils/100 WBC (Bld) 58.4 % Normal 43.0-75.0 [facility] Comment on above: Performed By: #### O BSCRN #### [facility] [address] [place] [address] Dr. Brianda Renee Platelet mean volume (Bld) [Entitic vol] 9.8 fL Normal 9.5-13.5 [facility] Comment on above: Performed By: #### O BSCRN #### [facility] [address] [place] [address] Dr. Brianda Renee PLT 294 103/ul Normal 150-450 [facility] Comment on above: Performed By: #### O BSCRN #### [facility] [address] [address] [address] Brianda Renee RBC 4.29 106/ul Critically low 4.70-6.[address] [facility] Comment on above: Performed By: #### O BSCRN #### [facility] [address] [address] [address] Brianda Renee WBC 16.4 103/ul Critically high 4.0-11.0 [facility] Comment on above: Performed By: #### O BSCRN #### [facility] [address] [address] [address] CSPINE WO CONon [...] TRUDI LAGOS Date: 2022-10-03 21:13 Normal [facility] CT HEAD WO CONon 10-03-2022 CT [...] MARY EDWARD Date: 2022-10-03 21:26 Normal [facility] DRUG SCREEN RAPID (URINE)on 10-03-2022 AMP Negative Normal NEGATIVE [facility] Comment on above: Performed By: #### O BSCRN #### [facility] [address] [place] [address] Dr. Brianda Renee BAR Negative Normal NEGATIVE [facility] Comment on above: Performed By: #### O BSCRN #### [facility] [address] [place] [address] Dr. Brianda Renee BUP Negative Normal NEGATIVE [facility] Comment on above: Performed By: #### O BSCRN #### [facility] [address] [place] [address] Dr. Brianda Renee BZO Positive Abnormal NEGATIVE [facility] Comment on above: Performed By: #### O BSCRN #### [facility] [address] [place] [address] Dr. Brianda Renee MARISA Negative Normal NEGATIVE [facility] Comment on above: Performed By: #### O BSCRN #### [facility] [address] [place] [address] Dr. Brianda Renee CUT-OFFS SEE BELOW Normal [facility] Comment on above: Result Comment: AMP [...] ng/mL Performed By: #### O BSCRN #### [facility] [address] [place] [address] Dr. Brianda Renee DRUG CUT HEADER DRUG CLASS TEST SYSTEM CUT-OFF CONCENTRATIONS ARE FOLLOWS: Normal [facility] Comment on above: Performed By: #### O BSCRN #### [facility] [address] [place] [address] Dr. Brianda Renee mAMP Negative Normal NEGATIVE [facility] Comment on above: Performed By: #### O BSCRN #### [facility] [address] [address] [address] Brianda Renee MTD Negative Normal NEGATIVE [facility] Comment on above: Performed By: #### O BSCRN #### [facility] [address] [place] [address] Dr. Brianda Renee OPI Negative Normal NEGATIVE [facility] Comment on above: Performed By: #### O BSCRN #### [facility] [address] [place] [address] Dr. Brianda Renee OXY Negative Normal NEGATIVE [facility] Comment on above: Performed By: #### O BSCRN #### [facility] [address] [place] [address] Dr. Brianda Renee PCP Negative Normal NEGATIVE [facility] Comment on above: Performed By: #### O BSCRN #### [facility] [address] [place] [address] Dr. Brianda Renee PPX Negative Normal NEGATIVE [facility] Comment on above: Performed By: #### O BSCRN #### [facility] [address] [place] [address] Dr. Brianda Renee TCA Positive Abnormal NEGATIVE [facility] Comment on above: Performed By: #### O BSCRN #### [facility] [address] [place] [address] Dr. Brianda Renee THC Positive Abnormal NEGATIVE [facility] Comment on above: Performed By: #### O BSCRN #### [facility] [address] [place] [address] Dr. Brianda Renee ER URINE PROFILEon 3 Bilirubin Ql (U) Negative Normal NEGATIVE [facility] Comment on above: Performed By: #### O BSCRN #### [facility] [address] [place] [address] Dr. Brianda Renee Clarity (U) CLEAR Normal CLEAR [facility] Comment on above: Performed By: #### O BSCRN #### [facility] [address] [address] [address] Brianda Renee Color (U) LT. YELLOW Normal YELLOW [facility] Comment on above: Performed By: #### O BSCRN #### [facility] [address] [place] [address] Dr. Brianda HEIN A micrscopic examination will be performed if indicated. Normal [facility] Comment on above: Performed By: #### O BSCRN #### [facility] [address] [place] [address] Dr. Brianda Renee Glucose Ql (U) Negative Normal NEGATIVE [facility] Comment on above: Performed By: #### O BSCRN #### [facility] [address] [place] [address] Dr. Brianda Renee Hemoglobin Ql (U) Negative Normal NEGATIVE [facility] Comment on above: Performed By: #### O BSCRN #### [facility] [address] [place] [address] Dr. Brianda Renee Ketones Ql (U) Negative Normal NEGATIVE [facility] Comment on above: Performed By: #### O BSCRN #### [facility] [address] [place] [address] Dr. Brianda Renee LEUKOCYTES Negative Normal NEGATIVE [facility] Comment on above: Performed By: #### O BSCRN #### [facility] [address] [place] [address] Dr. Brianda Renee Nitrite Ql (U) Negative Normal NEGATIVE [facility] Comment on above: Performed By: #### O BSCRN #### [facility] [address] [place] [address] Dr. Brianda Renee pH (U) 5.5 [pH] Normal 5-9 [facility] Comment on above: Performed By: #### O BSCRN #### [facility] [address] [place] [address] Dr. Brianda Renee SPEC GRAVITY 1.010 Normal 1.005-<=1.025 [facility] Comment on above: Performed By: #### O BSCRN #### [facility] [address] [place] [address] Dr. Brianda Renee UA PROTEIN Negative Normal NEGATIVE/ TRACE [facility] Comment on above: Performed By: #### O BSCRN #### [facility] [address] [place] [address] Dr. Brianda Renee UR MICRO IND NOT INDICATED Normal [facility] Comment on above: Performed By: #### O BSCRN #### [facility] [address] [address] [address] Brianda Renee Urobilinogen Qn (U) 0.2 {Anisa'U}/dL Normal 0.2 - 1. 0 [facility] Comment on above: Performed By: #### O BSCRN #### [facility] [address] [place] [address] Dr. Brianda Renee ETHANOL (BLD ALC)on 10-03-19 23 ALC NOTE NOTE: 80 mg/dl is th e legal limit for a blood alcohol level Normal [facility] Comment on above: Performed By: #### C MP #### [facility] [address] [place] [address] Dr. Brianda Renee Ethanol [Mass/Vol] mg/dL Normal [facility] Comment on above: Performed By: #### C MP #### [facility] [address] [place] [address] Dr. Brianda Renee PROF 14(COMP METB)on 023 Albumin [Mass/Vol] 3.4 g/dL Normal 3.4-5.0 [facility] Comment on above: Performed By: #### C MP #### [facility] [address] [place] [address] Dr. Brianda Renee Albumin/Globulin [Mass ratio] 0.9 {ratio} Normal [facility] Comment on above: Performed By: #### C MP #### [facility] [address] [place] [address] Dr. Brianda Renee ALP [Catalytic activity/Vol] 73 U/L Normal 46-116 [facility] Comment on above: Performed By: #### C MP #### [facility] [address] [address] [address] Brianda Renee ALT [Catalytic activity/Vol] 70 U/L Critically high 16-63 [facility] Comment on above: Performed By: #### C MP #### [facility] [address] [address] [address] Brianda Renee Anion gap [Moles/Vol] 16.4 mmol/L Normal [facility] Comment on above: Performed By: #### C MP #### [facility] [address] [address] [address] Brianda Renee AST [Catalytic activity/Vol] 37 U/L Normal 15-37 [facility] Comment on above: Performed By: #### C MP #### [facility] [address] [place] [address] Dr. Brianda Renee Bilirubin [Mass/Vol] 0.2 mg/dL Normal 0.2-1.0 [facility] Comment on above: Performed By: #### C MP #### [facility] [address] [place] [address] Dr. Brianda Renee Calcium [Mass/Vol] 9.1 mg/dL Normal 8.5-10.1 [facility] Comment on above: Performed By: #### C MP #### [facility] [address] [place] [address] Dr. Brianda Renee Chloride [Moles/Vol] 101 mmol/L Normal 98-107 [facility] Comment on above: Performed By: #### C MP #### [facility] [address] [address] [address] Brianda Renee CO2 [Moles/Vol] 27.0 mmol/L Normal 21.0-32.0 [facility] Comment on above: Performed By: #### C MP #### [facility] [address] [address] [address] Brianda Renee Creatinine [Mass/Vol] 1.32 mg/dL Critically high 0.70-1.30 [facility] Comment on above: Performed By: #### C MP #### [facility] [address] [address] [address] Brianda Renee EGFR-AF COLOMBIAN >60 Normal >=60 [facility] Comment on above: Performed By: #### C MP #### [facility] [address] [address] [address] Brianda Renee EGFR-NON AF COLOMBIAN 56 mL/min/1.73m2 Critically low >=60 [facility] Comment on above: Performed By: #### C MP #### [facility] [address] [address] [address] Brianda Renee Globulin (S) [Mass/Vol] 3.6 g/dL Normal [facility] Comment on above: Performed By: #### C MP #### [facility] [address] [address] [address] Brianda Renee Glucose [Mass/Vol] 113 mg/dL Critically high 74-106 [facility] Comment on above: Performed By: #### C MP #### [facility] [address] [address] [address] Brianda Renee Potassium [Moles/Vol] 4.4 mmol/L Normal 3.5-5.1 [facility] Comment on above: Performed By: #### C MP #### [facility] [address] [address] [address] Brianda Renee Protein [Mass/Vol] 7.0 g/dL Normal 6.4-8.2 [facility] Comment on above: Performed By: #### C MP #### [facility] [address] [address] [address] Brianda Renee Sodium [Moles/Vol] 140 mmol/L Normal 136-145 [facility] Comment on above: Performed By: #### C MP #### [facility] [address] [address] [address] Brianda Renee Urea nitrogen [Mass/Vol] 35.0 mg/dL Critically high 7.0-18.0 [facility] Comment on above: Performed By: #### C MP #### [facility] [address] [address] [address] Brianda Renee Urea nitrogen/Creatinine [Mass ratio] 26.5 mg/mg Normal [facility] Comment on above: Performed By: #### C MP #### [facility] [address] [place] [address] Dr. Brianda Renee CBC AUTO DIFFon 08-27-2022 BASO # 0.0 103/ul Normal 0.0-0.1 [facility] Comment on above: Performed By: #### ARRON DARLINGRO #### [facility] [address] [place] [address] Dr. Brianda Renee Basophils/100 WBC (Bld) 0.3 % Normal 0.2-2.0 [facility] Comment on above: Performed By: #### ARRON DARLINGRO #### [facility] [address] [place] [address] Dr. Brianda Renee EO # 0.0 103/ul Normal 0.0-0.7 [facility] Comment on above: Performed By: #### ARRON DARLINGRO #### [facility] [address] [place] [address] Dr. Brianda Renee Eosinophils/100 WBC (Bld) 0.0 % Critically low 0.9-7.0 [facility] Comment on above: Performed By: #### ARRON DARLINGRO #### [facility] [address] [place] [address] Dr. Brianda Renee Erythrocyte distribution width (RBC) [Ratio] 15.7 % Critically high 11.0-15.0 [facility] Comment on above: Performed By: #### ARRON DARLINGRO #### [facility] [address] [place] [address] Dr. Brianda Renee Hematocrit (Bld) [Volume fraction] 30.8 % Critically low 42.0-54.0 [facility] Comment on above: Performed By: #### ARRON DARLINGRO #### [facility] [address] [place] [address] Dr. Brianda Renee Hemoglobin (Bld) [Mass/Vol] 10.4 g/dL Critically low 14.0-18.0 [facility] Comment on above: Performed By: #### E RUR UMICRO #### [facility] [address] [place] [address] Dr. Brianda Renee IG # 0.07 10e3/ul Critically high 0.00-0.03 [facility] Comment on above: Performed By: #### E RUR, UMICRO #### [facility] [address] [place] [address] Dr. Brianda Renee IG % 0.6 % Critically high 0.0-0.5 [facility] Comment on above: Performed By: #### E RUMarysol, UMICRO #### [facility] [address] [place] [address] Dr. Brianda Renee LYMPH # 1.3 103/ul Normal 1.2-3.8 [facility] Comment on above: Performed By: #### Mariela MARMOLEJO UMICRO #### [facility] [address] [place] [address] Dr. Brianda Renee Lymphocytes/100 WBC (Bld) 10.8 % Critically low 20.5-60.0 [facility] Comment on above: Performed By: #### Mariela MARMOLEJO UMICRO #### [facility] [address] [place] [address] Dr. Brianda Renee MANUAL DIFF REQ NO Normal [facility] Comment on above: Performed By: #### Mariela MARMOLEJO, UMICRO #### [facility] [address] [place] [address] Dr. Brianda Renee MCH (RBC) [Entitic mass] 29.7 pg Normal 25.9-34.0 [facility] Comment on above: Performed By: #### E RUMarysol, UMICRO #### [facility] [address] [place] [address] Dr. Brianda Renee MCHC (RBC) [Mass/Vol] 33.8 g/dL Normal 29.9-35.2 [facility] [facility] Comment on above: Performed By: #### E RUMarysol, UMICRO #### [facility] [address] [place] [address] Dr. Brianda Renee MCV (RBC) [Entitic vol] 88.0 fL Normal 80.0-94.0 [facility] Comment on above: Performed By: #### ARRON DARLINGRO #### [facility] [address] [place] [address] Dr. Brianda Renee MONO # 0.5 103/ul Normal 0.3-0.8 [facility] Comment on above: Performed By: #### ARRON DARLINGRO #### [facility] [address] [place] [address] Dr. Brianda Renee Monocytes/100 WBC (Bld) 4.6 % Normal 1.7-12.0 [facility] Comment on above: Performed By: #### KARIN DARLING #### [facility] [address] [place] [address] Dr. Brianda Renee NEUT # 9.7 103/ul Critically high 1.4-6.[address] [facility] Comment on above: Performed By: #### ARRON DARLINGRO #### [facility] [address] [place] [address] Dr. Brianda Renee Neutrophils/100 WBC (Bld) 83.7 % Critically high 43.0-75.0 [facility] Comment on above: Performed By: #### ARRON DARLINGRO #### [facility] [address] [place] [address] Dr. Brianda Renee Platelet mean volume (Bld) [Entitic vol] 9.9 fL Normal 9.5-13.5 [facility] Comment on above: Performed By: #### ARRON DARLINGRO #### [facility] [address] [place] [address] Dr. Brianda Renee PLT 243 103/ul Normal 150-450 [facility] Comment on above: Performed By: #### ARRON DARLINGRO #### [facility] [address] [place] [address] Dr. Brianda Renee RBC 3.50 106/ul Critically low 4.70-6.[address] [facility] Comment on above: Performed By: #### KARIN DARLING #### [facility] [address] [place] [address] Dr. Brianda Renee WBC 11.6 103/ul Critically high 4.0-11.0 [facility] Comment on above: Performed By: #### KARIN DARLING #### [facility] [address] [place] [address] Dr. Brianda Renee POINT OF CARE GLUCOSEon Glucose [Mass/Vol] 210 mg/dL Critically high 74-106 [facility] Comment on above: Performed By: #### C MP #### [facility] [address] [address] [address] Brianda Renee PROF CHEM 8 (BAS METB)on Anion gap [Moles/Vol] 13.9 mmol/L Normal [facility] Comment on above: Performed By: #### C MP #### [facility] [address] [place] [address] Dr. Brianda Renee Calcium [Mass/Vol] 8.9 mg/dL Normal 8.5-10.1 [facility] Comment on above: Performed By: #### C MP #### [facility] [address] [address] [address] Brianda Renee Chloride [Moles/Vol] 100 mmol/L Normal 98-107 [facility] Comment on above: Performed By: #### C MP #### [facility] [address] [place] [address] Dr. Brianda Renee CO2 [Moles/Vol] 26.3 mmol/L Normal 21.0-32.0 [facility] Comment on above: Performed By: #### C MP #### [facility] [address] [place] [address] Dr. Brianda Renee Creatinine [Mass/Vol] 1.07 mg/dL Normal 0.70-1.30 [facility] Comment on above: Performed By: #### C MP #### [facility] [address] [place] [address] Dr. Brianda Renee EGFR-AF COLOMBIAN >60 Normal >=60 [facility] Comment on above: Performed By: #### C MP #### [facility] [address] [address] [address] Brianda Renee EGFR-NON AF COLOMBIAN >60 Normal >=60 [facility] Comment on above: Performed By: #### C MP #### [facility] [address] [address] [address] Brianda Renee Glucose [Mass/Vol] 176 mg/dL Critically high 74-106 [facility] Comment on above: Performed By: #### C MP #### [facility] [address] [address] [address] Brianda Renee Potassium [Moles/Vol] 3.2 mmol/L Critically low 3.5-5.1 [facility] Comment on above: Performed By: #### C MP #### [facility] [address] [address] [address] Brianda Renee Sodium [Moles/Vol] 137 mmol/L Normal 136-145 [facility] Comment on above: Performed By: #### C MP #### [facility] [address] [address] [address] Brianda Renee Urea nitrogen [Mass/Vol] 39.0 mg/dL Critically high 7.0-18.0 [facility] Comment on above: Performed By: #### C MP #### [facility] [address] [address] [address] Brianda Renee Urea nitrogen/Creatinine [Mass ratio] 36.4 mg/mg Normal [facility] Comment on above: Performed By: #### C MP #### [facility] [address] [address] [address] Brianda Renee CBC AUTO DIFFon 08-26-2022 BASO # 0.0 103/ul Normal 0.0-0.1 [facility] Comment on above: Performed By: #### P SASC #### [facility] [address] [address] [address] Brianda Renee Basophils/100 WBC (Bld) 0.1 % Critically low 0.2-2.0 [facility] Comment on above: Performed By: #### P SASC #### [facility] [address] [address] [address] Brianda Renee EO # 0.0 103/ul Normal 0.0-0.7 [facility] Comment on above: Performed By: #### P SASC #### [facility] [address] [place] [address] Dr. Brianda Renee Eosinophils/100 WBC (Bld) 0.0 % Critically low 0.9-7.0 [facility] Comment on above: Performed By: #### P SASC #### [facility] [address] [place] [address] Dr. Brianda Renee Erythrocyte distribution width (RBC) [Ratio] 15.9 % Critically high 11.0-15.0 [facility] Comment on above: Performed By: #### P SASC #### [facility] [address] [place] [address] Dr. Brianda Renee Hematocrit (Bld) [Volume fraction] 30.9 % Critically low 42.0-54.0 [facility] Comment on above: Performed By: #### P SASC #### [facility] [address] [place] [address] Dr. Brianda Renee Hemoglobin (Bld) [Mass/Vol] 10.5 g/dL Critically low 14.0-18.0 [facility] Comment on above: Performed By: #### P SASC #### [facility] [address] [place] [address] Dr. Brianda Renee IG # 0.03 10e3/ul Normal 0.00-0.03 [facility] Comment on above: Performed By: #### P SASC #### [facility] [address] [place] [address] Dr. Brianda Renee IG % 0.4 % Normal 0.0-0.5 [facility] Comment on above: Performed By: #### P SASC #### [facility] [address] [place] [address] Dr. Brianda Renee LYMPH # 0.7 103/ul Critically low 1.2-3.8 [facility] Comment on above: Performed By: #### P SASC #### [facility] [address] [address] [address] Brianda Renee Lymphocytes/100 WBC (Bld) 9.5 % Critically low 20.5-60.0 [facility] Comment on above: Performed By: #### P SASC #### [facility] [address] [address] [address] Brianda Renee MANUAL DIFF REQ NO Normal [facility] Comment on above: Performed By: #### P SASC #### [facility] [address] [address] [address] Brianda Renee MCH (RBC) [Entitic mass] 30.1 pg Normal 25.9-34.0 [facility] Comment on above: Performed By: #### P SASC #### [facility] [address] [address] [address] Brianda Renee MCHC (RBC) [Mass/Vol] 34.0 g/dL Normal 29.9-35.2 [facility] Comment on above: Performed By: #### P SASC #### [facility] [address] [address] [address] Brianda Renee MCV (RBC) [Entitic vol] 88.5 fL Normal 80.0-94.0 [facility] Comment on above: Performed By: #### P SASC #### [facility] [address] [address] [address] Brianda Renee MONO # 0.3 103/ul Normal 0.3-0.8 [facility] Comment on above: Performed By: #### P SASC #### [facility] [address] [address] [address] Brianda Renee Monocytes/100 WBC (Bld) 4.4 % Normal 1.7-12.0 [facility] Comment on above: Performed By: #### P SASC #### [facility] [address] [address] [address] Brianda Renee NEUT # 6.0 103/ul Normal 1.4-6.5 [facility] Comment on above: Performed By: #### P SASC #### [facility] [address] [address] [address] Brianda Renee Neutrophils/100 WBC (Bld) 85.6 % Critically high 43.0-75.0 [facility] Comment on above: Performed By: #### P SASC #### [facility] [address] [address] [address] Brianda Renee Platelet mean volume (Bld) [Entitic vol] 9.9 fL Normal 9.5-13.5 [facility] Comment on above: Performed By: #### P SASC #### [facility] [address] [address] [address] Brianda Renee PLT 215 103/ul Normal 150-450 [facility] Comment on above: Performed By: #### P SASC #### [facility] [address] [address] [address] Brianda Renee RBC 3.49 106/ul Critically low 4.70-6.10 [facility] Comment on above: Performed By: #### P SASC #### [facility] [address] [address] [address] Brianda Renee WBC 7.0 103/ul Normal 4.0-11.0 [facility] Comment on above: Performed By: #### P SASC #### [facility] [address] [address] [address] Brianda Renee POINT OF CARE GLUCOSEon Glucose [Mass/Vol] 298 mg/dL Critically high 74-106 [facility] Comment on above: Performed By: #### P OCGLUC #### [facility] [address] [address] [address] Brianda Renee Glucose [Mass/Vol] 277 mg/dL Critically high -106 [facility] Comment on above: Performed By: #### P OCGLUC #### [facility] [address] [address] [address] Brianda Renee Glucose [Mass/Vol] 315 mg/dL Critically high [facility]106 [facility] Comment on above: Performed By: #### C MP #### [facility] [address] [place] [address] Dr. Brianda Renee PROF CHEM 8 (BAS METB)on Anion gap [Moles/Vol] 14.8 mmol/L Normal [facility] Comment on above: Performed By: #### C MP #### [facility] [address] [place] [address] Dr. Brianda Renee Calcium [Mass/Vol] 8.6 mg/dL Normal 8.5-10.1 [facility] Comment on above: Performed By: #### C MP #### [facility] [address] [place] [address] Dr. Brianda Renee Chloride [Moles/Vol] 100 mmol/L Normal 98-107 [facility] Comment on above: Performed By: #### C MP #### [facility] [address] [place] [address] Dr. Brianda Renee CO2 [Moles/Vol] 24.8 mmol/L Normal 21.0-32.0 [facility] Comment on above: Performed By: #### C MP #### [facility] [address] [place] [address] Dr. Brianda Renee Creatinine [Mass/Vol] 1.07 mg/dL Normal 0.70-1.30 [facility] Comment on above: Performed By: #### C MP #### [facility] [address] [place] [address] Dr. Brianda Renee EGFR-AF COLOMBIAN >60 Normal >=60 [facility] Comment on above: Performed By: #### C MP #### [facility] [address] [place] [address] Dr. Brianda Renee EGFR-NON AF COLOMBIAN >60 Normal >=60 [facility] Comment on above: Performed By: #### C MP #### [facility] [address] [place] [address] Dr. Brianda Renee Glucose [Mass/Vol] 205 mg/dL Critically high 74-106 [facility] Comment on above: Performed By: #### C MP #### [facility] [address] [address] [address] Brianda Renee Potassium [Moles/Vol] 3.6 mmol/L Normal 3.5-5.1 [facility] Comment on above: Performed By: #### C MP #### [facility] [address] [address] [address] Brianda Renee Sodium [Moles/Vol] 136 mmol/L Normal 136-145 [facility] Comment on above: Performed By: #### C MP #### [facility] [address] [address] [address] Brianda Renee Urea nitrogen [Mass/Vol] 28.0 mg/dL Critically high 7.0-18.0 [facility] Comment on above: Performed By: #### C MP #### [facility] [address] [place] [address] Dr. Brianda Renee Urea nitrogen/Creatinine [Mass ratio] 26.2 mg/mg Normal [facility] Comment on above: Performed By: #### C MP #### [facility] [address] [address] [address] Brianda Renee CULTURE SPUTUMon 08-25-2022 CULTURE SPUTUM Isolate 1 Marti albicans Light growth of Normal [facility] Comment on above: Performed By: #### O BSCRN #### [facility] [address] [place] [address] Dr. Brianda Renee D-DIMERon 08-25-2022 D-DIMER 1.63 mg/L FEU Critically high <=0.59 [facility] Comment on above: Performed By: #### E RUR UMMARTELLRO #### [facility] [address] [place] [address] Dr. Brianda Renee D-DIMER COMMENTS SEE BELOW Normal [facility] Comment on above: Result Comment: Incr eases [...] Performed By: #### E KARIN MARMOLEJO #### [facility] [address] [address] [address] Brianda Renee GLYCOHEMOGLOBIN A1Con 2022 ADA RECOMMENDATION SEE BELOW Normal [facility] Comment on above: Result Comment: ADA RECOMMENDED LIMIT 4.0 - 6.0 ADA THERAPEUTIC TARGET < 7.0 ACTION SUGGESTED > 7.0 Performed By: #### C MP #### [facility] [address] [address] [address] Brianda Renee Glucose [Mass/Vol] 143 mg/dL Normal [facility] Comment on above: Performed By: #### C MP #### [facility] [address] [address] [address] Brianda Renee HbA1c (Bld) [Mass fraction] 6.6 % Critically high 4.5-6.2 [facility] Comment on above: Performed By: #### C MP #### [facility] [address] [address] [address] Brianda Renee NM LUNG VENT_PERFon 08-25-19 [...] by: ROSEY GATES Date: 2022-08-25 07:56 Normal [facility] POINT OF CARE GLUCOSEon Glucose [Mass/Vol] 320 mg/dL Critically high 74-106 [facility] Comment on above: Performed By: #### E KARIN MARMOLEJO #### [facility] [address] [place] [address] Dr. Brianda Renee Glucose [Mass/Vol] 257 mg/dL Critically high 74-106 [facility] Comment on above: Performed By: #### O BSCRN #### [facility] [address] [address] [address] Brianda Renee Glucose [Mass/Vol] 263 mg/dL Critically high -106 [facility] Comment on above: Performed By: #### C MP #### [facility] [address] [place] [address] Dr. Brianda Renee Glucose [Mass/Vol] 229 mg/dL Critically high -106 [facility] Comment on above: Performed By: #### P SASC #### [facility] [address] [place] [address] Dr. Brianda Renee PROF CHEM 8 (BAS METB)on Anion gap [Moles/Vol] 10.0 mmol/L Normal [facility] Comment on above: Performed By: #### C MP #### [facility] [address] [place] [address] Dr. Brianda Renee Calcium [Mass/Vol] 8.1 mg/dL Critically low 8.5-10.1 [facility] Comment on above: Performed By: #### C MP #### [facility] [address] [place] [address] Dr. Brianda Renee Chloride [Moles/Vol] 101 mmol/L Normal 98-107 [facility] Comment on above: Performed By: #### C MP #### [facility] [address] [place] [address] Dr. Brianda Renee CO2 [Moles/Vol] 26.9 mmol/L Normal 21.0-32.0 [facility] Comment on above: Performed By: #### C MP #### [facility] [address] [place] [address] Dr. Brianda Renee Creatinine [Mass/Vol] 1.47 mg/dL Critically high 0.70-1.30 [facility] Comment on above: Performed By: #### C MP #### [facility] [address] [address] [address] Brianda Renee EGFR-AF COLOMBIAN 60 mL/min/1.73m2 Normal >=60 [facility] Comment on above: Performed By: #### C MP #### [facility] [address] [address] [address] Brianda Renee EGFR-NON AF COLOMBIAN 50 mL/min/1.73m2 Critically low >=60 [facility] Comment on above: Performed By: #### C MP #### [facility] [address] [place] [address] Dr. Brianda Renee Glucose [Mass/Vol] 179 mg/dL Critically high 74-106 [facility] Comment on above: Performed By: #### C MP #### [facility] [address] [place] [address] Dr. Brianda Renee Potassium [Moles/Vol] 3.9 mmol/L Normal 3.5-5.1 [facility] Comment on above: Performed By: #### C MP #### [facility] [address] [place] [address] Dr. Brianda Renee Sodium [Moles/Vol] 134 mmol/L Critically low 136-145 [facility] Comment on above: Performed By: #### C MP #### [facility] [address] [address] [address] Brianda Renee Urea nitrogen [Mass/Vol] 37.0 mg/dL Critically high 7.0-18.0 [facility] Comment on above: Performed By: #### C MP #### [facility] [address] [place] [address] Dr. Brianda Renee Urea nitrogen/Creatinine [Mass ratio] 25.2 mg/mg Normal [facility] Comment on above: Performed By: #### C MP #### [facility] [address] [place] [address] Dr. Brianda Renee RESPIRATORY PANEL PLUSon Adenovirus Not detected Normal NOT DETECTED [facility] Comment on above: Performed By: #### P SASC #### [facility] [address] [place] [address] Dr. Brianda Mckenzie Parapertusis Not detected Normal NOT DETECTED [facility] Comment on above: Performed By: #### P SASC #### [facility] [address] [place] [address] Dr. Brianda Mckenzie Pertussis Not detected Normal NOT DETECTED [facility] Comment on above: Performed By: #### P SASC #### [facility] [address] [place] [address] Dr. Brianda Renee Chlamydia Pneumoniae Not detected Normal NOT DETECTED [facility] Comment on above: Performed By: #### P SASC #### [facility] [address] [place] [address] Dr. Brianda Renee Coronavirus 229E Not detected Normal NOT DETECTED [facility] Comment on above: Performed By: #### P SASC #### [facility] [address] [place] [address] Dr. Brianda Renee Coronavirus HKU1 Not detected Normal NOT DETECTED [facility] Comment on above: Performed By: #### P SASC #### [facility] [address] [place] [address] Dr. Brianda Renee Coronavirus NL63 Not detected Normal NOT DETECTED [facility] Comment on above: Performed By: #### P SASC #### [facility] [address] [place] [address] Dr. Brianda Renee Coronavirus OC43 Not detected Normal NOT DETECTED [facility] Comment on above: Performed By: #### P SASC #### [facility] [address] [place] [address] Dr. Brianda Renee Influenza A H1 2009 Not detected Normal NOT DETECTED [facility] Comment on above: Performed By: #### P SASC #### [facility] [address] [place] [address] Dr. Brianda Renee Influenza A H3 Detected Abnormal NOT DETECTED [facility] Comment on above: Performed By: #### P SASC #### [facility] [address] [address] [address] Brianda Renee Influenza B Not detected Normal NOT DETECTED [facility] Comment on above: Performed By: #### P SASC #### [facility] [address] [address] [address] Brianda Renee Metapneumovirus Not detected Normal NOT DETECTED [facility] Comment on above: Performed By: #### P SASC #### [facility] [address] [address] [address] Brianda Renee Mycoplas. Pneumoniae Not detected Normal NOT DETECTED [facility] Comment on above: Performed By: #### P SASC #### [facility] [address] [place] [address] Dr. Brianda Renee Parainfluenza 1 Not detected Normal NOT DETECTED [facility] Comment on above: Performed By: #### P SASC #### [facility] [address] [place] [address] Dr. Brianda Renee Parainfluenza 2 Not detected Normal NOT DETECTED [facility] Comment on above: Performed By: #### P SASC #### [facility] [address] [address] [address] Brianda Renee Parainfluenza 3 Not detected Normal NOT DETECTED [facility] Comment on above: Performed By: #### P SASC #### [facility] [address] [place] [address] Dr. Brianda Renee Parainfluenza 4 Not detected Normal NOT DETECTED [facility] Comment on above: Performed By: #### P SASC #### [facility] [address] [address] [address] Brianda Renee Rhino/Enterovirus Not detected Normal NOT DETECTED [facility] Comment on above: Performed By: #### P SASC #### [facility] [address] [place] [address] Dr. Brianda Renee RP2 Header 1 RESPIRATORY PANEL: VIRUSES Normal [facility] Comment on above: Performed By: #### P SASC #### [facility] [address] [place] [address] Dr. Brianda Renee RP2 Header 2 RESPIRATORY PANEL: BACTERIA Normal [facility] Comment on above: Performed By: #### P SASC #### [facility] [address] [place] [address] Dr. Brianda Renee RSV Not detected Normal NOT DETECTED [facility] Comment on above: Performed By: #### P SASC #### [facility] [address] [place] [address] Dr. Brianda Renee SARS-CoV-2 (COVID-19) RNA JEREMIAH+probe Ql (Unsp spec) Not detected Normal NOT DETECTED [facility] Comment on above: Performed By: #### P SASC #### [facility] [address] [place] [address] Dr. Brianda Renee TSHon 08-25-2022 TSH 0.226 uIU/mL Critically low 0.358-3.740 [facility] Comment on above: Performed By: #### C MP #### [facility] [address] [place] [address] Dr. Brianda Renee UA RANDOM W/MICROSCOPICon BACTERIA TRACE Abnormal NONE SEEN [facility] Comment on above: Performed By: #### P SASC #### [facility] [address] [place] [address] Dr. Brianda Renee Bilirubin Ql (U) Negative Normal NEGATIVE [facility] Comment on above: Performed By: #### P SASC #### [facility] [address] [place] [address] Dr. Brianda Renee CAST NONE SEEN Normal NONE SEEN [facility] Comment on above: Performed By: #### P SASC #### [facility] [address] [place] [address] Dr. Brianda Renee Clarity (U) CLEAR Normal CLEAR [facility] Comment on above: Performed By: #### P SASC #### [facility] [address] [place] [address] Dr. Brianda Renee Color (U) LT. YELLOW Normal YELLOW [facility] Comment on above: Performed By: #### P SASC #### [facility] [address] [place] [address] Dr. Brianda Renee Crystals LM Nom (Urine sed) NONE SEEN Normal NONE SEEN [facility] Comment on above: Performed By: #### P SASC #### [facility] [address] [address] [address] Brianda Renee Epithelial cells LM Ql (Urine sed) NONE SEEN Normal NONE SEEN /RARE [facility] Comment on above: Performed By: #### P SASC #### [facility] [address] [address] [address] Brianda Renee Glucose Ql (U) 500 mg/dl Abnormal NEGATIVE [facility] Comment on above: Performed By: #### P SASC #### [facility] [address] [address] [address] Brianda Renee Hemoglobin Ql (U) SMALL Abnormal NEGATIVE The [facility] Comment on above: Performed By: #### P SASC #### [facility] [address] [address] [address] Brianda Renee Ketones Ql (U) Negative Normal NEGATIVE The [facility] Comment on above: Performed By: #### P SASC #### [facility] [address] [address] [address] Brianda Renee LEUKOCYTES Negative Normal NEGATIVE [facility] Comment on above: Performed By: #### P SASC #### [facility] [address] [address] [address] Brianda Renee MUCOUS NONE SEEN Normal NONE SEEN [facility] Comment on above: Performed By: #### P SASC #### [facility] [address] [address] [address] Brianda Renee Nitrite Ql (U) Negative Normal NEGATIVE [facility] Comment on above: Performed By: #### P SASC #### [facility] [address] [address] [address] Brianda Renee pH (U) 5.5 [pH] Normal 5-9 [facility] Comment on above: Performed By: #### P SASC #### [facility] [address] [address] [address] Brianda Renee RBC 0-2 Normal 0-2 [facility] Comment on above: Performed By: #### P SASC #### [facility] [address] [address] [address] Brianda Renee SPEC GRAVITY 1.025 Normal 1.005-<=1.[address] [facility] Comment on above: Performed By: #### P SASC #### [facility] [address] [address] [address] Brianda Renee UA PROTEIN 30 mg/dl Abnormal NEGATIVE/ TRACE [facility] Comment on above: Performed By: #### P SASC #### [facility] [address] [address] [address] Brianda Renee Urobilinogen Qn (U) 1.0 {Anisa'U}/dL Normal 0.2 - 1. 0 [facility] Comment on above: Performed By: #### P SASC #### [facility] [address] [address] [address] Brianda Renee WBC NONE SEEN Normal NONE SEEN [facility] Comment on above: Performed By: #### P SASC #### [facility] [address] [place] [address] Dr. Brianda Renee US REJI DOP LEG [...] ROSEY GATES Date: 2022-08-25 07:58 Normal [facility] XR CHEST 2 Von 08-25-2022 XR [...] ROSEY GATES Date: 2022-08-25 09:22 Normal [facility] BNPon 08-24-2022 Natriuretic peptide B (Bld) [Mass/Vol] 1118.0 pg/mL Critically high <=900.0 [facility] Comment on above: Performed By: #### KARIN DARLING #### [facility] [address] [place] [address] Dr. Brianda Renee CBC AUTO DIFFon 08-24-2022 BASO # 0.0 103/ul Normal 0.0-0.1 [facility] Comment on above: Performed By: #### KARIN DARLING #### [facility] [address] [place] [address] Dr. Brianda Renee Basophils/100 WBC (Bld) 0.4 % Normal 0.2-2.0 [facility] Comment on above: Performed By: #### KARIN DARLING #### [facility] [address] [place] [address] Dr. Brianda Renee EO # 0.0 103/ul Normal 0.0-0.7 [facility] Comment on above: Performed By: #### KARIN DARLING #### [facility] [address] [place] [address] Dr. Brianda Renee Eosinophils/100 WBC (Bld) 0.2 % Critically low 0.9-7.0 [facility] Comment on above: Performed By: #### KARIN DARLING #### [facility] [address] [place] [address] Dr. Brianda Renee Erythrocyte distribution width (RBC) [Ratio] 16.0 % Critically high 11.0-15.0 [facility] Comment on above: Performed By: #### Mariela MARMOLEJO UMICRO #### [facility] [address] [place] [address] Dr. Brianda Renee Hematocrit (Bld) [Volume fraction] 35.2 % Critically low 42.0-54.0 [facility] Comment on above: Performed By: #### Mariela MARMOLEJO UMICRO #### [facility] [address] [place] [address] Dr. Brianda Renee Hemoglobin (Bld) [Mass/Vol] 11.7 g/dL Critically low 14.0-18.0 [facility] Comment on above: Performed By: #### Mariela MARMOLEJO UMICRO #### [facility] [address] [place] [address] Dr. Brianda Renee IG # 0.03 10e3/ul Normal 0.00-0.03 [facility] Comment on above: Performed By: #### Mariela MARMOLEJO UMICRO #### [facility] [address] [place] [address] Dr. Brianda Renee IG % 0.3 % Normal 0.0-0.5 [facility] Comment on above: Performed By: #### Mariela MARMOLEJO UMICRO #### [facility] [address] [place] [address] Dr. Brianda Renee LYMPH # 0.9 103/ul Critically low 1.2-3.8 [facility] Comment on above: Performed By: #### Mariela MARMOLEJO UMICRO #### [facility] [address] [place] [address] Dr. Brianda Renee Lymphocytes/100 WBC (Bld) 9.1 % Critically low 20.5-60.0 [facility] Comment on above: Performed By: #### Mariela MARMOLEJO UMICRO #### [facility] [address] [place] [address] Dr. Brianda Renee MANUAL DIFF REQ NO Normal [facility] Comment on above: Performed By: #### Mariela MARMOLEJO UMICRO #### [facility] [address] [place] [address] Dr. Brianda Renee MCH (RBC) [Entitic mass] 29.9 pg Normal 25.9-34.0 [facility] Comment on above: Performed By: #### JUNIOR DARLINGICRO #### [facility] [address] [place] [address] Dr. Brianda Renee MCHC (RBC) [Mass/Vol] 33.2 g/dL Normal 29.9-35.2 [facility] Comment on above: Performed By: #### Mariela MARMOLEJO UMICRO #### [facility] [address] [place] [address] Dr. Brianda Renee MCV (RBC) [Entitic vol] 90.0 fL Normal 80.0-94.0 [facility] Comment on above: Performed By: #### Mariela MARMOLEJO UMICRO #### [facility] [address] [place] [address] Dr. Brianda Renee MONO # 0.8 103/ul Normal 0.3-0.8 [facility] Comment on above: Performed By: #### Mariela MARMOLEJO UMICRO #### [facility] [address] [place] [address] Dr. Brianda Renee Monocytes/100 WBC (Bld) 7.6 % Normal 1.7-12.0 [facility] Comment on above: Performed By: #### Mariela MARMOLEJO UMICRO #### [facility] [address] [place] [address] Dr. Brianda Renee NEUT # 8.4 103/ul Critically high 1.4-6.[address] [facility] Comment on above: Performed By: #### Mariela MARMOLEJO UMICRO #### [facility] [address] [place] [address] Dr. Brianda Renee Neutrophils/100 WBC (Bld) 82.4 % Critically high 43.0-75.0 [facility] Comment on above: Performed By: #### Mariela MARMOLEJO UMICRO #### [facility] [address] [place] [address] Dr. Brianda Renee Platelet mean volume (Bld) [Entitic vol] 9.4 fL Critically low 9.5-13.5 [facility] Comment on above: Performed By: #### ARRON DARLINGRO #### [facility] [address] [address] [address] Brianda Renee PLT 215 103/ul Normal 150-450 [facility] Comment on above: Performed By: #### E FRANCIE UMMARTELLRO #### [facility] [address] [address] [address] Brianda Renee RBC 3.91 106/ul Critically low 4.70-6.[address] [facility] Comment on above: Performed By: #### E ARRON MARMOLEJORO #### [facility] [address] [address] [address] Brianda Renee WBC 10.1 103/ul Normal 4.0-11.0 [facility] Comment on above: Performed By: #### RARON DARLINGRO #### [facility] [address] [place] [address] Dr. Brianda Renee [facility]on SARS-CoV-2 (COVID-19) RNA JEREMIAH+probe Ql (Unsp spec) Not detected Normal NOT DETECTED [facility] Comment on above: Result Comment: When [...] for this test is supported by the Educational Psychologist of Health and Human Service's declaration that [...] used). Performed By: #### C MP #### [facility] [address] [place] [address] Dr. Brianda Renee INFLUENZA A AND B AGon 08-24 INFLUANEGH SEE BELOW Normal [facility] Comment on above: Result Comment: Nega tive for Flu A protein angiten. Infection due to Flu A cannot be ruled out. Flu A angiten in the sample may be below the detection limit of the test. Performed By: #### P SASC #### [facility] [address] [place] [address] Dr. Brianda Renee INFLUBNEGH SEE BELOW Normal [facility] Comment on above: Result Comment: Nega tive for Flu B protein antigen. Infection due to Flu B cannot be ruled out. Flu B antigen in the sample may be below the detection limit of the test. Performed By: #### P SASC #### [facility] [address] [place] [address] Dr. Brianda Renee INFLUENZA A AG Negative Normal NEGATIVE SEE COMMENT [facility] Comment on above: Performed By: #### P SASC #### [facility] [address] [place] [address] Dr. Brianda Renee INFLUENZA B AG Negative Normal NEGATIVE SEE COMMENT [facility] Comment on above: Performed By: #### P SASC #### [facility] [address] [place] [address] Dr. Brianda Renee PROF CHEM 8 (BAS METB)on Anion gap [Moles/Vol] 10.9 mmol/L Normal [facility] Comment on above: Performed By: #### KARIN DARLING #### [facility] [address] [place] [address] Dr. Brianda Renee Calcium [Mass/Vol] 8.9 mg/dL Normal 8.5-10.1 [facility] Comment on above: Performed By: #### KARIN DARLING #### [facility] [address] [place] [address] Dr. Brianda Renee Chloride [Moles/Vol] 95 mmol/L Critically low 98-107 [facility] Comment on above: Performed By: #### KARIN DARLING #### [facility] [address] [address] [address] Brianda Renee CO2 [Moles/Vol] 29.3 mmol/L Normal 21.0-32.0 [facility] Comment on above: Performed By: #### Mariela MARMOLEJO UMICRO #### [facility] [address] [address] [address] Brianda Renee Creatinine [Mass/Vol] 2.48 mg/dL Critically high 0.70-1.30 [facility] Comment on above: Performed By: #### E FRANCIE, UMICRO #### [facility] [address] [address] [address] Brianda Renee EGFR-AF COLOMBIAN 33 mL/min/1.73m2 Critically low >=60 [facility] Comment on above: Performed By: #### Mariela MARMOLEJO, UMICRO #### [facility] [address] [place] [address] Dr. Brianda Renee EGFR-NON AF COLOMBIAN 27 mL/min/1.73m2 Critically low >=60 [facility] Comment on above: Performed By: #### Mariela MARMOLEJO UMICRO #### [facility] [address] [address] [address] Brianda Renee Glucose [Mass/Vol] 180 mg/dL Critically high 74-106 [facility] Comment on above: Performed By: #### Mariela MARMOLEJO, UMICRO #### [facility] [address] [address] [address] Brianda Renee Potassium [Moles/Vol] 4.2 mmol/L Normal 3.5-5.1 [facility] Comment on above: Performed By: #### Mariela MARMOLEJO, UMICRO #### [facility] [address] [address] [address] Brianda Renee Sodium [Moles/Vol] 131 mmol/L Critically low 136-145 [facility] Comment on above: Performed By: #### Mariela MARMOLEJO, UMICRO #### [facility] [address] [address] [address] Brianda Renee Urea nitrogen [Mass/Vol] 55.0 mg/dL Critically high 7.0-18.0 [facility] Comment on above: Performed By: #### KARIN DARLING #### [facility] [address] [place] [address] Dr. Brianda Renee Urea nitrogen/Creatinine [Mass ratio] 22.2 mg/mg Normal [facility] Comment on above: Performed By: #### KARIN DARLING #### [facility] [address] [place] [address] Dr. Brianda Renee TROPONIN, HIGH SENSITIVITYon 08-24-2022 HSTROP 11.6 pg/mL Normal 4.0-76.1 [facility] Comment on above: Result Comment: CUT- OFF POINTS HAVE BEEN ESTABLISHED BASED ON THE FOURTH UNIVERSAL DEFINITIONS OF MYOCARDIAL INFARCTION. THE UPPER REFERENCE LIMIT (URL) OF TROPONIN, DEFINED THE 99TH PERCENTILE OF cTnI DISTRIBUTION IN A REFERENCE POPULATION, HAS BEEN CONFIRMED THE DECISION THRESHOLD FOR RI DIAGNOSIS. Performed By: #### KARIN DARLING #### [facility] [address] [place] [address] Dr. Brianda Renee XR CHEST 1 Von [...] TRUDI BURK Date: 2022-08-24 16:42 Normal [facility] CULTURE URINEon 07-06-2022 CULTURE URINE Culture Observations : NO GROWTH. Normal [facility] Comment on above: Performed By: #### O BSCRN #### [facility] [address] [place] [address] Dr. Brianda Renee UA RANDOM W/MICROSCOPICon BACTERIA NONE SEEN Normal NONE SEEN [facility] Comment on above: Performed By: #### U AMIC #### [facility] [address] [address] [address] Brianda Renee Bilirubin Ql (U) Negative Normal NEGATIVE The [facility] Comment on above: Performed By: #### U AMIC #### [facility] [address] [address] [address] Brianda Renee CAST NONE SEEN Normal NONE SEEN [facility] Comment on above: Performed By: #### U AMIC #### [facility] [address] [address] [address] Brianda Renee Clarity (U) CLEAR Normal CLEAR [facility] Comment on above: Performed By: #### U AMIC #### [facility] [address] [address] [address] Brianda Renee Color (U) YELLOW Normal YELLOW [facility] Comment on above: Performed By: #### U AMIC #### [facility] [address] [address] [address] Brianda Renee Crystals LM Nom (Urine sed) NONE SEEN Normal NONE SEEN [facility] Comment on above: Performed By: #### U AMIC #### [facility] [address] [address] [address] Brianda Renee Epithelial cells LM Ql (Urine sed) NONE SEEN Normal NONE SEEN /RARE [facility] Comment on above: Performed By: #### U AMIC #### [facility] [address] [address] [address] Brianda Renee Glucose Ql (U) Negative Normal NEGATIVE [facility] Comment on above: Performed By: #### U AMIC #### [facility] [address] [address] [address] Brianda Renee Hemoglobin Ql (U) Negative Normal NEGATIVE [facility] Comment on above: Performed By: #### U AMIC #### [facility] [address] [address] [address] Brianda Renee Ketones Ql (U) Negative Normal NEGATIVE [facility] Comment on above: Performed By: #### U AMIC #### [facility] [address] [address] [address] Brianda Renee LEUKOCYTES Negative Normal NEGATIVE [facility] Comment on above: Performed By: #### U AMIC #### [facility] [address] [address] [address] Brianda Renee MUCOUS NONE SEEN Normal NONE SEEN [facility] Comment on above: Performed By: #### U AMIC #### [facility] [address] [place] [address] Dr. Brianda Renee Nitrite Ql (U) Negative Normal NEGATIVE [facility] Comment on above: Performed By: #### U AMIC #### [facility] [address] [place] [address] Dr. Brianda Renee pH (U) 5.5 [pH] Normal 5-9 [facility] Comment on above: Performed By: #### U AMIC #### [facility] [address] [place] [address] Dr. Brianda Renee RBC NONE SEEN Abnormal 0-2 [facility] Comment on above: Performed By: #### U AMIC #### [facility] [address] [place] [address] Dr. Brianda Renee SPEC GRAVITY 1.030 Abnormal 1.005-<=1.[address] [facility] Comment on above: Performed By: #### U AMIC #### [facility] [address] [place] [address] Dr. Brianda Renee UA PROTEIN TRACE Normal NEGATIVE/ TRACE [facility] Comment on above: Performed By: #### U AMIC #### [facility] [address] [place] [address] Dr. Brianda Renee Urobilinogen Qn (U) 0.2 {Anisa'U}/dL Normal 0.2 - 1. 0 [facility] Comment on above: Performed By: #### U AMIC #### [facility] [address] [place] [address] Dr. Brianda Renee WBC 0-2 Abnormal NONE SEEN [facility] Comment on above: Performed By: #### U AMIC #### [facility] [address] [place] [address] Dr. Brianda Renee XR KUB 1 VIEWon [...] ROSEY GATES Date: 2022-07-03 06:53 Normal [facility] XR LSPINE MIN 4 VIEWSon 06-23 [...] ROSEY GATES Date: 2022-07-03 06:55 Normal [facility] GI PANEL (PCR)on 06-19-2022 Adenovirus F 40/41 Not detected Normal NOT DETECTED [facility] Comment on above: Performed By: #### O BSCRN #### [facility] [address] [address] [address] Brianda Renee Astrovirus Not detected Normal NOT DETECTED [facility] Comment on above: Performed By: #### O BSCRN #### [facility] [address] [address] [address] Brianda Almeida. Diff toxin A/B Not detected Normal NOT DETECTED [facility] Comment on above: Performed By: #### O BSCRN #### [facility] [address] [address] [address] Brianda Renee Campylobacter Not detected Normal NOT DETECTED [facility] Comment on above: Performed By: #### O BSCRN #### [facility] [address] [place] [address] Dr. Brianda Renee Cryptosporidium Not detected Normal NOT DETECTED [facility] Comment on above: Performed By: #### O BSCRN #### [facility] [address] [address] [address] Brianda Renee Cyclos. Cayetanensis Not detected Normal NOT DETECTED [facility] Comment on above: Performed By: #### O BSCRN #### [facility] [address] [place] [address] Dr. Brianda Renee E. Coli O157 Not Applicable Normal Not Applicable [facility] Comment on above: Performed By: #### O BSCRN #### [facility] [address] [place] [address] Dr. Brianda Rneee E. histolytica Not detected Normal NOT DETECTED [facility] Comment on above: Performed By: #### O BSCRN #### [facility] [address] [place] [address] Dr. Brianda Renee EAEC Not detected Normal NOT DETECTED [facility] Comment on above: Performed By: #### O BSCRN #### [facility] [address] [place] [address] Dr. Brianda Renee EIEC Not detected Normal NOT DETECTED [facility] Comment on above: Performed By: #### O BSCRN #### [facility] [address] [place] [address] Dr. Brianda Renee EPEC Detected Abnormal NOT DETECTED [facility] Comment on above: Performed By: #### O BSCRN #### [facility] [address] [place] [address] Dr. Brianda Renee ETEC Not detected Normal NOT DETECTED [facility] Comment on above: Performed By: #### O BSCRN #### [facility] [address] [place] [address] Dr. Brianda Renee G. Lamblia Not detected Normal NOT DETECTED [facility] Comment on above: Performed By: #### O BSCRN #### [facility] [address] [address] [address] Brianda FERRELL CONTROLS PASSED Normal [facility] Comment on above: Performed By: #### O BSCRN #### [facility] [address] [address] [address] Brianda [place] MARIA HEADER GI PANEL BACTERIA Normal [facility] Comment on above: Performed By: #### O BSCRN #### [facility] [address] [address] [address] Brianda GRAJEDA ECOLI GI PANEL DIARRHEAGENIC E.COLI / SHIGELLA Normal [facility] Comment on above: Performed By: #### O BSCRN #### [facility] [address] [address] [address] Brianda GRAJEDA INFO SEE BELOW Normal [facility] Comment on above: Result Comment: EAEC - Enteroaggregative E. Coli EPEC- Enteropathogenic E. Coli ETEC- Enterotoxigenic E. Coli lt/st STEC- Shigella-like toxin-producing E. Coli stx1/stx2 EIEC- Shigella/Enteroinvasive E. Coli Performed By: #### O BSCRN #### [facility] [address] [place] [address] Dr. Brianda GRAJEDA PARASITES GI PANEL PARASITES Normal [facility] Comment on above: Performed By: #### O BSCRN #### [facility] [address] [place] [address] Dr. Brianda GRAJEDA VIRUS GI PANEL VIRUSES Normal [facility] Comment on above: Performed By: #### O BSCRN #### [facility] [address] [address] [address] Brianda Renee Norovirus GI/GII Not detected Normal NOT DETECTED [facility] Comment on above: Performed By: #### O BSCRN #### [facility] [address] [address] [address] Brianda Renee P. Shigelloides Not detected Normal NOT DETECTED [facility] Comment on above: Performed By: #### O BSCRN #### [facility] [address] [place] [address] Dr. Brianda Renee Rotavirus A Not detected Normal NOT DETECTED [facility] Comment on above: Performed By: #### O BSCRN #### [facility] [address] [place] [address] Dr. Brianda Renee Salmonella Not detected Normal NOT DETECTED [facility] Comment on above: Performed By: #### O BSCRN #### [facility] [address] [place] [address] Dr. Brianda Renee Sapovirus Not detected Normal NOT DETECTED [facility] Comment on above: Performed By: #### O BSCRN #### [facility] [address] [place] [address] Dr. Brianda Renee STEC Not detected Normal NOT DETECTED [facility] Comment on above: Performed By: #### O BSCRN #### [facility] [address] [place] [address] Dr. Brianda Renee Vibrio Not detected Normal NOT DETECTED [facility] Comment on above: Performed By: #### O BSCRN #### [facility] [address] [place] [address] Dr. Brianda Renee Vibrio Cholera Not detected Normal NOT DETECTED [facility] Comment on above: Performed By: #### O BSCRN #### [facility] [address] [place] [id number] Dr. Brianda Renee Y. Enterocolitica Not detected Normal NOT DETECTED [facility] Comment on above: Performed By: #### O BSCRN #### [facility] [address] [place] [address] Dr. Brianda Renee AMYLASEon 06-17-2022 Amylase [Catalytic activity/Vol] 78 U/L Normal 25-115 [facility] Comment on above: Performed By: #### C MP #### [facility] [address] [place] [address] Dr. Brianda Renee CBC AUTO DIFFon 06-17-2022 BASO # 0.1 103/ul Normal 0.0-0.1 [facility] Comment on above: Performed By: #### O BSCRN #### [facility] [address] [address] [address] Brianda Renee Basophils/100 WBC (Bld) 0.4 % Normal 0.2-2.0 [facility] Comment on above: Performed By: #### O BSCRN #### [facility] [address] [address] [address] Brianda Renee EO # 0.2 103/ul Normal 0.0-0.7 [facility] Comment on above: Performed By: #### O BSCRN #### [facility] [address] [address] [address] Brianda Renee Eosinophils/100 WBC (Bld) 1.6 % Normal 0.9-7.0 [facility] Comment on above: Performed By: #### O BSCRN #### [facility] [address] [place] [address] Dr. Brianda Renee Erythrocyte distribution width (RBC) [Ratio] 13.7 % Normal 11.0-15.0 [facility] Comment on above: Performed By: #### O BSCRN #### [facility] [address] [place] [address] Dr. Brianda Renee Hematocrit (Bld) [Volume fraction] 42.2 % Normal 42.0-54.0 [facility] Comment on above: Performed By: #### O BSCRN #### [facility] [address] [place] [address] Dr. Brianda Renee Hemoglobin (Bld) [Mass/Vol] 14.2 g/dL Normal 14.0-18.0 [facility] Comment on above: Performed By: #### O BSCRN #### [facility] [address] [address] [address] Brianda Renee IG # 0.16 10e3/ul Critically high 0.00-0.03 [facility] Comment on above: Performed By: #### O BSCRN #### [facility] [address] [address] [address] Brianda Renee IG % 1.2 % Critically high 0.0-0.[address] [facility] Comment on above: Performed By: #### O BSCRN #### [facility] [address] [address] [address] Brianda Renee LYMPH # 4.0 103/ul Critically high 1.2-3.8 [facility] Comment on above: Performed By: #### O BSCRN #### [facility] [address] [address] [address] Brianda Renee Lymphocytes/100 WBC (Bld) 29.8 % Normal 20.5-60.0 [facility] Comment on above: Performed By: #### O BSCRN #### [facility] [address] [address] [address] Brianda Renee MANUAL DIFF REQ NO Normal [facility] Comment on above: Performed By: #### O BSCRN #### [facility] [address] [address] [address] Brianda Renee MCH (RBC) [Entitic mass] 30.0 pg Normal 25.9-34.0 [facility] Comment on above: Performed By: #### O BSCRN #### [facility] [address] [address] [address] Brianda Renee MCHC (RBC) [Mass/Vol] 33.6 g/dL Normal 29.9-35.2 [facility] Comment on above: Performed By: #### O BSCRN #### [facility] [address] [address] [address] Brianda Renee MCV (RBC) [Entitic vol] 89.2 fL Normal 80.0-94.0 [facility] Comment on above: Performed By: #### O BSCRN #### [facility] [address] [address] [address] Brianda Renee MONO # 1.4 103/ul Critically high 0.3-0.8 [facility] Comment on above: Performed By: #### O BSCRN #### [facility] [address] [address] [address] Brianda Renee Monocytes/100 WBC (Bld) 10.4 % Normal 1.7-12.0 [facility] Comment on above: Performed By: #### O BSCRN #### [facility] [address] [place] [address] Dr. Brianda Renee NEUT # 7.5 103/ul Critically high 1.4-6.5 [facility] Comment on above: Performed By: #### O BSCRN #### [facility] [address] [place] [address] Dr. Brianda Renee Neutrophils/100 WBC (Bld) 56.6 % Normal 43.0-75.0 [facility] Comment on above: Performed By: #### O BSCRN #### [facility] [address] [place] [address] Dr. Brianda Renee Platelet mean volume (Bld) [Entitic vol] 9.2 fL Critically low 9.5-13.5 [facility] Comment on above: Performed By: #### O BSCRN #### [facility] [address] [place] [address] Dr. Brianda Renee PLT 316 103/ul Normal 150-450 [facility] Comment on above: Performed By: #### O BSCRN #### [facility] [address] [place] [address] Dr. Brianda Renee RBC 4.73 106/ul Normal 4.70-6.10 [facility] Comment on above: Performed By: #### O BSCRN #### [facility] [address] [place] [address] Dr. Brianda Renee WBC 13.3 103/ul Critically high 4.0-11.0 [facility] Comment on above: Performed By: #### O BSCRN #### [facility] [address] [place] [address] Dr. Brianda Renee ER URINE PROFILEon 2 Bilirubin Ql (U) Negative Normal NEGATIVE [facility] Comment on above: Performed By: #### C MP #### [facility] [address] [place] [address] Dr. Brianda Renee Clarity (U) CLEAR Normal CLEAR [facility] Comment on above: Performed By: #### C MP #### [facility] [address] [address] [address] Brianda Renee Color (U) YELLOW Normal YELLOW [facility] Comment on above: Performed By: #### C MP #### [facility] [address] [address] [address] Brianda HEIN A micrscopic examination will be performed if indicated. Normal [facility] Comment on above: Performed By: #### C MP #### [facility] [address] [address] [address] Brianda Renee Glucose Ql (U) 100 mg/dl Abnormal NEGATIVE [facility] Comment on above: Performed By: #### C MP #### [facility] [address] [place] [address] Dr. Brianda Renee Hemoglobin Ql (U) Negative Normal NEGATIVE [facility] Comment on above: Performed By: #### C MP #### [facility] [address] [address] [address] Brianda Renee Ketones Ql (U) Negative Normal NEGATIVE [facility] Comment on above: Performed By: #### C MP #### [facility] [address] [place] [address] Dr. Brianda Renee LEUKOCYTES Negative Normal NEGATIVE [facility] Comment on above: Performed By: #### C MP #### [facility] [address] [place] [address] Dr. Brianda Renee Nitrite Ql (U) Negative Normal NEGATIVE [facility] Comment on above: Performed By: #### C MP #### [facility] [address] [address] [address] Brianda Renee pH (U) 5.5 [pH] Normal 5-9 [facility] Comment on above: Performed By: #### C MP #### [facility] [address] [place] [address] Dr. Brianda Renee SPEC GRAVITY 1.025 Normal 1.005-<=1.025 [facility] Comment on above: Performed By: #### C MP #### [facility] [address] [place] [address] Dr. Brianda Renee UA PROTEIN Negative Normal NEGATIVE/ TRACE [facility] Comment on above: Performed By: #### C MP #### [facility] [address] [place] [address] Dr. Brianda Renee UR MICRO IND NOT INDICATED Normal [facility] Comment on above: Performed By: #### C MP #### [facility] [address] [place] [address] Dr. Brianda Renee Urobilinogen Qn (U) 0.2 {Anisa'U}/dL Normal 0.2 - 1. 0 [facility] Comment on above: Performed By: #### C MP #### [facility] [address] [place] [address] Dr. Brianda Renee LIPASEon 06-17-2022 Lipase [Catalytic activity/Vol] 185.0 U/L Normal 73.0-393.0 [facility] Comment on above: Performed By: #### C MP #### [facility] [address] [place] [address] Dr. Brianda Renee PROF 14(COMP METB)on 022 Albumin [Mass/Vol] 3.4 g/dL Normal 3.4-5.0 [facility] Comment on above: Performed By: #### C MP #### [facility] [address] [place] [address] Dr. Brianda Renee Albumin/Globulin [Mass ratio] 0.8 {ratio} Normal [facility] Comment on above: Performed By: #### C MP #### [facility] [address] [place] [address] Dr. Brianda Renee ALP [Catalytic activity/Vol] 87 U/L Normal 46-116 [facility] Comment on above: Performed By: #### C MP #### [facility] [address] [place] [address] Dr. Brianda Renee ALT [Catalytic activity/Vol] 179 U/L Critically high 16-63 [facility] Comment on above: Performed By: #### C MP #### [facility] [address] [address] [address] Brianda Renee Anion gap [Moles/Vol] 9.6 mmol/L Normal [facility] Comment on above: Performed By: #### C MP #### [facility] [address] [address] [address] Brianda Renee AST [Catalytic activity/Vol] 78 U/L Critically high 15-37 [facility] Comment on above: Performed By: #### C MP #### [facility] [address] [address] [address] Brianda Renee Bilirubin [Mass/Vol] 0.3 mg/dL Normal 0.2-1.0 [facility] Comment on above: Performed By: #### C MP #### [facility] [address] [place] [address] Dr. Brianda Renee Calcium [Mass/Vol] 9.4 mg/dL Normal 8.5-10.1 [facility] Comment on above: Performed By: #### C MP #### [facility] [address] [place] [address] Dr. Brianda Renee Chloride [Moles/Vol] 99 mmol/L Normal 98-107 [facility] Comment on above: Performed By: #### C MP #### [facility] [address] [place] [address] Dr. Brianda Renee CO2 [Moles/Vol] 30.6 mmol/L Normal 21.0-32.0 [facility] Comment on above: Performed By: #### C MP #### [facility] [address] [address] [address] Brianda Renee Creatinine [Mass/Vol] 1.56 mg/dL Critically high 0.70-1.30 [facility] Comment on above: Performed By: #### C MP #### [facility] [address] [place] [address] Dr. Brianda Renee EGFR-AF COLOMBIAN 56 mL/min/1.73m2 Critically low >=60 [facility] Comment on above: Performed By: #### C MP #### [facility] [address] [place] [address] Dr. Brianda Renee EGFR-NON AF COLOMBIAN 46 mL/min/1.73m2 Critically low >=60 [facility] Comment on above: Performed By: #### C MP #### [facility] [address] [address] [address] Brianda Renee Globulin (S) [Mass/Vol] 4.4 g/dL Normal [facility] Comment on above: Performed By: #### C MP #### [facility] [address] [address] [address] Brianda Renee Glucose [Mass/Vol] 118 mg/dL Critically high 74-106 [facility] Comment on above: Performed By: #### C MP #### [facility] [address] [address] [address] Brianda Renee Potassium [Moles/Vol] 4.2 mmol/L Normal 3.5-5.1 [facility] Comment on above: Performed By: #### C MP #### [facility] [address] [address] [address] Brianda Renee Protein [Mass/Vol] 7.8 g/dL Normal 6.4-8.2 [facility] Comment on above: Performed By: #### C MP #### [facility] [address] [address] [address] Brianda Renee Sodium [Moles/Vol] 135 mmol/L Critically low 136-145 [facility] Comment on above: Performed By: #### C MP #### [facility] [address] [address] [address] Brianda Renee Urea nitrogen [Mass/Vol] 44.0 mg/dL Critically high 7.0-18.0 [facility] Comment on above: Performed By: #### C MP #### [facility] [address] [place] [address] Dr. Brianda Renee Urea nitrogen/Creatinine [Mass ratio] 28.2 mg/mg Normal [facility] Comment on above: Performed By: #### C MP #### [facility] [address] [address] [address] Brianda Renee XR ABD FLAT UP_PA González 10-26 -2022 XR ABD FLAT UP_PA CH EXAMINATION: XR [...] obstruction or suspicious findings. Electronically authenticated by: ROSEY GATES Date: 2022-06-17 10:06 Normal [facility] CBC AUTO DIFFon 06-14-2022 BASO # 0.0 103/ul Normal 0.0-0.1 [facility] Comment on above: Performed By: #### KARIN DARLING #### [facility] [address] [place] [address] Dr. Brianda Renee Basophils/100 WBC (Bld) 0.4 % Normal 0.2-2.0 [facility] Comment on above: Performed By: #### KARIN DARLING #### [facility] [address] [place] [address] Dr. Brianda Renee EO # 0.1 103/ul Normal 0.0-0.7 [facility] Comment on above: Performed By: #### KARIN DARLING #### [facility] [address] [address] [address] Brianda Renee Eosinophils/100 WBC (Bld) 1.5 % Normal 0.9-7.0 [facility] Comment on above: Performed By: #### KARIN DARLING #### [facility] [address] [place] [address] Dr. Brianda Renee Erythrocyte distribution width (RBC) [Ratio] 13.6 % Normal 11.0-15.0 [facility] Comment on above: Performed By: #### KARIN DARLING #### [facility] [address] [place] [address] Dr. Brianda Renee Hematocrit (Bld) [Volume fraction] 41.1 % Critically low 42.0-54.0 [facility] Comment on above: Performed By: #### Mariela MARMOLEJO UMICRO #### [facility] [address] [place] [address] Dr. Brianda Renee Hemoglobin (Bld) [Mass/Vol] 14.0 g/dL Normal 14.0-18.0 [facility] Comment on above: Performed By: #### Mariela MARMOLEJO, UMICRO #### [facility] [address] [place] [address] Dr. Brianda Renee IG # 0.03 10e3/ul Normal 0.00-0.03 [facility] Comment on above: Performed By: #### Mariela MAROMLEJO UMICRO #### [facility] [address] [place] [address] Dr. Brianda Renee IG % 0.4 % Normal 0.0-0.5 [facility] Comment on above: Performed By: #### Mariela MARMOLEJO UMICRO #### [facility] [address] [place] [address] Dr. Brianda Renee LYMPH # 1.9 103/ul Normal 1.2-3.8 [facility] Comment on above: Performed By: #### Mariela MARMOLEJO, UMICRO #### [facility] [address] [place] [address] Dr. Brianda Renee Lymphocytes/100 WBC (Bld) 24.4 % Normal 20.5-60.0 [facility] Comment on above: Performed By: #### Mariela MARMOLEJO, UMICRO #### [facility] [address] [place] [address] Dr. Brianda Renee MANUAL DIFF REQ NO Normal [facility] Comment on above: Performed By: #### Mariela MARMOLEJO, UMICRO #### [facility] [address] [place] [address] Dr. Brianda Renee MCH (RBC) [Entitic mass] 29.9 pg Normal 25.9-34.0 [facility] Comment on above: Performed By: #### ARRON DARLINGRO #### [facility] [address] [place] [address] Dr. Brianda Renee MCHC (RBC) [Mass/Vol] 34.1 g/dL Normal 29.9-35.2 [facility] Comment on above: Performed By: #### ARRON DARLINGRO #### [facility] [address] [place] [address] Dr. Brianda Renee MCV (RBC) [Entitic vol] 87.6 fL Normal 80.0-94.0 [facility] Comment on above: Performed By: #### ARRON DARLINGRO #### [facility] [address] [place] [address] Dr. Brianda Renee MONO # 0.8 103/ul Normal 0.3-0.8 [facility] Comment on above: Performed By: #### ARRON DARLINGRO #### [facility] [address] [place] [address] Dr. Brianda Renee Monocytes/100 WBC (Bld) 10.4 % Normal 1.7-12.0 [facility] Comment on above: Performed By: #### ARRON DARLINGRO #### [facility] [address] [place] [address] Dr. Brianda Renee NEUT # 5.0 103/ul Normal 1.4-6.5 [facility] Comment on above: Performed By: #### ARRON DARLINGRO #### [facility] [address] [place] [address] Dr. Brianda Renee Neutrophils/100 WBC (Bld) 62.9 % Normal 43.0-75.0 [facility] Comment on above: Performed By: #### ARRON DARLINGRO #### [facility] [address] [place] [address] Dr. Brianda Renee Platelet mean volume (Bld) [Entitic vol] 9.5 fL Normal 9.5-13.5 [facility] Comment on above: Performed By: #### ARRON DARLINGRO #### [facility] [address] [address] [address] Brianda Renee PLT 297 103/ul Normal 150-450 [facility] Comment on above: Performed By: #### KARIN DARLING #### [facility] [address] [address] [address] Brianda Renee RBC 4.69 106/ul Critically low 4.70-6.[address] [facility] Comment on above: Performed By: #### KARIN DARLING #### [facility] [address] [address] [address] Brianda Renee WBC 7.9 103/ul Normal 4.0-11.0 [facility] Comment on above: Performed By: #### KARIN DARLING #### [facility] [address] [address] LSPINE WO CONon [...] PAULIE NEWMAN Date: 2022-06-14 19:54 Normal [facility] Covid-19 PCR (CVDTB)on 05-24 SARS-CoV-2 (COVID-19) RNA JEREMIAH+probe Ql (Unsp spec) Not detected Normal NOT DETECTED [facility] Comment on above: Result Comment: When [...] for this test is supported by the [place] of [employer] and Human Service's declaration that [...] used). Performed By: #### C MP #### [facility] [address] [place] [address] Dr. Brianda Renee ER URINE PROFILEon Bilirubin Ql (U) Negative Normal NEGATIVE [facility] Comment on above: Performed By: #### KARIN DARLING #### [facility] [address] [place] [address] Dr. Brianda Renee Clarity (U) CLEAR Normal CLEAR [facility] Comment on above: Performed By: #### KARIN DARLING #### [facility] [address] [place] [address] Dr. Brianda Renee Color (U) LT. YELLOW Normal YELLOW [facility] Comment on above: Performed By: #### KARIN DARLING #### [facility] [address] [place] [address] Dr. Brianda Renee ERUAHD A micrscopic examination will be performed if indicated. Normal [facility] Comment on above: Performed By: #### KARIN DARLING #### [facility] [address] [place] [address] Dr. Brianda Renee Glucose Ql (U) >1000 Abnormal NEGATIVE [facility] Comment on above: Performed By: #### ARRON DARLINGRO #### [facility] [address] [place] [address] Dr. Brianda Renee Hemoglobin Ql (U) TRACE-INTACT Abnormal NEGATIVE [facility] Comment on above: Performed By: #### JUNIOR DARLINGICRO #### [facility] [address] [place] [address] Dr. Brianda Renee Ketones Ql (U) Negative Normal NEGATIVE [facility] Comment on above: Performed By: #### ARRON DARLINGRO #### [facility] [address] [place] [address] Dr. Brianda Renee LEUKOCYTES Negative Normal NEGATIVE [facility] Comment on above: Performed By: #### ARRON DARLINGRO #### [facility] [address] [place] [address] Dr. Brianda Renee Nitrite Ql (U) Negative Normal NEGATIVE [facility] Comment on above: Performed By: #### ARRON DARLINGRO #### [facility] [address] [place] [address] Dr. Brianda Renee pH (U) 6.0 [pH] Normal 5-9 [facility] Comment on above: Performed By: #### ARRON DARLINGRO #### [facility] [address] [place] [address] Dr. Brianda Renee SPEC GRAVITY 1.015 Normal 1.005-<=1.025 [facility] Comment on above: Performed By: #### JUNIOR DARLINGICRO #### [facility] [address] [place] [address] Dr. Brianda Renee UA PROTEIN Negative Normal NEGATIVE/ TRACE [facility] Comment on above: Performed By: #### JUNIOR DARLINGICRO #### [facility] [address] [place] [address] Dr. Brianda Renee UR MICRO IND INDICATED Normal [facility] Comment on above: Performed By: #### E KARIN MARMOLEJO #### [facility] [address] [place] [address] Dr. Brianda Renee Urobilinogen Qn (U) 0.2 {Anisa'U}/dL Normal 0.2 - 1. 0 [facility] Comment on above: Performed By: #### E KARIN MARMOLEJO #### [facility] [address] [place] [address] Dr. Brianda Renee PROF 14(COMP METB)on 022 Albumin [Mass/Vol] 3.1 g/dL Critically low 3.4-5.0 [facility] Comment on above: Performed By: #### C MP #### [facility] [address] [place] [address] Dr. Brianda Renee Albumin/Globulin [Mass ratio] 0.7 {ratio} Normal [facility] Comment on above: Performed By: #### C MP #### [facility] [address] [place] [address] Dr. Brianda Renee ALP [Catalytic activity/Vol] 75 U/L Normal 46-116 [facility] Comment on above: Performed By: #### C MP #### [facility] [address] [place] [address] Dr. Brianda Renee ALT [Catalytic activity/Vol] 259 U/L Critically high 16-63 [facility] Comment on above: Performed By: #### C MP #### [facility] [address] [place] [address] Dr. Brianda Renee Anion gap [Moles/Vol] 8.9 mmol/L Normal [facility] Comment on above: Performed By: #### C MP #### [facility] [address] [place] [address] Dr. Brianda Renee AST [Catalytic activity/Vol] 161 U/L Critically high 15-37 [facility] Comment on above: Performed By: #### C MP #### [facility] [address] [place] [address] Dr. Brianda Renee Bilirubin [Mass/Vol] 0.4 mg/dL Normal 0.2-1.0 [facility] Comment on above: Performed By: #### C MP #### [facility] [address] [address] [address] Brianda Renee Calcium [Mass/Vol] 9.6 mg/dL Normal 8.5-10.1 [facility] Comment on above: Performed By: #### C MP #### [facility] [address] [address] [address] Brianda Renee Chloride [Moles/Vol] 96 mmol/L Critically low 98-107 [facility] Comment on above: Performed By: #### C MP #### [facility] [address] [address] [address] Brianda Renee CO2 [Moles/Vol] 31.8 mmol/L Normal 21.0-32.0 [facility] Comment on above: Performed By: #### C MP #### [facility] [address] [address] [address] Brianda Renee Creatinine [Mass/Vol] 2.05 mg/dL Critically high 0.70-1.30 [facility] Comment on above: Performed By: #### C MP #### [facility] [address] [address] [address] Brianda Renee EGFR-AF COLOMBIAN 41 mL/min/1.73m2 Critically low >=60 [facility] Comment on above: Performed By: #### C MP #### [facility] [address] [address] [address] Brianda Renee EGFR-NON AF COLOMBIAN 34 mL/min/1.73m2 Critically low >=60 [facility] Comment on above: Performed By: #### C MP #### [facility] [address] [address] [address] Brianda Renee Globulin (S) [Mass/Vol] 4.5 g/dL Normal [facility] Comment on above: Performed By: #### C MP #### [facility] [address] [address] [address] Brianda Renee Glucose [Mass/Vol] 267 mg/dL Critically high 74-106 [facility] Comment on above: Performed By: #### C MP #### [facility] [address] [address] [address] Brianda Renee Potassium [Moles/Vol] 3.7 mmol/L Normal 3.5-5.1 [facility] Comment on above: Performed By: #### C MP #### [facility] [address] [address] [address] Brianda Renee Protein [Mass/Vol] 7.6 g/dL Normal 6.4-8.2 [facility] Comment on above: Performed By: #### C MP #### [facility] [address] [address] [address] Brianda Renee Sodium [Moles/Vol] 133 mmol/L Critically low 136-145 [facility] Comment on above: Performed By: #### C MP #### [facility] [address] [place] [address] Dr. Brianda Renee Urea nitrogen [Mass/Vol] 58.0 mg/dL Critically high 7.0-18.0 [facility] Comment on above: Performed By: #### C MP #### [facility] [address] [address] [address] Brianda Renee Urea nitrogen/Creatinine [Mass ratio] 28.3 mg/mg Normal [facility] Comment on above: Performed By: #### C MP #### [facility] [address] [place] [address] Dr. Brianda Renee URINE MICROSCOPIC ONLYon BACTERIA TRACE Abnormal NONE SEEN [facility] Comment on above: Performed By: #### Mariela MARMOLEJO UMICRO #### [facility] [address] [place] [address] Dr. Brianda Renee Bacteria identified Cx Nom (U) NOT INDICATED Normal [facility] Comment on above: Performed By: #### Mariela MARMOLEJO UMICRO #### [facility] [address] [address] [address] Brianda Renee CAST SEEN Abnormal NONE SEEN [facility] Comment on above: Performed By: #### Mariela MARMOLEJO UMICRO #### [facility] [address] [place] [address] Dr. Brianda Renee Crystals LM Nom (Urine sed) NONE SEEN Normal NONE SEEN [facility] Comment on above: Performed By: #### Mariela MARMOLEJO UMICRO #### [facility] [address] [place] [address] Dr. Brianda Renee Epithelial cells LM Ql (Urine sed) RARE Normal NONE SEEN /RARE [facility] Comment on above: Performed By: #### Mariela MARMOLEJO UMICRO #### [facility] [address] [place] [address] Dr. Brianda Renee HYALINE CAST RARE Normal [facility] Comment on above: Performed By: #### Mariela MARMOLEJO UMICRO #### [facility] [address] [place] [address] Dr. Brianda Renee MUCOUS NONE SEEN Normal NONE SEEN [facility] Comment on above: Performed By: #### Mariela MARMOLEJO UMICRO #### [facility] [address] [place] [address] Dr. Brianda Renee RBC 0-2 Normal 0-2 [facility] Comment on above: Performed By: #### Mariela MARMOLEJO UMICRO #### [facility] [address] [place] [address] Dr. Brianda Renee WBC 0-2 Abnormal NONE SEEN [facility] Comment on above: Performed By: #### Mariela MARMOLEJO UMICRO #### [facility] [address] [place] [address] Dr. Brianda Renee CBC AUTO DIFFon 02-11-2022 BASO # 0.1 103/ul Normal 0.0-0.1 [facility] Comment on above: Performed By: #### Mariela MARMOLEJO UMICRO #### [facility] [address] [place] [address] Dr. Brianda Renee Basophils/100 WBC (Bld) 0.7 % Normal 0.2-2.0 [facility] Comment on above: Performed By: #### Mariela MARMOLEJO UMICRO #### [facility] [address] [place] [address] Dr. Brianda Renee EO # 0.2 103/ul Normal 0.0-0.7 [facility] Comment on above: Performed By: #### KARIN DARLING #### [facility] [address] [place] [address] Dr. Brianda Renee Eosinophils/100 WBC (Bld) 2.0 % Normal 0.9-7.0 [facility] Comment on above: Performed By: #### ARRON DARLINGRO #### [facility] [address] [place] [address] Dr. Brianda Rneee Erythrocyte distribution width (RBC) [Ratio] 13.6 % Normal 11.0-15.0 [facility] Comment on above: Performed By: #### KARIN DARLING #### [facility] [address] [place] [address] Dr. Brianda Renee Hematocrit (Bld) [Volume fraction] 44.0 % Normal 42.0-54.0 [facility] Comment on above: Performed By: #### ARRON DARLINGRO #### [facility] [address] [place] [address] Dr. Brianda Renee Hemoglobin (Bld) [Mass/Vol] 14.7 g/dL Normal 14.0-18.0 [facility] Comment on above: Performed By: #### ARRON DARLINGRO #### [facility] [address] [place] [address] Dr. Brianda Renee IG # 0.02 10e3/ul Normal 0.00-0.03 [facility] Comment on above: Performed By: #### ARRON DARLINGRO #### [facility] [address] [place] [address] Dr. Brianda Renee IG % 0.2 % Normal 0.0-0.5 [facility] Comment on above: Performed By: #### ARRON DARLINGRO #### [facility] [address] [place] [address] Dr. Brianda Renee LYMPH # 2.6 103/ul Normal 1.2-3.8 [facility] Comment on above: Performed By: #### Mariela MARMOLEJO UMICRO #### [facility] [address] [place] [address] Dr. Brianda Renee Lymphocytes/100 WBC (Bld) 25.2 % Normal 20.5-60.0 [facility] Comment on above: Performed By: #### Mariela MARMOLEJO UMICRO #### [facility] [address] [place] [address] Dr. Brianda Renee MANUAL DIFF REQ NO Normal [facility] Comment on above: Performed By: #### E FRANCIE UMICRO #### [facility] [address] [place] [address] Dr. Brianda Renee MCH (RBC) [Entitic mass] 29.5 pg Normal 25.9-34.0 [facility] Comment on above: Performed By: #### Mariela MARMOLEJO UMICRO #### [facility] [address] [place] [address] Dr. Brianda Renee MCHC (RBC) [Mass/Vol] 33.4 g/dL Normal 29.9-35.2 [facility] Comment on above: Performed By: #### Mariela MARMOLEJO UMICRO #### [facility] [address] [place] [address] Dr. Brianda Renee MCV (RBC) [Entitic vol] 88.2 fL Normal 80.0-94.0 [facility] Comment on above: Performed By: #### Mariela MARMOLEJO UMICRO #### [facility] [address] [place] [address] Dr. Brianda Renee MONO # 1.0 103/ul Critically high 0.3-0.[address] [facility] Comment on above: Performed By: #### Mariela MARMOLEJO UMICRO #### [facility] [address] [place] [address] Dr. Brianda Renee Monocytes/100 WBC (Bld) 9.9 % Normal 1.7-12.0 [facility] Comment on above: Performed By: #### Mariela MARMOLEJO UMICRO #### [facility] [address] [place] [address] Dr. Brianda Renee NEUT # 6.5 103/ul Normal 1.4-6.5 [facility] Comment on above: Performed By: #### KARIN DARLING #### [facility] [address] [place] [address] Dr. Brianda Renee Neutrophils/100 WBC (Bld) 62.0 % Normal 43.0-75.0 [facility] Comment on above: Performed By: #### ARRON DARLINGRO #### [facility] [address] [place] [address] Dr. Brianda Renee Platelet mean volume (Bld) [Entitic vol] 9.2 fL Critically low 9.5-13.5 [facility] Comment on above: Performed By: #### KARIN DARLING #### [facility] [address] [place] [address] Dr. Brianda Renee PLT 273 103/ul Normal 150-450 [facility] Comment on above: Performed By: #### ARRON DARLINGRO #### [facility] [address] [place] [address] Dr. Brianda Renee RBC 4.99 106/ul Normal 4.70-6.10 [facility] Comment on above: Performed By: #### ARRON DARLINGRO #### [facility] [address] [place] [address] Dr. Brianda Renee WBC 10.4 103/ul Normal 4.0-11.0 [facility] Comment on above: Performed By: #### ARRON DARLINGRO #### [facility] [address] [place] [address] Dr. Brianda Renee FREE T3on 02-11-2022 FREE T3 2.42 pg/mlL Normal 2.18-3.98 [facility] Comment on above: Performed By: #### P SASC #### [facility] [address] [place] [address] Dr. Brianda Renee GLYCOHEMOGLOBIN A1Con 2021 ADA RECOMMENDATION SEE BELOW Normal [facility] Comment on above: Result Comment: ADA RECOMMENDED LIMIT 4.0 - 6.0 ADA THERAPEUTIC TARGET < 7.0 ACTION SUGGESTED > 7.0 Performed By: #### C MP #### [facility] [address] [address] [address] Brianda Renee Glucose [Mass/Vol] 146 mg/dL Normal [facility] Comment on above: Performed By: #### C MP #### [facility] [address] [address] [address] Brianda Renee HbA1c (Bld) [Mass fraction] 6.7 % Critically high 4.5-6.2 [facility] Comment on above: Performed By: #### C MP #### [facility] [address] [address] [address] Brianda Renee LIPID PROFILEon 02-11-2022 CHOL-HDL RATIO NORM SEE BELOW Normal [facility] Comment on above: Result Comment: 3.3 - 4.4 LOW RISK 4.4 - 7.1 AVERAGE RISK 7.1 - 11.0 MODERATE RISK >11.0 HIGH RISK Performed By: #### P SASC #### [facility] [address] [place] [address] Dr. Brianda Renee Cholesterol [Mass/Vol] 135 mg/dL Normal <=200 [facility] Comment on above: Performed By: #### P SASC #### [facility] [address] [place] [address] Dr. Brianda Renee Cholesterol in HDL [Mass/Vol] 52 mg/dL Normal 40-60 [facility] Comment on above: Performed By: #### P SASC #### [facility] [address] [address] [address] Brianda Renee Cholesterol in LDL [Mass/Vol] 66.4 mg/dL Normal [facility] Comment on above: Performed By: #### P SASC #### [facility] [address] [place] [address] Dr. Brianda Renee Cholesterol.total/Ch olesterol in HDL [Mass ratio] 2.6 {ratio} Normal [facility] Comment on above: Performed By: #### P SASC #### [facility] [address] [place] [address] Dr. Brianda Renee HDL NORMAL > or = 60 mg/dl - LO W CARDIOVASCULAR RISK <40 mg/dl - HIGH CARDIOVASCULAR RISK Normal [facility] Comment on above: Performed By: #### P SASC #### [facility] [address] [address] [address] Brianda Renee LDL CALC NORMAL SEE BELOW Normal [facility] Comment on above: Result Comment: <100 mg/dl OPTIMAL 100 - 129 mg/dl NEAR OR ABOVE OPTIMAL 130 - 159 mg/dl BORDERLINE HIGH 160 - 189 mg/dl HIGH >190 mg/dl VERY HIGH Performed By: #### P SASC #### [facility] [address] [address] [address] Brianda Renee Triglyceride [Mass/Vol] 83 mg/dL Normal <=150 [facility] Comment on above: Performed By: #### P SASC #### [facility] [address] [address] [address] Brianda Renee VLDL CALC 16.6 mg/dL Normal [facility] Comment on above: Performed By: #### P SASC #### [facility] [address] [address] [address] Brianda Renee OCC BLD IMMUNO SCREENon 01-22 OCCULT BLOOD Negative Normal NEGATIVE [facility] Comment on above: Performed By: #### O BSCRN #### [facility] [address] [address] [address] Brianda Renee PROF 14(COMP METB)on 022 Albumin [Mass/Vol] 3.8 g/dL Normal 3.4-5.0 [facility] Comment on above: Performed By: #### P SASC #### [facility] [address] [address] [address] Brianda Renee Albumin/Globulin [Mass ratio] 1.0 {ratio} Normal [facility] Comment on above: Performed By: #### P SASC #### [facility] [address] [address] [address] Brianda Renee ALP [Catalytic activity/Vol] 64 U/L Normal 46-116 [facility] Comment on above: Performed By: #### P SASC #### [facility] [address] [address] [address] Brianda Renee ALT [Catalytic activity/Vol] 38 U/L Normal 16-63 [facility] Comment on above: Performed By: #### P SASC #### [facility] [address] [address] [address] Brianda Renee Anion gap [Moles/Vol] 13.0 mmol/L Normal [facility] Comment on above: Performed By: #### P SASC #### [facility] [address] [address] [address] Brianda Renee AST [Catalytic activity/Vol] 23 U/L Normal 15-37 [facility] Comment on above: Performed By: #### P SASC #### [facility] [address] [address] [address] Brianda Renee Bilirubin [Mass/Vol] 0.5 mg/dL Normal 0.2-1.0 [facility] Comment on above: Performed By: #### P SASC #### [facility] [address] [address] [address] Brianda Renee Calcium [Mass/Vol] 9.4 mg/dL Normal 8.5-10.1 [facility] Comment on above: Performed By: #### P SASC #### [facility] [address] [address] [address] Brianda Renee Chloride [Moles/Vol] 99 mmol/L Normal 98-107 [facility] Comment on above: Performed By: #### P SASC #### [facility] [address] [address] [address] Brianda Renee CO2 [Moles/Vol] 30.1 mmol/L Normal 21.0-32.0 [facility] Comment on above: Performed By: #### P SASC #### [facility] [address] [address] [address] Brianda Renee Creatinine [Mass/Vol] 1.13 mg/dL Normal 0.70-1.30 [facility] Comment on above: Performed By: #### P SASC #### [facility] [address] [address] [address] Brianda Renee EGFR-AF COLOMBIAN >60 Normal >=60 [facility] Comment on above: Performed By: #### P SASC #### [facility] [address] [address] [address] Brianda Renee EGFR-NON AF COLOMBIAN >60 Normal >=60 [facility] Comment on above: Performed By: #### P SASC #### [facility] [address] [address] [address] Brianda Renee Globulin (S) [Mass/Vol] 3.9 g/dL Normal [facility] Comment on above: Performed By: #### P SASC #### [facility] [address] [address] [address] Brianda Renee Glucose [Mass/Vol] 139 mg/dL Critically high 74-106 [facility] Comment on above: Performed By: #### P SASC #### [facility] [address] [address] [address] Brianda Renee Potassium [Moles/Vol] 4.1 mmol/L Normal 3.5-5.1 [facility] Comment on above: Performed By: #### P SASC #### [facility] [address] [address] [address] Brianda Renee Protein [Mass/Vol] 7.7 g/dL Normal 6.4-8.2 [facility] Comment on above: Performed By: #### P SASC #### [facility] [address] [address] [address] Brianda Renee Sodium [Moles/Vol] 138 mmol/L Normal 136-145 [facility] Comment on above: Performed By: #### P SASC #### [facility] [address] [address] [address] Brianda Renee Urea nitrogen [Mass/Vol] 20.0 mg/dL Critically high 7.0-18.0 [facility] Comment on above: Performed By: #### P SASC #### [facility] [address] [place], [place] [address] Dr. Brianda Renee Urea nitrogen/Creatinine [Mass ratio] 17.7 mg/mg Normal [facility] Comment on above: Performed By: #### P SASC #### [facility] [address] [place], [place] [address] Dr. Brianda Renee T4on 02-11-2022 T4 [Mass/Vol] 12.60 ug/dL Critically high 4.50-12.10 [facility] Comment on above: Performed By: #### P SASC #### [facility] [address] [place], [place] [address] Dr. Brianda Renee TSHon 02-11-2022 TSH 1.198 uIU/mL Normal 0.358-3.740 [facility] Comment on above: Performed By: #### P SASC #### [facility] [address] [place], [place] [address] Dr. Brianda Renee Cardiovascular Lab Reporton 06-05-2020 Cardiovascular Lab Report [facility] Patient Name: [facility] MR #: [id number] Physician: Benedicto Melo Department of M.D. Medicine Service Date: 06/04/2020 Division of Birthdate: 1965 Cardiology Room #: 4AB [id number] [facility] [address] [address] Cardiovascular Laboratory Report FINAL IMPRESSIONS: 1. Hazy, [...] postprocedural baseline. 7. Follow up with Dr. Melo in the [facility] as scheduled. 8. Follow up with Dr. Burns as scheduled. PROCEDURES: Ultrasound-guided access to the left common femoral artery, catheter placement in the abdominal aorta, and right lower extremity angiography, balloon angioplasty of the popliteal artery, bare metal stent placement of the right superficial femoral artery, placement of a 6-Mauritanian MynxGrip closure device. METHODS: After risks, benefits, and alternatives were explained, written informed consent was obtained. The patient was prepped and draped in usual sterile fashion over the left and right groins. Using 1% lidocaine solution, local infiltration anesthesia was achieved. Using modified Seldinger technique, a micropuncture kit under ultrasound guidance access to the left common femoral artery was obtained. A 5-Mauritanian x 11 cm sheath was inserted without difficulty. A 5-Mauritanian Uni-Flush catheter was advanced into the abdominal aorta. The aortic bifurcation was crossed using the Uni-Flush and a soft angled Glidewire. Angiography of the right lower extremity was performed. A 5-Mauritanian sheath was exchanged out for a 6-Mauritanian crossover Greg sheath. A V18 control wire [...] are outlined above. Electronically Signed by: Benedicto Melo M.D. 06/06/2020 09:58 A Benedicto Melo M.D. Date Dict: 06/04/2020/03:55 P/Benedicto Melo M.D. Date Trans: 06/05/2020 05:44 A/tian [id number] cc: Tuyet Burns M.D. [address], [facility] [phone] [place] [facility] Cardiovascular Lab Reporton 06-04-2020 Cardiovascular Lab Report [facility] Patient Name: [facility] MR #: [id number] Physician: Benedicto Melo, Department of M.D. Medicine Service Date: 06/04/2020 Division of Birthdate: 1965 Cardiology Room #: Adult [facility] Services [address] [place] [address] Cardiovascular Laboratory Report FINAL IMPRESSIONS: 1. Severe [...] be considered. 6. Follow up with Dr. Melo in the [facility]. 7. Follow up with Dr. Burns as scheduled. PROCEDURES: Catheter placement in the abdominal aorta. Right lower extremity angiography, balloon angioplasty of the right superficial femoral artery, drug coated balloon angioplasty of the right superficial femoral artery, placement of a 6-Mauritanian MynxGrip closure device in the left common [...] performed. This was exchanged out for a 5-Mauritanian sheath. A 5-Mauritanian Omniflush catheter was advanced in and positioned in the abdominal aorta. The aortic bifurcation was crossed using a combination of the 5-Mauritanian Omniflush and a soft angled Glidewire. The Omniflush was positioned over the contralateral femoral head. Angiography of the right lower extremity was performed. At this point, it was elected to proceed with an interventional procedure. The 5-Mauritanian sheath was exchanged out for a 6-Mauritanian crossover Greg sheath. Magic torque wire was used to traverse the stenoses in the right superficial femoral artery. Balloon angioplasty was performed initially over the most severe stenotic segments using a 5 x 40 mm psychometrician balloon. An inadequate result was treated using [...] abdominal aorta and exchanged out for a 6-Mauritanian short sheath. A 6-Mauritanian MynxGrip closure device was deployed per protocol [...] Lifestyle limiting claudication. Electronically Signed by: Benedicto Melo M.D. 06/04/2020 02:15 P Benedicto Melo M.D. Date Dict: 06/04/2020/09:29 Chantel/Benedicto Melo M.D. Date Trans: 06/04/2020 09:59 Chantel/tian [id number] cc: Tuyet Burns M.D. [address] [facility] [id number] Normal [facility] Cardiovascular Lab Reporton 05-13-2020 Cardiovascular Lab Report [facility] Patient Name: Yogi Mclean [facility] MR #: [id number] Physician: Benedicto Melo, Department of M.D. Medicine Service Date: 05/13/2020 Division of Birthdate: 1965 Cardiology Room #: Adult Cardiovascular Services [address] [place] [address] Cardiovascular Laboratory Report FINAL IMPRESSIONS: Aborted attempts [...] lower extremity. 4. Follow up with Dr. Melo as scheduled. PROCEDURES: Ultrasound and fluoroscopic guided [...] positioning and wire position was obtained. A 5-Mauritanian dilator was advanced without difficulty. Inability to advance the short 6-Mauritanian sheath was encountered. The sheath was inadvertently [...] peripheral arterial disease. Electronically Signed by: Benedicto Melo M.D. 05/13/2020 02:39 P Benedicto Melo M.D. Date Dict: 05/13/2020/09:02 Chantel/Benedicto Melo M.D. Date Trans: 05/13/2020 09:13 Chantel/tian [id number] cc: Tuyet Burns M.D. [address] [id number] Normal [facility] Cardiovascular Lab Reporton 04-12-2020 Cardiovascular Lab Report [facility] Patient Name: Yogi Mclean [facility] MR #: [id number] Physician: Benedicto Melo, Department of M.D. Medicine Service Date: 04/11/2020 Division of Birthdate: 1965 Cardiology Room #: [id number] Adult Cardiovascular Services [facility] [address] [place], [place] [address] Cardiovascular Laboratory Report FINAL IMPRESSIONS: 1. Long [...] symptoms worsen. 5. Follow up with Dr. Melo as scheduled. 6. Follow up with his family physician as scheduled. PROCEDURES: Ultrasound-guided access to the right common femoral artery, bilateral lower extremity angiography, catheter placement in the abdominal aorta, abdominal aortography, catheter placement in the left external iliac artery, percutaneous balloon angioplasty and stent placement in the left superficial femoral artery, placement of a 6-Mauritanian MynxGrip closure device over the right common [...] common femoral artery was performed via the 5-Mauritanian sheath. Angiography of the right lower extremity was performed by hand injection through the side arm of the sheath. During angiography, the 5-Mauritanian sheath was inadvertently dislodged; hemostasis was held over the right common femoral artery. After appropriate hemostasis, access to the right common femoral artery was obtained using the micropuncture kit. A 5-Mauritanian sheath was introduced. A 5-Mauritanian Uniflush catheter was advanced and positioned in the abdominal aorta. Abdominal aortography was performed. Prior to this, angiography of the right iliac system was performed. The aortic bifurcation was crossed using the combination of the 5-Mauritanian Uniflush and a soft angled Glidewire. The Uniflush was positioned at the level of the left femoral head. Angiography of the left lower extremity was performed. 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 At this juncture, it was elected to proceed with an interventional procedure. A 5-Mauritanian sheath was exchanged out for a 6-Mauritanian Greg sheath over an Amplatz Super Stiff [...] Greg sheath was exchanged out for a 6-Mauritanian sheath. A 6-Mauritanian MynxGrip closure device was deployed per protocol [...] INDICATIONS: Lifestyle limiting claudication. Electronically Signed by: Bendeicto Melo M.D. 04/18/2020 11:40 A Benedicto Melo M.D. Date Dict: 04/11/2020/04:38 Bill/Benedicto Melo M.D. Date Trans: 04/12/2020 12:49 A/tian [id number] cc: Tuyet Burns M.D. [address] [place] [address] Normal [facility] POC GLUCOSE LABon 04-11-2020 Glucose [Mass/Vol] 198 mg/dL High 70-100 [facility] Comment on above: Performed By: #### [id number] #### [facility] [address] [facility]. [address] *SARS-CoV-2 COVID-19on 04-09 [id number] Not Detected Normal Not Detected [facility] Comment on above: Order Comment: The A ptima SARS-CoV-2 assay is a nucleic acid amplification test intended for the qualitative detection of RNA from SARS-CoV-2 isolated and purified from nasopharyngeal (ELECTRICAL ENGINEERING PROFESSOR),oropharyngeal (OP), nasal swab, sputum, and bronchoalveolar lavage (BAL) specimens from patients with signs and symptoms of infection who are suspected of COVID-19. Results are for the identification of SARS-CoV-2 RNA. The SARS-CoV-2 RNA is generally detectable during the acute phase of infection. The Aptima SARS-CoV-2 Assay on the [employer] and [employer] system is intended for use by laboratory personnel specifically instructed and trained in the operation of the [employer] system. The Aptima SARS-CoV-2 assay is [...] information. Performed By: #### [id number] #### [facility] [address] [place], [place] [id number] [place] [address] Encounters Encounter Date Encounter Type Care Provider Facility Start: 04-10-2025 End: 04-10-2025 ambulatory [facility] Start: 02-22-2025 End: 02-22-2025 ambulatory [facility] Start: 03-26-2023 ambulatory Mary SILVA Facility:[facility] Start: 11-25-2022 End: 11-26-[address] TUYET BURNS . Facility:[facility] Start: 10-30-2022 End: 10-31-2022 ambulatory Mary SILVA Facility:[facility] Start: 10-19-2022 End: 10-20-[address] TUYET [...] abnormal findings DR TUYET BURNS . [facility] Start: 02-11-2022 End: 02-12-[address] TUYET BURNS . Facility:[facility] Start: 02-11-2022 End: 02-12-2022 Encounter for general adult medical examination without abnormal findings DR TUYET BURNS . Facility: Start: 06-04-2020 End: 06-05-2020 Patient encounter procedure [facility] Start: 05-13-2020 End: 05-14-2020 Patient encounter procedure [facility] Start: 04-11-2020 End: 04-12-2020 Patient encounter procedure [facility] Procedures Date Procedure Procedure Detail Performing Clinician Start: 02-11-[address] ROSEY GATES Comment on above: Performed By: #### P [facility] #### [facility] [address] [address] [address] Brianda Renee Payers Date Payer Category Payer Unknown [id number] 2.16.8 [id number] 1965 Unknown [id number] 2.16.8 [id number] 1965 Unknown [id number] 2.16.8 [id number] 1965 Unknown [id number] 2.16.84 [id number] 1965 Unknown [id number] 2.16.84 0.1.559250.3.579.2.593 1965 Unknown [id number] 2.16.84 0.1.617538.3.579.2.593 1965 Unknown [id number] 2.16.84 0.1.136940.3.579.2.593 1965 Unknown [id number] 2.16.84 0.1.940134.3.579.2.593 1965 Unknown [id number] 2.16.84 0.1.619860.3.579.2.593 1965 Unknown [id number] 2.16.84 0.1.847047.3.579.2.593 1965 Unknown [id number] 2.16.84 0.1.458949.3.579.2.593 1965 Unknown [id number] 2.16.84 0.1.772447.3.579.2.593 1965 Unknown [id number] 2.16.84 0.1.152718.3.579.2.593 1965 Unknown [id number] 2.16.8 40.1.312000.3.579.2.727 1965 Unknown [id number] 2.16.8 [id number] 1959 Unknown [id number] 1959 Unknown [id number] Progress note 04-10-2025 Note Date & Type Note Facility 04-10-2025 Note No associated orders from this encounter found during lookback period of 72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
--- NOTE | 2025-04-12 19:23 | ED_ITS ---
HPI - Dental/Oral General Chief complaint: Dental/Oral Stated complaint: ORAL PAIN Time Seen by Provider: 04/12/25 19:21 Source: patient Mode of arrival: walk-in Limitations: no limitations History of Present Illness HPI Narrative: 59 year old male presents to the ED for right upper dental pain. It has worsened over the past few days. Tylenol has not been helping with his pain. Denies fever, chills, injury, SOB, difficulty swallowing. He is driving today which limits his pain treatment options here. Pt is currently drinking coffee. Location: Tooth # (5) Related Data Home Medications ?Medication ?Instructions ?Recorded ?Confirmed aspirin 81 mg tablet,delayed mg 04/12/25 release atorvastatin 80 mg tablet mg 04/12/25 carvedilol 25 mg tablet mg 04/12/25 clonidine HCl 0.1 mg tablet mg 04/12/25 clopidogrel 75 mg tablet mg 04/12/25 diltiazem HCl 120 mg mg PO 04/12/25 capsule,extended release 24 hr empagliflozin 10 mg tablet mg 04/12/25 (Jardiance) levothyroxine 75 mcg tablet mcg 04/12/25 metformin 500 mg tablet mg 04/12/25 pantoprazole 40 mg tablet,delayed mg PO 04/12/25 release pioglitazone 30 mg tablet mg 04/12/25 quetiapine 100 mg tablet mg 04/12/25 valsartan 320 tab 04/12/25 mg-hydrochlorothiazide 12.5 mg tablet Previous Rx's ?Medication ?Instructions ?Recorded hydrocodone 5 mg-acetaminophen 325 1 tab PO Q8H PRN pa in 4 days #12 04/12/25 mg tablet tabs penicillin V potassium 500 mg 500 mg PO Q6H 10 days #4 0 tabs 04/12/25 tablet Allergies Allergy/AdvReac Type Severity Reaction Status Date / Time No Known Drug Allergies Allergy Verified 04/12/25 18:42 Review of Systems ROS Constitutional Denies: fever or chills Ears, nose, mouth, and throat Denies: throat pain, neck pain or swelling of lips/tongue Cardiovascular Denies: chest pain Respiratory Denies: shortness of breath Neurological Denies: headache or dizziness PFSH PFSH Social History Little interest or pleasure in doing things: not at all Feeling down, depressed, or hopeless: not at all Exam Constitutional Vital Signs, click to edit/add: Last Vital Signs Temp 98.1 F 04/12/25 18:44 Pulse 67 04/12/25 18:44 Resp 18 04/12/25 18:44 BP 135/83 04/12/25 18:44 Pulse Ox 97 04/12/25 18:44 O2 Del Method Room Air 04/12/25 18:44 HENMT Throat: posterior oropharynx normal and uvula midline Other: Tooth #5 broken. No drainage or swelling to area. No facial swelling. No sw elling to floor of mouth. Pt speaking in full sentences, handling secretions well. Eye Common normals: conjunctivae normal and no scleral icterus Neck & C-Spine Common normals: supple Course Vital Signs Vital signs: Vital Signs Temperature 98.1 F 04/12/25 18:44 Pulse Rate 67 04/12/25 18:44 Respiratory Rate 18 04/12/25 18:44 Blood Pressure 135/83 04/12/25 18:44 Pulse Oximetry 97 04/12/25 18:44 Oxygen Delivery Method Room Air 04/12/25 18:44 Temperature 98.1 F 04/12/25 18:44 Pulse Rate 67 04/12/25 18:44 Respiratory Rate 18 04/12/25 18:44 Blood Pressure 135/83 04/12/25 18:44 Pulse Oximetry 97 04/12/25 18:44 Oxygen Delivery Method Room Air 04/12/25 18:44 MDM - Dental/Oral MDM Narrative Medical decision making narrative: OARRS was reviewed. Prescriptions were provided for PCN and norco. Follow up with a dentist for a recheck, further evaluation and treatment. He reported he has a dentist for follow up. Return to the ED for worsening symptoms. Medical Records Attestation: I reviewed the patient's medical records. Discharge Plan Discharge Chief Complaint: Dental/Oral Clinical Impression: Toothache Patient Disposition: Home, Self-Care Time of Disposition Decision: 19:27 Condition: Good Mode of Transportation: Private Vehicle Prescriptions / Home Meds: New penicillin V potassium 500 mg tablet 500 mg PO Q6H 10 Days Qty: 40 0RF hydrocodone-acetaminophen 5-325 mg tablet 1 tab PO Q8H PRN (Reason: pain) 4 Days Qty: 12 0RF No Action metformin 500 mg tablet atorvastatin 80 mg tablet carvedilol 25 mg tablet clonidine HCl 0.1 mg tablet clopidogrel 75 mg tablet aspirin 81 mg tablet,delayed release (DR/EC) quetiapine 100 mg tablet levothyroxine 75 mcg tablet pantoprazole 40 mg tablet,delayed release (DR/EC) PO diltiazem HCl 120 mg capsule,extended release 24hr PO pioglitazone 30 mg tablet valsartan-hydrochlorothiazide 320-12.5 mg tablet Jardiance 10 mg tablet Print Language: Khmer Additional Instructions: Follow up with your dentist. Return to the ER for worsening symptoms. Referrals: Dante Burns MD [Primary Care Provider, Family Practice] - 1 week
[2025-04-12 19:50] VITALS: BP 135/89; O2SAT 98
== END 2025-04-12 19:51 | disposition home or self-care (01) ==
PROVIDERS: Emergency Provider Emergency Medicine; PCP Family Medicine
DX: K08.89 Other specified disorders of teeth and supporting structures (principal)
CPT/HCPCS: 99283